=== PATIENT | female | born 1975 | race Caucasian/White ===

== ENCOUNTER 2016-11-12 18:23 | Emergency (ER) | payer MEDICAID ==
[~2016-11-12] VITALS: Ht 175.3 cm; Wt 110.2 kg
[~2016-11-12 18:23] MED LIST: BUSPAR 10MG TAB10 MG PO; LISINOPRIL 10MG10 MG PO; LISINOPRIL/HCTZ1 TA3 PO; LORTAB 5/3251 TAB PO; MELOXICAM15 MG PO; PAXIL40 M1 PO; TRAZODONE 50MG50 MG PO; WELLBUTRIN 150150 MG PO; ZANAFLEX4 MG NG
[2016-11-12] MEDS ORDERED: ZUBSOLV1 TA1 SL (18:39)
[2016-11-12 19:39] LABS: HEMOGLOBIN 14.2 g/dL (12.2-16.2); LYMPH # 2.3 K/mm3 (0.7-4.5); LYMPH % 23.2 % (10-50.0)
[2016-11-12 19:39] LABS: URINE BILIRUBIN - DIPSTICK NEGATIVE (NEG); URINE BLOOD NEGATIVE (NEG)
[2016-11-12 19:47] LABS: URINE SQUAMOUS CELLS OCC #/hpf (0-5)
--- NOTE | 2016-11-12 19:58 | Emergency Room Report ---
History of Present Illness Time Seen by 183 Presenting Problem in Triage Pt arrived:Wheelchair Presenting Problem:PT STATES SHE HAS FALLEN TWICE TODAY, STATES THE SECOND FALL SHE HIT THE BACK OF HER HEAD ON THE COFFEE TABLE. PT STATES PT LEGS HAS BEEN "JERKING" SINCE THIS MORNING. PT STATES SHE THINKS SHE HAD A SEIZURE. 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 N Clinical Suspician of Infection? N Mental Status: 1 - Regular (Normal Baseline) Sepsis Risk:Possible Sepsis Risk Have you (or family members/close friends) recently traveled outside the [place]? N If Yes, where/when: Have you had exposure to infectious disease within the past month? N TB? Other? Specify: Source patient, RN notes reviewed, family, RN/MD Exam Limitations no limitations Comment This is a 41-year-old female patient brought in to the emergency room by her by POPaulette after sustaining 2 falls, at home, earlier today. Patient advised that she has been having "jerking movements" since earlier today, which believes that could be seizures. She has had similar episodes (of "jerking") for the past 3 years (off and on), however she has never sought medical treatment for such complaints, as describes her (the patient) as "stubborn". During one of the falls, the patient hit the back of her head, but denies any loss of consciousness. The patient moved from [place] to [place] just recently and started going to Dr. Murray's office. ALLERGIES Coded Allergies: Penicillins (Intermediate, 10/06/16) codeine (Intermediate, 10/06/16) Home Medications Reported Medications Bupropion Hcl Sr (Wellbutrin SR 150MG) 150 MG PO BID Lisinopril & Hctz (Lisinopril-Hctz 10-12.5 MG Tab) 1 TAB PO DAILY #30 Paroxetine HCl (Paxil) 40 MG PO DAILY Buspirone Hcl (Buspar 10MG) 10 MG PO BID Meloxicam (Meloxicam 15MG) 15 MG PO DAILY TRAZODONE HCL (Trazodone HCl) 100 MG PO QHS TIZANIDINE HCL (Zanaflex) 4 MG NG Q8 BUPRENORPHINE HCL/NALOXONE HCL (Zubsolv 5.7-1.4 MG Tablet Sl) 1 TAB SL BID #14 History Medical History General CAD? No Angina: No [place]: No Hypertension? Yes Hyperlipidemia? No CHF? No DVT? No PE? No COPD? No Asthma? No Anemia? No GERD? No Gastric ulcers? No GI Bleed? No Hernia? No Thyroid Problems? No Hypothyroidism? No CVA? No Seizures? No Diabetes? No End Stage Renal Disease? No UTI? Yes Stones? No GB Disease: Yes Nephritic Syndrome? No Asplenia? No Hepatitis? No Sickle Cell Disease? No Arthritis? Yes Migraines? No Cataracts? No Glaucoma? No MRSA? No HIV? No TB? No Anxiety? Yes Depression? Yes Cancer? No More? 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 Social History Smoking Hx Smoker: Current Every Day Smoker Tobacco: Yes Type Cigarettes Packs/day 2 1/2 - 3 Packs Alcohol Alcohol: No Review of Systems All Other Systems Reviewed and Negative Psychiatric/Neurological headache, seizure Physical Exam Vital Signs Vital Signs Date Time Temp Pulse Resp B/P Pulse O2 O2 Flow FiO2 Ox Delivery Rate 11/13 2039 99.2 88 14 161/100 92 11/12 1946 88 14 161/100 92 11/12 1828 99.2 95 20 131/84 91 General Appearance normal appearance, WD/WN, mild distress Eye Exam - bilateral eye normal exam, bilateral eye PERRL, bilateral eye EOMI Neck normal inspection, non-tender, supple, full range of motion Respiratory Status Yes: trachea midline, chest symmetrical, non tender chest. No: respiratory distress. Lung Sounds bilateral: normal breath sounds, lungs clear. 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 Mental status normal mood/affect Skin intact, normal color, warm/dry Medical Decision Making LABS/Meds/Orders Pt receiving controlled substance in ED? No Comment Upon reevaluation patient appears medically stable, in minimal distress, clinically improving. Advised patient of results obtained, need to return to Dr. Murray's office and have additional outpatient follow-up (MRI brain with iv contrast). No antiepileptic treatment will need to be initiated at this time. Patient advised to avoid heights and operating machinery until seen and cleared by a neurologist. It turned out that Flaco Dunlap has already referred her to a neurologist, at . Results/Orders Laboratory Tests 11/12/161929: Urine Color YELLOW, Urine Appearance CLEAR, Urine pH 7.5, Ur Specific [place] <= 1.005, Urine Protein NEGATIVE, Urine Ketones NEGATIVE, Urine Blood NEGATIVE, Urine Nitrate NEGATIVE, Urine Bilirubin NEGATIVE, Urine Urobilinogen 0.2, Ur Leukocyte Esterase NEGATIVE, Ur Squamous Epith Cells OCC, Urine Glucose NEGATIVE 11/12/161909: Sodium 138, Potassium 3.9, Chloride 101, Carbon Dioxide 34 H, BUN 5 L, Creatinine 0.8, Estimated Creat Clear 163, Estimated GFR (MDRD) 79, Glucose 112 H, Calcium 8.6, Total Bilirubin 0.5, AST 19, ALT 77, Alkaline Phosphatase 86, Total Protein 7.1, Albumin 3.6, Globulin 3.5 H, Albumin/Globulin Ratio 1.0 L, WBC 9.8, RBC 4.32, Hgb 14.2, Hct 42.7, MCV 98.9 H, RDW 13.5, Plt Count 183, MPV 7.2 L, Gran % 72.6, Gran # 7.1, Lymphocytes % 23.2, Monocytes % 3.0, Eosinophils % 0.6, Basophils % 0.6, Lymphocytes # 2.3, Monocytes # 0.3, Eosinophils # 0.1, Basophils # 0.1, PUBS MCHC 33.3, MCH 32.9 H Current Medication Orders Sig/Michael Start time Last Medication Dose Route Stop Time Status Admin Lorazepam 1 MG ONCE ONE 11/12 2014 CAN IV 11/13 2015 Sodium Chloride 10 ML PRN PRN 11/12 184 DCD IV 11/13 1839 Orders Procedure Date/time Status DIET-NOTHING BY MOUTH 11/[address] HEAD W/O CONTRAST 11/[address] HEAD REQ 11/13 1839 Complete IV SALINE LOCK 11/13 1839 Active URINALYSIS/COMPLETE 11/13 1839 Complete CBC WITH AUTO DIFF 11/13 1839 Complete CHEM 12 PROFILE 11/13 1839 Complete XRAY/CT/US XRAY/CT/US CT head CT interpretation by discussed w/radiologist CT Results RIGHT parietal mass, with focal calcifications - per radiologist report. Departure Departure Time of Disposition 2017 Disposition DC Home or Self Care(routine) Clinical Impression Primary Impression: Brain mass Secondary Impressions: Seizures Condition STABLE Referrals Flaco Dunlap next wednesday Patient Instructions DI for Brain Tumor and Brain Cancer, Seizure Disorder -- Adult Additional Instructions The noncontrast CT scan of your brain that showed small mass in the medial RIGHT parietal lobe. He is to follow-up with Annie Dunlap in order to obtain a contrast MRI pf your brain, also follow-up with your neurologist, to whom you were already referred. Please do not operate machinery, do not climb on heights, do not drive to scene and cleared by the neurologist. No seizure medications are medically necessary at this time. A copy of your CT scan is attached. Discharge Counseling Counseled pt/family regarding diagnosis, test results, medications/RX, home care, follow up needs Comment The noncontrast CT scan of your brain that showed small mass in the medial RIGHT parietal lobe. He is to follow-up with Annie Dunlap in order to obtain a contrast MRI pf your brain, also follow-up with your neurologist, to whom you were already referred. Please do not operate machinery, do not climb on heights, do not drive to scene and cleared by the neurologist. No seizure medications are medically necessary at this time. A copy of your CT scan is attached. ED Critical Care Critical Care No at 0122
[2016-11-12 20:40] VITALS: BP 161/100
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
== END 2016-11-12 20:43 | disposition home or self-care (01) ==
LOC: ER 18:23
PROVIDERS: Emergency Medicine
DX: R22.0 Localized swelling, mass and lump, head (principal); I10 Essential (primary) hypertension; Z72.0 Tobacco use

== ENCOUNTER 2017-02-23 16:23 | Emergency (ER) | payer MEDICAID ==
[~2017-02-23] VITALS: Ht 175.3 cm; Wt 90.7 kg
[~2017-02-23 16:23] MED LIST changes: +GABAPENTIN800 MG PO; +KEPPRA500 MG PO; +NICOTINE PATCH;21 MG TD; +ZUBSOLV1 TA1 SL
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
--- OUTSIDE RECORDS SUMMARY | 2017-02-23 17:27 | External Medical Summary Rpt ---
Author Author , LORNA ROTHMAN Address Unknown Phone [email or web address] Care Team Providers Care Family And Consumer Education Teacher Name Role Phone SHEELA RAZ, AHMED RAZ Unavailable Unavailable WEN FREDA, WEN FREDA Unavailable Unavailable BEINEKE, BEINEKE Unavailable Unavailable DAMICO, DAMICO Unavailable Unavailable MARIE CAM, Unavailable Unavailable MARIE CAM CHIPPS JABIER & Unavailable Unavailable DUBILIER, CHIPPS JABIER & DUBILIER JUAN C, Unavailable Unavailable SILVIANO, JUAN C, SILVIANO [facility] Unavailable Unavailable [facility] CRIS, CRIS Unavailable Unavailable [facility] Unavailable Unavailable PHYSICAL THERA, [facility] ZACKARY RUIZ, Unavailable Unavailable ZACKARY RUIZ FOGG Unavailable Unavailable SNEHA HOOVER Unavailable Unavailable Pedrito MCPHERSON, VIDA, Unavailable Unavailable K KENTRELL BAILEY Unavailable Unavailable HARPEL, HARPEL Unavailable Unavailable [facility] Un[facility] Un[facility], [facility] Unavailable Unavailable HOSPITAL P, [facility] ANDREZ STROUD, MAGUIRE Unavailable Unavailable TIF PRO, PRO Unavailable Unavailable PRO, PRO Unavailable Unavailable [facility], Unavailable Unavailable [facility] MORALES LESIA, MORALES LESIA Unavailable Unavailable CASTRO, CASTRO Unavailable Unavailable ZACARIAS PRITCHARD ZACARIAS Unavailable Unavailable ADDY CAICEDO, Unavailable Unavailable ADDY [facility] Unavailable Unavailable IMAGING ASS, [facility] ESTELLE CADENA, ESTELLE CADENA Unavailable Unavailable VIJAYA LILLY JR JR Unavailable Unavailable ABHI DE LEON, Unavailable Unavailable ABHI DE LEON MULLINS Unavailable Unavailable JIN PORTILLO, PORTILLO Unavailable Unavailable PORTILLO JAM, PORTILLO Unavailable Unavailable JAM PAVEZ, PAVEZ Unavailable Unavailable ALEX BENTON, Unavailable Unavailable ALEX BENTON [facility] Unavailable Unavailable [facility], [facility] Unavailable Unavailable [facility], [facility] Un[facility] Un[facility], [facility] Unavailable Unavailable PLL[facility], [facility] Nilson MÁRQUEZ, Unavailable Unavailable Nilson MÁRQUEZ [facility], Unavailable Unavailable [facility], Unavailable Unavailable [facility] Unavailable Unavailable [facility], [facility] AMILCAR JAM, AMILCAR Unavailable Unavailable LILY [facility], Unavailable Unavailable [facility] TATIANNA FIERRO, TATIANNA LAR Unavailable Unavailable Purpose Continuity of Care Document - 11-10-2007 through 2016 Problems Code Diagnosis DOS Provider Status [id number] MYOPIA 01-26-2017 PRO BILATERAL N6012 DIFFUSE 12-28-2016 [facility] MASTOPATHY INC OF LEFT BREAST N951 MENOPAUSAL 12-28-2016 [facility] STATES R6882 DECREASED 12-28-2016 [facility] LIBIDO [facility] R928 OTH ABNORM 12-28-2016 [place] [facility] INCONCLUSIV IMAGING ASS E FIND ON DX IMAG BREAST N3644 MUSCULAR 12-25-2016 [facility] DISORDERS PHYSICIANS OF URETHRA GROUP I70176 ENCOUNTER 12-04-2016 [facility] EXAM [facility] GENERAL RTN INC W/O ABNORMAL FIND Z1231 ENCOUNTER 12-04-2016 [facility] MEDICAL MAMMO MALIG IMAGING ASS NEOPLASM BREAST I10 ESSENTIAL 11-30-2016 [facility] PRIMARY [facility] HYPERTENSIO GROUP N N393 STRESS 11-30-2016 [facility] INCONTINENC PHYSICIANS E FEMALE GROUP MALE N819 FEMALE 11-30-2016 [facility] GENITAL [facility]YS[facility] PROLAPSE GROUP UNSPECIFIED N9412 DEEP 11-30-2016 [facility] DYSPAREUNIA [facility] GROUP N952 POSTMENOPAU 11-30-2016 [facility] ATROPHIC GROUP VAGINITIS R4189 OTH SX & 11-30-2016 [facility] SIGNS INVLV PHYSICIANS COGNITIVE GROUP FUNC & AWARENESS R569 UNSPECIFIED 11-30-2016 [facility] CONVULSIONS GROUP R9089 OTH 11-30-2016 [facility] ABNORMAL PHYSICIANS FIND ON DX GROUP IMAGING CNTRL NERV SYS [id number] ENCOUNTER 11-30-2016 [facility] RN URGENT CARE EXAM PHYSICIANS GENERAL RTN GROUP W/ABNORMAL FIND Z1212 ENCOUNTER 11-30-2016 [facility] SCREENING PHYSICIANS MALIGNANT GROUP NEOPLASM RECTUM R220 LOCALIZED 11-12-2016 [facility] MASS AND INC LUMP HEAD R51 HEADACHE 11-12-2016 [facility] [id number] UNSPECIFIED 11-12-2016 [place] INJURY OF MEDICAL HEAD IMAGING ASS INITIAL ENCOUNTER Z720 TOBACCO USE 11-12-2016 [facility] I159 SECONDARY 11-09-2016 [facility] HYPERTENSIO [facility]YSICIANS N GROUP UNSPECIFIED R232 FLUSHING 11-09-2016 [facility] R531 WEAKNESS 11-09-2016 [facility] [id number] SLEEP 11-09-2016 [facility] DEPRIVATION [facility] GROUP K8010 CALCULUS GB 10-06-2016 [facility] W/CHRONIC JABIER & CHOLECYST DUBILIER W/O OBSTRUCTION K8020 CALCULUS GB 10-06-2016 [place] W/O MEDICAL CHOLECYSTIT IMAGING ASS IS W/O OBSTRUCTION K810 ACUTE 10-06-2016 COMM[facility]ITY CHOLECYSTIT ANESTH OF IS THE BLUE K828 OTHER 10-06-2016 [place] SPECIFIED MEDICAL DISEASES OF IMAGING ASS GALLBLADDER R1011 RIGHT UPPER 10-06-2016 [place] QUADRANT MEDICAL PAIN IMAGING ASS K8000 CALCULUS GB 10-05-2016 [facility] W/ACUTE [facility] P W/O OBSTRUCTION X36821 ENCOUNTER 10-05-2016 [place] FOR OTHER MEDICAL PREPROCEDUR IMAGING ASS AL EXAMINATION M899 DISORDER OF 08-05-2016 [facility] UNSPEC[facility] R109 UNSPECIFIED 07-23-2016 [facility] G8921 CHRONIC 07-22-2016 [facility] PAIN DUE TO [facility]MA [facility] [id number] PAIN IN 07-22-2016 [facility] LEFT HIP [facility] M5136 OTH 07-22-2016 [facility] INTERVERTEB [facility] RAL DISC HOSP DEGEN LUMBAR REGION V36440 PAIN IN 07-22-2016 [facility] LEFT LEG [facility] G629 POLYNEUROPA 06-22-2016 [facility] THY [facility] UNSPECIFIED H[facility]P M2140 FLAT FOOT 05-20-[address] [facility] UNSPECIFIED FOOT [id number] POSTERIOR 05-20-2016 [facility]IAL [facility] TENDINITIS [facility] UNSPECIFIED LEG R197 DIARRHEA 05-20-2016 [facility] G5600 CARPAL 04-17-2016 [facility] SYNDROME UNSPECIFIED UPPER LIMB G5603 CARPAL 04-16-[address] [facility] TUNNEL [facility] SYNDROME HOSP BILATERAL UPPER LIMBS M461 SACROILIITI 04-16-2016 [facility] S NOT [facility] ELSEWHERE HOSP CLASSIFIED M1612 UNILATERAL 04-15-[address] [facility] OSTEOARTHRI CENTER TIS LEFT HIP M1712 UNILATERAL 04-15-2016 [facility] PRIMARY RADIOLOG[facility] OSTEOARTHRI PLLC TIS LEFT KNEE N05170 PAIN IN 04-15-2016 [facility] UNSPECIFIED RADIOLOGY ANKLE PLLC M8580 OTH SPEC 04-15-2016 [facility] STRUCTURE UNS SITE M542 CERVICALGIA 02-12-2016 [facility] M5416 RADICULOPAT 02-10-2016 [facility] EDDY LUMBAR [facility] M545 LOW BACK 01-08-2016 [facility] PAIN [facility] G8929 OTHER 11-13-2015 [facility] U68499 PAIN IN 11-13-2015 [facility] M97969 PAIN IN 11-13-2015 [facility] THIGH MEDICAL CENTER Z5181 ENCOUNTER 11-13-2015 [facility] CENTER DRUG LEVEL MONITORING Z58995 FPC 11-13-2015 [facility] CURRENT USE MEDICAL OF OPIATE CENTER ANALGESIC T1490 INJURY 06-14-2015 [place] UNSPECIFIED MEDICAL [place] K80209 OTHER LONG 06-14-2015 [facility] MEDICAL CURRENT CENTER DRUG THERAPY M5417 RADICULOPAT 05-21-2015 [facility] EDDY [facility] LUMBOSACRAL HOSP REGION M532X8 SPINAL 05-09-2015 [facility] INSTABILITI [facility] ES SAC HOSP SACROCOCCYG EAL REGION Z9889 OTHER 04-17-2015 [facility] SPECIFIED [facility] POSTPROCEDU HOSP RAL STATES N800 ENDOMETRIOS 04-16-2015 [facility] IS OF [facility] UTERUS HOSP N812 INCOMPLETE 04-16-2015 [facility] UTEROVAGINA [facility] L PROLAPSE HOSP N814 UTEROVAGINA 04-16-2015 [facility] L PROLAPSE MEDICAL UNSPECIFIED CENTER N938 OTHER SPEC 04-16-2015 [facility] ABNORMAL [facility] UTERINE & HOSP VAGINAL BLEEDING 70162 DEGEN 04-10-2015 [facility] LUMBAR/LUMB [facility] OSACRAL HOSP INTERVERTEB RAL DISC 7242 LUMBAGO 04-10-2015 [facility] 7244 THORACIC/MANDI 04-10-2015 [facility] MBOSACRAL [facility] NEURITIS/RA HOSP DICULITIS UNSPEC 7246 DISORDERS 04-10-2015 [facility] OF SACRUM [facility] 7202 SACROILIITI 04-04-2015 [facility] S NOT [facility] ELSEWHERE HOSP CLASSIFIED 6264 IRREGULAR 03-28-2015 [facility] MENSTRUAL [facility] CYCLE HOSP 6268 OTH D/O 03-28-2015 [facility] MENSTRUATIO [facility] N&OTH ABN HOSP BLEED FE GNT TRACT 08502 DISORDER OF 02-18-2015 [facility] UNSPECIFIED 47540 HYPERTENSIO 02-18-2015 [facility] Salazar [facility] V5869 LONG-TERM 02-18-2015 [facility] (CURRENT) MEDICAL USE OF [place] OTHER MEDICATIONS V5883 ENCOUNTER 02-18-2015 [facility] THERAPEUTIC [place] DRUG MONITORING V700 ROUTINE 02-18-2015 [facility] EXAM@HEALTH CARE FACL 24968 PAIN IN 02-11-2015 [facility] JOINT [facility] PELVIC HOS[facility] REGION AND THIGH 7197 DIFFICULTY 02-11-2015 [facility] IN WALKING [place] PHYSICAL THERA 7243 SCIATICA 02-11-2015 [facility] PHYSICAL THERA 4019 UNSPECIFIED 01-14-2015 [facility] INC N 7213 LUMBOSACRAL 01-14-2015 [facility] SPONDYLOSIS [place] WITHOUT MYELOPATHY V725 RADIOLOGICA 01-14-2015 [facility] Ontiveros RADIOLOGY EXAMINATION [facility] NEC 7245 UNSPECIFIED 12-27-2014 [facility] BACKACHE RADIOLOGY PLL 6110 INFLAMMATOR 05-30-2014 [facility] Y DISEASE [facility] [place] 58648 UNSPECIFIED 10-17-2009 [facility] V720 EXAMINATION 10-10-2009 [facility], OF EYES ABHI G AND VISION 9594 INJURY 02-05-2009 [facility] OTHER AND RADIOLOGY UNSPECIFIED PLL HAND EXCEPT FINGER 6202 OTHER AND 01-10-2008 [facility] 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 [facility] 6262 EXCESSIVE 01-10-2008 [facility] OR 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 [facility]ENSTRUATIO [facility] 35576 ABDOMINAL 01-08-2008 DIAGNOSTIC PAIN RIGHT [facility] QUADRANT 3671 MYOPIA 11-10-2007 COUCH-COM PTON, SILVIANO 96503 UNSPECIFIED 11-10-2007 COUCH-COM PTON, ASTIGMATISM SILVIANO Medications Na ND Rx Da Fi Fi Am Da Di Ph RX Ph St me C No te ll ll ou ys ag ar # ys at rm s nt no ma ic us Or Da si cy ia de te s n re d NI 00 07 08 28 28 00 HO Ac CO 53 -1 -1 .0 00 ME ti TI 65 8- 1- 00 06 TO ve NE 89 20 20 09 WN 68 17 17 08 21 8 81 PH AR MG MA /2 CY 4H R OF PA TC CY H NT HI AN A BU 68 07 08 30 30 00 HO Ac NJ 00 -1 -0 .0 00 ME ti OP 10 2- 4- 00 06 TO ve IO 28 20 20 08 WN N 70 17 17 61 HC 3 17 PH L AR XL MA CY 15 0 OF MG CY TA NT BL HI ET AN A OX 62 07 08 30 30 00 HO Ac YB 17 -1 -0 .0 00 ME ti UT 50 2- 4- 00 06 TO ve YN 27 20 20 08 WN IN 13 17 17 90 7 89 PH CL AR MA ER CY 10 OF MG CY NT TA HI BL AN ET A PA 68 07 08 30 30 00 HO Ac RO 38 -1 -0 .0 00 ME ti XE 20 2- 4- 00 06 TO ve TI 00 20 20 08 WN NE 10 17 17 92 6 54 PH HC AR L MA 40 CY MG OF TA CY BL NT ET HI AN A BU 00 07 08 60 30 00 HO Ac SP 11 -1 -0 .0 00 ME ti IR 51 2- 4- 00 06 TO ve ON 69 20 20 09 WN E 10 17 17 05 HC 2 93 PH L AR 10 MA CY MG OF TA BL CY ET NT HI AN A ME 68 06 07 30 30 00 HO Ac LO 38 -2 -2 .0 00 ME ti XI 20 9- 8- 00 06 TO ve CA 05 20 20 08 WN M 00 17 17 98 7. 5 94 PH 5 AR MG MA CY TA BL OF ET CY NT HI AN A GA 68 06 07 90 30 00 HO Ac BA 00 -2 -2 .0 00 ME ti PE 10 9- 8- 00 06 TO ve NT 00 20 20 08 WN IN 70 17 17 98 3 93 PH 80 AR 0 MA MG CY TA OF BL ET CY NT HI AN A TR 50 06 07 30 30 00 HO Ac AZ 11 -2 -2 .0 00 ME ti OD 10 9- 8- 00 06 TO ve ON 43 20 20 08 WN E 40 17 17 98 10 2 92 PH 0 AR MG MA CY TA BL OF ET CY NT HI AN A TI 29 06 07 90 30 00 HO Ac ZA 30 -2 -2 .0 00 ME ti NI 00 9- 8- 00 06 TO ve DI 16 20 20 08 WN NE 91 17 17 98 0 91 PH HC AR L MA 4 CY MG OF TA BL CY ET NT HI AN A LI 68 06 07 30 30 00 HO Ac SI 18 -2 -2 .0 00 ME ti NO 00 9- 8- 00 06 TO ve NJ 51 20 20 08 WN IL 90 17 17 98 -H [address] AR Z MA 20 CY -1 2. OF 5 MG CY NT TA HI B AN A NI 00 06 07 28 28 00 HO Ac CO 53 -1 -1 .0 00 ME ti TI 65 9- 4- 00 06 TO ve NE 89 20 20 08 WN 68 17 17 93 21 8 05 PH AR MG MA /2 CY 4H R OF PA TC CY H NT HI AN A PA 68 06 07 30 30 00 HO Ac RO 38 -1 -1 .0 00 ME ti XE 20 9- 4- 00 06 TO ve TI 00 20 20 08 WN NE 10 17 17 92 6 54 PH HC AR L MA 40 CY MG OF TA CY BL NT ET HI AN A BU 68 06 07 30 30 00 HO Ac NJ 00 -1 -1 .0 00 ME ti OP 10 6- 4- 00 06 TO ve IO 28 20 20 08 WN N 70 17 17 61 HC 3 17 PH L AR XL MA CY 15 0 OF MG CY TA NT BL HI ET AN A OX 62 06 07 30 30 00 HO Ac YB 17 -1 -1 .0 00 ME ti UT 50 6- 4- 00 06 TO ve YN 27 20 20 08 WN IN 13 17 17 90 7 89 PH CL AR MA ER CY 10 OF MG CY NT TA HI BL AN ET A ME 68 05 06 30 30 00 HO Ac LO 38 -3 -2 .0 00 ME ti XI 20 1- 3- 00 06 TO ve CA 05 20 20 08 WN M 00 17 17 79 7. 5 90 PH 5 AR MG MA CY TA BL OF ET CY NT HI AN A TI 29 05 06 90 30 00 HO Ac ZA 30 -3 -2 .0 00 ME ti NI 00 1- 3- 00 06 TO ve DI 16 20 20 08 WN NE 91 17 17 79 0 89 PH HC AR L MA 4 CY MG OF TA BL CY ET NT HI AN A LI 68 05 06 30 30 00 HO Ac SI 18 -3 -2 .0 00 ME ti NO 00 1- 3- 00 06 TO ve NJ 51 20 20 08 WN [place] 90 17 17 79 -H [address] AR Z MA 20 CY -1 2. OF 5 MG CY NT TA HI B AN A TR 50 05 06 30 30 00 HO Ac AZ 11 -3 -2 .0 00 ME ti OD 10 1- 3- 00 06 TO ve ON 43 20 20 08 WN E 40 17 17 79 10 2 87 PH 0 AR MG MA CY TA BL OF ET CY NT HI AN A GA 68 05 06 90 30 00 HO Ac BA 00 -3 -2 .0 00 ME ti PE 10 0- 3- 00 06 TO ve NT 00 20 20 08 WN IN 70 17 17 79 3 07 PH 80 AR 0 MA MG CY TA OF BL ET CY NT HI AN A OX 62 05 06 14 14 00 HO Ac YB 17 -2 -1 .0 00 ME ti UT 50 2- 6- 00 06 TO ve YN 27 20 20 08 WN IN 13 17 17 75 7 01 PH CL AR MA ER CY 10 OF MG CY NT TA HI BL AN ET A BU 00 05 06 60 30 00 HO Ac SP 11 -1 -0 .0 00 ME ti IR 51 5- 9- 00 06 TO ve ON 69 20 20 08 WN E 10 17 17 61 HC 2 16 PH L AR 10 MA CY MG OF TA BL CY ET NT HI AN A PA 68 05 06 30 30 00 HO Ac RO 38 -1 -0 .0 00 ME ti XE 20 5- 9- 00 06 TO ve TI 00 20 20 08 WN NE 10 17 17 61 6 15 PH HC AR L MA 40 CY MG OF TA CY BL NT ET HI AN A LI 68 05 05 30 30 00 HO Ac SI 18 -0 -2 .0 00 ME ti NO 00 1- 6- 00 06 TO ve NJ 51 20 20 08 WN [place] 90 17 17 61 -H [address] AR Z MA 20 CY -1 2. OF 5 MG CY NT TA HI B AN A TR 50 05 05 30 30 00 HO Ac AZ 11 -0 -2 .0 00 ME ti OD 10 1- 6- 00 06 TO ve ON 43 20 20 08 WN E 40 17 17 61 10 2 18 PH 0 AR MG MA CY TA BL OF ET CY NT HI AN A BU 68 05 05 30 30 00 HO Ac NJ 00 -0 -2 .0 00 ME ti OP 10 1- 6- 00 06 TO ve IO 28 20 20 08 WN N 70 17 17 61 HC 3 17 PH L AR XL MA CY 15 0 OF MG CY TA NT BL HI ET AN A TI 29 05 05 90 30 00 HO Ac ZA 30 -0 -2 .0 00 ME ti NI 00 1- 6- 00 06 TO ve DI 16 20 20 08 WN NE 91 17 17 61 0 14 PH HC AR L MA 4 CY MG OF TA BL CY ET NT HI AN A ME 68 05 05 30 30 00 HO Ac LO 38 -0 -2 .0 00 ME ti XI 20 1- 6- 00 06 TO ve CA 05 20 20 08 WN M 00 17 17 61 7. 5 13 PH 5 AR MG MA CY TA BL OF ET CY NT HI AN A GA 68 05 05 90 30 00 HO Ac BA 00 -0 -2 .0 00 ME ti PE 10 1- 6- 00 06 TO ve NT 00 20 20 08 WN IN 70 17 17 61 3 12 PH 80 AR 0 MA MG CY TA OF BL ET CY NT HI AN A LI 68 04 05 30 30 00 RI Ac SI 18 -2 -1 .0 00 TE ti NO 00 4- 9- 00 01 ve NJ 51 20 20 17 AI IL 80 17 17 54 D -H [address] AR Z MA 10 CY -1 2. #3 5 93 MG 8 TA B TI 55 04 05 60 30 00 RI Ac ZA 11 -1 -0 .0 00 TE ti NI 10 2- 5- 00 01 ve DI 18 20 20 17 AI NE 01 17 17 54 D 5 35 PH HC AR L MA 4 CY MG #3 TA 93 BL 8 ET BU 00 04 05 60 30 00 RI Ac NJ 18 -1 -0 .0 00 TE ti OP 50 2- 5- 00 01 ve IO 41 20 20 17 AI N 56 17 17 54 D HC 0 44 PH L AR SR MA CY 15 0 #3 MG 93 8 TA BL ET TR 50 04 05 60 30 00 RI Ac AZ 11 -1 -0 .0 00 TE ti OD 10 2- 5- 00 01 ve ON 43 20 20 17 AI E 30 17 17 54 D 50 1 40 PH AR MG MA CY TA BL #3 ET 93 8 PA 43 04 05 30 30 00 RI Ac RO 54 -1 -0 .0 00 TE ti XE 70 2- 5- 00 01 ve TI 35 20 20 17 AI NE 00 17 17 54 D 3 41 PH HC AR L MA 40 CY MG #3 93 TA 8 BL ET BU 68 04 05 60 30 00 RI Ac SP 38 -1 -0 .0 00 TE ti IR 20 2- 5- 00 01 ve ON 18 20 20 17 AI E 10 17 17 54 D HC 1 37 PH L AR 10 MA CY MG #3 TA 93 BL 8 ET ME 68 04 05 30 30 00 RI Ac LO 38 -1 -0 .0 00 TE ti XI 20 2- 5- 00 01 ve CA 05 20 20 17 AI M 10 17 17 54 D 15 1 29 PH AR MG MA CY TA BL #3 ET 93 8 HY 00 03 04 [address] 40 -2 -2 .0 00 TE ti OC 60 9- 1- 00 01 ve OD 12 20 20 17 AI ON 30 17 17 75 D -A 1 90 PH CE AR TA MA WI CY NO PH #3 EN 93 8 5- 32 5 LI 68 03 04 30 30 00 RI Ac SI 18 -1 -1 .0 00 TE ti NO 00 9- 4- 00 01 ve NJ 51 20 20 17 AI IL 80 17 17 54 D -H [address] AR Z MA 10 CY -1 2. #3 5 93 MG 8 TA B BU 00 03 04 60 30 00 RI Ac NJ 18 -1 -0 .0 00 TE ti OP 50 5- 7- 00 01 ve IO 41 20 20 17 AI N 56 17 17 54 D HC 0 44 PH L AR SR MA CY 15 0 #3 MG 93 8 TA BL ET PA 43 03 04 30 30 00 RI Ac RO 54 -1 -0 .0 00 TE ti XE 70 5- 7- 00 01 ve TI 35 20 20 17 AI NE 00 17 17 54 D 3 41 PH HC AR L MA 40 CY MG #3 93 TA 8 BL ET TR 50 03 04 60 30 00 RI Ac AZ 11 -1 -0 .0 00 TE ti OD 10 5- 7- 00 01 ve ON 43 20 20 17 AI E 30 17 17 54 D 50 1 40 PH AR MG MA CY TA BL #3 ET 93 8 BU 68 03 04 60 30 00 RI Ac SP 38 -1 -0 .0 00 TE ti IR 20 5- 7- 00 01 ve ON 18 20 20 17 AI E 10 17 17 54 D HC 1 37 PH L AR 10 MA CY MG #3 TA 93 BL 8 ET TI 55 03 04 60 30 00 RI Ac ZA 11 -1 -0 .0 00 TE ti NI 10 5- 7- 00 01 ve DI 18 20 20 17 AI NE 01 17 17 54 D 5 35 PH HC AR L MA 4 CY MG #3 TA 93 BL 8 ET ME 68 03 04 30 30 00 RI Ac LO 38 -1 -0 .0 00 TE ti XI 20 5- 7- 00 01 ve CA 05 20 20 17 AI M 10 17 17 54 D 15 1 29 PH AR MG MA CY TA BL #3 ET 93 8 LI 68 02 03 30 30 00 VA Ac SI 18 -2 -2 .0 00 LL ti NO 00 4- 4- 00 00 EY ve NJ 51 20 20 84 IL 80 17 17 90 DI -H [address] OU Z NT 10 -1 PH 2. AR 5 MA MG CY TA B TR 50 02 03 60 31 00 VA Ac AZ 11 -1 -1 .0 00 LL ti OD 10 4- 0- 00 00 EY ve ON 43 20 20 84 E 30 17 17 90 DI 50 3 47 SC OU MG NT TA PH BL AR ET MA CY PA 68 02 03 30 30 00 VA Ac RO 38 -1 -1 .0 00 LL ti XE 20 4- 0- 00 00 EY ve TI 00 20 20 84 NE 10 17 17 90 DI 6 46 SC HC OU L NT 40 PH MG AR MA TA CY BL ET BU 69 02 03 60 30 00 VA Ac NJ 09 -1 -1 .0 00 LL ti OP 70 4- 0- 00 00 EY ve IO 87 20 20 84 N 81 17 17 90 DI HC 2 45 SC L OU SR NT 15 PH 0 AR MG MA CY TA BL ET TI 29 02 03 60 30 00 VA Ac ZA 30 -1 -1 .0 00 LL ti NI 00 4- 0- 00 00 EY ve DI 16 20 20 84 NE 91 17 17 90 DI 0 44 SC HC OU L NT 4 MG PH AR TA MA BL CY ET ME 68 02 03 30 30 00 VA Ac LO 38 -1 -1 .0 00 LL ti XI 20 4- 0- 00 00 EY ve CA 05 20 20 84 M 10 17 17 90 DI 15 5 43 SC OU MG NT TA PH BL AR ET MA CY BU 00 02 03 60 30 00 VA Ac SP 59 -1 -1 .0 00 LL ti IR 10 4- 0- 00 00 EY ve ON 65 20 20 84 E 80 17 17 90 DI HC 5 42 SC L OU 10 NT MG PH AR TA MA BL CY ET LI 68 01 02 30 30 00 VA Ac SI 18 -2 -1 .0 00 LL ti NO 00 3- 7- 00 00 EY ve NJ 51 20 20 84 IL 80 17 17 03 DI -H [address] OU Z NT 10 -1 PH 2. AR 5 MA MG CY TA B GA 68 01 02 90 30 00 VA Ac BA 00 -2 -1 .0 00 LL ti PE 10 3- 7- 00 00 EY ve NT 00 20 20 84 IN 70 17 17 57 DI 3 76 SC 80 OU 0 NT MG PH TA AR BL MA ET CY BU 00 01 02 60 30 00 VA Ac SP 59 -1 -0 .0 00 LL ti IR 10 0- 3- 00 00 EY ve ON 65 20 20 84 E 80 17 17 03 DI HC 5 33 SC L OU 10 NT MG PH AR TA MA BL CY ET BU 69 01 02 60 30 00 VA Ac NJ 09 -1 -0 .0 00 LL ti OP 70 0- 3- 00 00 EY ve IO 87 20 20 84 N 81 17 17 03 DI HC 2 35 SC L OU SR NT 15 PH 0 AR MG MA CY TA BL ET ME 68 01 02 30 30 00 VA Ac LO 38 -1 -0 .0 00 LL ti XI 20 0- 3- 00 00 EY ve CA 05 20 20 84 M 10 17 17 03 DI 15 5 36 SC OU MG NT TA PH BL AR ET MA CY PA 68 01 02 30 30 00 VA Ac RO 38 -1 -0 .0 00 LL ti XE 20 0- 3- 00 00 EY ve TI 00 20 20 84 NE 10 17 17 03 DI 5 37 SC HC OU L NT 40 PH MG AR MA TA CY BL ET TR 50 01 02 60 30 00 VA Ac AZ 11 -1 -0 .0 00 LL ti OD 10 0- 3- 00 00 EY ve ON 43 20 20 84 E 30 17 17 03 DI 50 3 38 SC OU MG NT TA PH BL AR ET MA CY TI 29 01 02 60 30 00 VA Ac ZA 30 -1 -0 .0 00 LL ti NI 00 0- 3- 00 00 EY ve DI 16 20 20 84 NE 91 17 17 03 DI 0 40 SC HC OU L NT 4 MG PH AR TA MA BL CY ET HY 00 01 02 [address] 60 -1 -0 0. 00 LL ti OC 33 1- 3- 00 00 EY ve OD 89 20 20 0 84 ON 12 17 17 57 DI -A 1 77 SC CE OU TA NT WI NO PH PH AR MA 7. CY 5- 32 5 GA 68 12 01 90 30 00 VA Ac BA 00 -2 -2 .0 00 LL ti PE 10 3- 0- 00 00 EY ve NT 00 20 20 84 IN 70 16 17 30 DI 3 99 SC 80 OU 0 NT MG PH TA AR BL MA ET CY LI 68 12 01 30 30 00 VA Ac SI 18 -2 -2 .0 00 LL ti NO 00 3- 0- 00 00 EY ve NJ 51 20 20 84 [place] 80 16 17 03 DI -H [address] OU Z NT 10 -1 PH 2. AR 5 MA MG CY TA B ME 51 12 01 0. 30 00 RX Ac LO 55 -2 -2 24 00 ti XI 21 2- 0- 0 00 DI ve CA 37 20 20 90 SC M 70 16 17 29 OU PO 8 64 NT WD ER PH AR MA CY TI 29 12 01 60 30 00 VA Ac ZA 30 -0 -0 .0 00 LL ti NI 00 9- 9- 00 00 EY ve DI 16 20 20 84 NE 91 16 17 03 DI 0 40 SC HC OU L NT 4 MG PH AR TA MA BL CY ET TR 50 12 01 60 30 00 VA Ac AZ 11 -0 -0 .0 00 LL ti OD 10 9- 9- 00 00 EY ve ON 43 20 20 84 E 30 16 17 03 DI 50 3 38 SC OU MG NT TA PH BL AR ET MA CY PA 68 12 01 30 30 00 VA Ac RO 38 -0 -0 .0 00 LL ti XE 20 9- - 00 EY ve TI 00 20 20 84 NE 10 16 17 03 DI 5 37 SC HC OU L NT 40 PH MG AR MA TA CY BL ET ME 68 12 01 30 30 00 VA Ac LO 38 -0 -0 .0 00 LL ti XI 20 9- - 00 EY ve CA 05 20 20 84 M 10 16 17 03 DI 15 5 36 SC OU MG NT TA PH BL AR ET MA CY BU 69 12 01 60 30 00 VA Ac NJ 09 -0 -0 .0 00 LL ti OP 70 9 9- 00 00 EY ve IO 87 20 20 84 N 81 16 17 03 DI HC 2 35 SC L OU SR NT 15 PH 0 AR MG MA CY TA BL ET BU 00 12 01 60 30 00 VA Ac SP 59 -0 -0 .0 00 LL ti IR 10 9- 9- 00 00 EY ve ON 65 20 20 84 E 80 16 17 03 DI HC 5 33 SC L OU 10 NT MG PH AR TA MA BL CY ET HY 00 12 01 [address] 60 -1 -0 0. 00 LL ti OC 33 2- 9- 00 00 EY ve OD 89 20 20 0 84 ON 12 16 17 30 DI -A 1 98 SC CE OU TA NT WI NO PH PH AR MA 7. CY 5- 32 5 00 04 04 0 20 3 VA 63 WH Ac 59 -1 -1 .0 LL 25 IT ti 10 2- 2- 00 EY 32 T ve 34 20 20 SP 90 10 10 DI RA 5 SO DL UN IN T PH HE AR AT MA HE CY R P 00 04 04 0 28 7 VA 63 CO Ac 78 -0 -0 .0 LL 24 LL ti 12 8- 9- 00 EY 70 IN ve 11 20 20 S 20 10 10 DI JE 1 SO NN UN IF T ER PH AR MA CY 53 04 04 0 24 8 VA 63 CO Ac 74 -0 -0 .0 LL 24 LL ti 60 8- 9- 00 EY 71 IN ve 13 20 20 S 70 10 10 DI JE 5 SO NN UN IF T ER PH AR MA CY 00 07 07 01 30 7 58 No Ac 59 -0 -1 .0 RG 57 t ti 10 2- 7- 00 IE 31 Av ve 54 20 20 ai 00 08 08 CL la 5 IN bl IC e PH AR M 00 07 07 00 30 7 58 No Ac 59 -0 -1 .0 RG 57 t ti 10 2 7- 00 IE 31 Av ve 54 20 20 ai 00 08 08 CL la 5 IN bl IC e PH AR M Procedures Procedure DOS Code Location Performer Comment FITTING 47578 [facility] SPECTACLE 7 S XCPT APHAKIA MONOFOCAL OPHTH 65009 [facility] 7 XM&EVAL COMPRE NEW PT 1/> VST THERAPEUT 39368 [facility] 7 PHYSICIAN PROPHYLAC S GROUP TIC/DX INJECTION SUBQ/IM DIAGNOSTI G0206 [facility] 7 MEDICAL MAMMOGRAP IMAGING HY INCL ASS CAD WHEN PERF; UNI DIAGNOSTI 96031 INGR[facility] QUINTERO C 7 [facility] MAMMOGRAP INC INC HY COMPUTER- AIDED DETCJ UNI INFO 7025F [facility] 7 MEDICAL ANALYSIS IMAGING ABNORMAL ASS INTERPRAT E SCREENING G0202 [place] [address] MEDICAL MAMMOGRAP IMAGING HY DAYANARA ASS INCL CAD WHEN PERFORMD SCREENING 18994 INGRID QUINTERO 7 [facility] MAMMOGRAP INC INC HY BI 2-VIEW BREAST INC CAD MAMMO 3340F [facility] ASSESSMEN 7 MEDICAL T CAT IMAGING INCOMP ASS ADDTNL IMAGE DOCD CULTURE 11434 [facility] CHLAMYDIA 7 PHYSICIAN ANY S GROUP SOURCE IADNA 80649 [facility] NEISSERIA 7 PHYSICIAN S GROUP GONORRHOE AE DIRECT PROBE TQ BLOOD 50122 [facility] OCCULT 7 PHYSICIAN PHYSICIAN PEROXIDAS S GROUP S GROUP E ACTV QUAL FECES 1-3 SPEC URNLS DIP 75498 [facility] QU[facility]O 7 [facility] STICK/TAB INC INC LET REAGENT AUTO MICROSCOP Y COMPREHEN 54586 [facility] QUINTERO SIVE 7 [facility] METABOLIC INC INC PANEL FINAL G9638 [place] [facility] RE[facility] 7 MEDICAL W/O DOC IMAGING 1/MORE ASS DOSE REDUCTION TECH COLLECTIO 79691 INGRID QUINTERO N VENOUS 7 [facility] BLOOD INC INC VENIPUNCT URE BLOOD 67663 INGRID QUINTERO COUNT 7 [facility] COMPLETE INC INC AUTO&[place] [address] [place] HEAD/BRAI 7 MEDICAL N W/O IMAGING CONTRAST ASS [facility] G0378 INGRID QUINTERO OBSERVATI 7 [facility] ON INC INC SERVICE PER HOUR ANES 90254 [facility] INTRAPERI 7 ANESTH TONEAL OF THE UPPER BLUE ABDOMEN W/LAPS NOS BLOOD 12659 INGRID QUINTERO COUNT 7 [facility] COMPLETE INC INC AUTO&AUTO DIFRNTL WBC LEVEL III 12578 CHIPPS PICKLESIM SURG 7 JABIER & ER JR PATHOLOGY DUBILIER GROSS&JACE ROSCOPIC EXAM COLLECTIO 76121 INGRID QUINTERO N VENOUS 7 [facility] BLOOD INC INC VENIPUNCT URE LAPAROSCO 15980 INGRID QUINTERO PY SURG 7 [facility] [address] [place] [place] ABDOMINAL 7 MEDICAL REAL IMAGING TIME ASS W/IMAGE LIMITED FINAL [id number] [facility] [place] REPR ABD 7 MEDICAL IMAG STS IMAGING W/O ASS INCIDNT FND LES NTD: ECG 77329 INGRID LILLY JR ROUTINE 7 [facility] W/LEAST P 12 LDS I&R ONLY URNLS DIP 89480 INGRID QUINTERO 7 [facility] STICK/TAB INC INC LET REAGENT AUTO MICROSCOP Y COMPREHEN 13185 INGRID QUINTERO SIVE 7 [facility] [place] [address] INGRID QUINTERO AMYLASE 7 [facility] INC INC BLOOD 74160 INGRID QUINTERO COUNT 7 [facility] COMPLETE INC INC AUTO&AUTO DIFRNTL WBC RADIOLOGI 88234 [facility] C EXAM 7 MEDICAL CHEST 2 IMAGING VIEWS ASS FRONTAL&L ATERAL THERAPEUT 86220 INGRID QUINTERO IC 7 [facility]OSP INJECTION INC INC IV PUSH EACH [facility] G0378 INGRID QUINTERO OBSERVATI 7 [facility] HOSP ON INC INC SERVICE PER HOUR THER 67067 INGRID QUINTERO PROPH/DX 7 [facility] NJX EA INC INC SEQL IV PUSH SBST/[place] [address] INGRID QUINTERO ABDOMEN & 7 [facility] PELVIS INC INC W/O CONTRAST MATERIAL THER 99455 INGRID QUINTERO PROPH/DX 7 [facility] NJX IV INC INC PUSH SINGLE/1S T SBST/DRUG ECG 99161 INGRID QUINTERO ROUTINE 7 [facility] ECG INC INC W/LEAST 12 LDS TRCG ONLY W/O I&[place] [address] INGRID QUINTERO LIPASE 7 [facility] INC INC DXA BONE 96986 YAZMIN PFEIFFER DENSITY 7 STUDY 1/> RADIOLOGY SITES [facility] [place] [address] YAZMIN ARCE AMYLASE 7 [facility] COMPREHEN 11884 YAZMIN ARCE SIVE 7 [facility] METABOLIC [facility] PANEL COLLECTIO 36501 YAZMIN ARCE N VENOUS 7 [facility] BLOOD [facility] VENIPUNCT URE URNLS DIP 60652 YAZMIN ARCE 7 [facility] STICK/TAB CENTER CENTER LET REAGENT AUTO MICROSCOP Y LIPID 98728 YAZMIN ARCE PANEL 7 [facility] BLOOD 39635 YAZMIN ARCE COUNT 7 [facility] COMPLETE [facility] AUTO&[place] [address] YAZMIN ARCE LIPASE [address] [place] [address] [place] [address] YAZMIN ARCE ABDOMINAL 6 [facility] REAL [facility] TIME W/IMAGE DOCUMENTA TION OVA&MABEL 58024 YAZMIN ARCE ITES 6 [facility] DIRECT [facility] SMEARS CONCENTRA TION & ID IAADIADOO 13285 YAZMIN ARCE NOT 6 [facility] OTHERWISE [facility] SPECIFIED INF AGENT 83355 YAZMIN ARCE DET 6 [facility] NUCLEIC [facility] ACID CLOSTRIDI UM AMP PROBE SMR PRIM 84762 YAZMIN ARCE SRC CPLX 6 [facility] SPEC [facility] STAIN OVA&MABEL ITS DRUG TST G0477 YAZMIN ARCE PRESUMP;C 6 [facility] PBL BEING CENTER CENTER READ DC OPT OBV ONLY CUL BACT 56685 YAZMIN ARCE STOOL 6 [facility] AEROBIC CENTER CENTER ISOL SALMONELL A&SHIGELL WRIST L3908 RX RX HAND 6 [facility] EXT CONTROL COCK-UP PREFAB RADIOLOGI 21425 YAZMIN Mann 6 MEDICAL MEDICAL EXAMINATI CENTER CENTER ON KNEE 3 VIEWS RADEX HIP 47327 YAZMIN ARCE 6 [facility] UNILATERA [facility] L WITH PELVIS 2-3 VIEWS RADIOLOGI 12706 [place] C 6 MEDICAL MEDICAL EXAMINATI [facility] ON FEMUR MINIMUM 2 VIEWS RADEX 01867 YAZMIN ARCE ANKLE 6 [facility] COMPLETE CENTER CENTER MINIMUM 3 VIEWS DRUG TST G0477 YAZMIN ARCE PRESUMP;C 6 [facility] MEDICAL PBL BEING CENTER CENTER READ DC OPT OBV ONLY NERVE 50782 YAZMIN COKER RAZ CONDUCTIO 6 N STUDIES CONGREGATIONAL 5-6 HOSP STUDIES RADIOLOGI 24960 YAZMIN ARCE C 5 [facility] EXAMINATI [facility] ON FEMUR 2 VIEWS DRUG SCR G0434 YAZMIN ARCE NOT 5 [facility] CHROMATOG CENTER CENTER RAPHIC; ANY NUMBER PT ENC THER 15951 YAZMIN ARCE PROPH/DX 5 [facility] NJX EA [facility] SEQL IV PUSH SBST/DRUG FAC POSTOP 27163 YAZMIN SHAH FOLLOW UP 5 JIN VISIT [facility] TO ORIGINAL PX INFLUENZA Q2038 YAZMIN ARCE VACC 5 [facility] SPLIT [facility] VIRUS 3 YRS & > IM FLUZONE INJECTION J2270 YAZMIN ARCE MORPHINE [address] [place] [address] MEDICAL SULFATE [facility] UP TO 10 MG IM ADM 23585 YAZMIN ARCE PRQ ID 5 [facility] SUBQ/IM CENTER CENTER NJXS 1 VACCINE INJECTION J2405 YAZMIN ARCE [address] [place] [address] ONDANSETR [facility] ON HCL PER 1 MG COLLECTIO 88922 YAZMIN ARCE N VENOUS [address] [place] [address] BLOOD [facility] VENIPUNCT URE INJECTION J2270 YAZMIN ARCE MORPHINE [address] [place] [address] MEDICAL SULFATE [facility] UP TO 10 MG INJECTION J0690 YAZMIN ARCE [address] [place] [address] CEFAZOLIN CENTER [facility] SODIUM 500 MG INJECTION J2250 YAZMIN ARCE [address] [place] [address] MIDAZOLAM [facility] HCL PER 1 MG URINE 83506 YAZMIN ARCE [address] [place] [address] MEDICAL TEST CENTER CENTER VISUAL COLOR CMPRSN METHS ANTIBODY 02006 YAZMIN ARCE SCREEN [address] [place] [address] RBC EACH [facility] SERUM TECHNIQUE BLOOD 46801 YAZMIN ARCE TYPING [address] [place] [address] SEROLOGIC CENTER CENTER ABO ANESTHESI 89110 YAZMIN Nino [address] [place] [address] TIF INTRAPERI CENTER TONEAL INC LOWER ABD W/LAPS NOS VAGINAL 82132 YAZMIN MORALES LESIA HYSTERECT 5 ANNA [facility] W/TOT/PRT HOSP L VAGINECTO MY BLOOD 38967 YAZMIN ARCE TYPING [address] [place] [address] SEROLOGIC [facility] RH (D) THER 62443 YAZMIN ARCE PROPH/DX [address] [place] [address] NJX EA CENTER [facility] SEQL IV PUSH SBST/DRUG FAC INJECTION J2710 YAZMIN ARCE [address] [place] [address] NEOSTIGMI [facility] NE METHYLSUL FATE UP TO 0.5 MG INJECTION J3010 YAZMIN ARCE FENTANYL [address] [place] [address] CITRATE [facility] 0.1 MG INJECTION J1100 YAZMIN ARCE [address] [place] [address] DEXAMETHO [facility] SONE SODIUM PHOSPHATE 1 MG INJECTION J1170 YAZMIN ARCE [address] [place] [address] HYDROMORP [facility] JAJA UP TO 4 MG RINGERS J7120 YAZMIN ARCE LACTATE [address] [place] [address] INFUSION [facility] UP TO 1000 CC THER 71721 YAZMIN ARCE PROPH/DX [address] [place] [address] NJX IV CENTER CENTER PUSH SINGLE/1S T SBST/DRUG VAGINAL 51401 YAZMIN ARCE HYSTERECT [address] [place] [address] ANNA [facility] UTERUS 250 GM/< HOSPITAL G0378 YAZMIN ARCE OBSERVATI [address] [place] [address] ON [facility] [place] H[place] [address] YAZMIN CAMPUZANO LAR SURG 5 PATHOLOGY [facility] GROSS&[place] IN[place] [address] YAZMIN MCCABE CADENA JOINT 5 ARTHRGRPH [facility] Y&/ANES/S [place]P TEROID W/[place] [address] YAZMIN ARCE TRANSVAGI [address] [place] [address] [place] [address] YAZMIN ARCE THYROID [address] [place] [address] STIMULATI [facility] NG HORMONE TSH COLLECTIO 79124 YAZMIN Salazar VENOUS 5 [facility] BLOOD CENTER CENTER VENIPUNCT URE COLLECTIO 58976 YAZMIN ARCE N VENOUS 5 [facility] BLOOD CENTER CENTER VENIPUNCT URE LIPID 37977 YAZMIN ARCE PANEL 5 [facility] CENTER COMPREHEN 36111 YAZMIN ARCE SIVE 5 [facility] METABOLIC CENTER CENTER PANEL URNLS DIP 13444 YAZMIN ARCE 5 MEDICAL MEDICAL STICK/TAB CENTER CENTER LET [place] [address] YAZMIN ARCE THYROID 5 [facility] MEDICAL STIMULATI CENTER CENTER NG HORMONE TSH BLOOD 02024 YAZMIN ARCE COUNT 5 [facility] COMPLETE CENTER CENTER AUTO&AUTO DIFRNTL WBC 25 37942 YAZMIN ARCE HYDROXY 5 [facility] MEDICAL INCLUDES CENTER CENTER FRACTIONS IF PERFORMED THERAPEUT 99030 [place] MARIE IC PX 1/> 5 [place] [facility] PHYSICAL EACH 15 THERA MIN EXERCISES APPL 59634 [facility] MODALITY 5 [place] CAM 1/> AREAS PHYSICAL ELEC THERA STIMJ UNATTENDE D APPL 33480 [facility] MODALITY 5 [place] CAM 1/> AREAS PHYSICAL ELEC THERA STIMJ UNATTENDE D THERAPEUT 63399 [facility] IC PX 1/> 5 [place] [facility] PHYSICAL EACH 15 THERA MIN EXERCISES THERAPEUT 22158 [place] MARIE IC PX 1/> 5 [place] [facility] PHYSICAL EACH 15 THERA MIN EXERCISES E-STIM G0283 [facility]IE 1/> AREAS 5 [place] [facility] THAN PHYSICAL WND CARE THERA PART TX PLAN E-STIM G0283 [facility]IE 1/> AREAS 5 [place] [facility] THAN PHYSICAL WND CARE THERA PART TX PLAN MANUAL 54822 ER[place] MARIE THERAPY 5 [place] [facility] TQS 1/> PHYSICAL REGIONS THERA EACH 15 MINUTES THERAPEUT 49808 [facility] IC PX 1/> 5 [place] [facility] PHYSICAL EACH 15 THERA MIN EXERCISES THERAPEUT 75345 [facility] IC PX 1/> 5 [place] [facility] PHYSICAL EACH 15 THERA MIN EXERCISES PHYSICAL 73216 [place] MARIE THERAPY 5 [place] CAM EVALUATIO PHYSICAL N THERA MANUAL 69973 ER[place] MARIE THERAPY 5 [place] CAM TQS 1/> PHYSICAL REGIONS THERA EACH 15 MINUTES E-STIM G0283 ERICK[place] MARIE 1/> AREAS 5 [place] CAM OTH THAN PHYSICAL WND CARE THERA PART TX PLAN MRI 90276 YAZMIN ARCE SPINAL 5 [facility] MEDICAL CANAL CENTER CENTER LUMBAR W/O CONTRAST MATERIAL INJECTION J1885 YAZMIN PORTILLO 5 [facility] KETOROLAC CENTER INC TROMETHAM INE PER 15 MG RADEX HIP 20620 YAZMIN ADAMES 5 [facility] UNILATERA RADIOLOGY L PLLC COMPLETE MINIMUM 2 VIEWS RADEX 49020 YAZMIN ARCE SPINE 5 [facility] LUMBSCRL [facility] COMPL W/BENDING VIEWS MIN 6 RADEX 06764 YAZMIN ADAMES SPINE 5 [facility] LUMBOSACR RADIOLOGY AL PLLC MINIMUM 4 VIEWS CUL BACT 81078 YAZMIN ARCE XCPT 4 [facility] URINE CENTER CENTER BLOOD/STO OL AEROBIC ISOL OPHTH 27502 HALEY DE LEON, MEDICAL 0 ABHI Blair XM&EVAL COMPRHNSV ESTAB PT 1/> DETERMINA 19719 HALEY DE LEON, TION 0 ABHI Blair REFRACTIV E STATE RADEX 96837 YAZMIN ADAMES, HAND 9 ADDY A MINIMUM 3 RADIOLOGY VIEWS [facility] 25896 Pedrito GARCIA DISCHARGE 8 PHYS [facility]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 [place] T 30 [place] MIN/< CLINIC SBSQ 93664 Pedrito GARCIA [facility] 8 PHYS [facility] D CARE/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 [address] [place] [address] DIAGNOSTI RAMAKRISH ABDOMEN 8 C IMAGING Nilson CANTRELL W/CONTRAS T ASSOCIATE MATERIAL S CT PELVIS 31988 DIAGNOSTI RAMAKRISH 8 C IMAGING Nilson CANTRELL W/CONTRAS T ASSOCIATE MATERIAL S Encounters Encounter Start End Date Code Location Performer Type Date OFFICE 57283 [facility] OUTPATIEN 7 7 PHYSICIAN T VISIT S GROUP 25 MINUTES [facility]ID - 7 7 [facility] INC T OFFICE 44744 [facility] OUT[facility] 7 7 PHYSICIAN T VISIT S GROUP 15 MINUTES HOSPITAL INGRID - 7 7 [facility] OUTPATIEN INC T OFFICE 00934 [facility] OUT[facility] 7 7 PHYSICIAN T NEW 45 S GROUP MINUTES INITIAL 95878 [facility] PREVENTIV 7 7 PHYSICIAN E S GROUP MEDICINE NEW PATIENT 40-64YRS EMERGENCY 76666 INGRID 7 7 [facility] DEPARTMEN INC T VISIT MODERATE SEVERITY HOSPITAL INGRID - 7 7 [facility]PATIEN [facility] T OFFICE 03884 [facility] OUTPATIEN 7 7 PHYSICIAN T NEW 10 S GROUP MINUTES EMERGENCY 99863 TAISHA CASTRO DEPT 7 7 PHYSICIAN VISIT S, PLLC HIGH SEVERITY& THREAT [facility] INGRID - 7 7 [facility] OUTPATIEN [facility] YAZMIN - ALEKSANDRA 7 7 MEDICAL CENTER OFFICE 26285 YAZMIN BOLDEN OUTPATIEN 7 7 T VISIT CONGREGATIONAL 10 [facility] YAZMIN - 7 7 MEDICAL OUTPATIEN CENTER T OFFICE 44190 YAZMIN NATH OUTPATIEN 7 7 MEDICAL T VISIT CENTER 15 INC MINUTES OFFICE 04049 YAZMIN CADENA OUTPATIEN 6 6 T VISIT CONGREGATIONAL 10 [facility] YAZMIN - 6 6 MEDICAL OUTPATIEN CENTER [facility] YAZMIN - OTHER 6 6 MEDICAL CENTER OFFICE 69091 [place] CADENA OUTPATIEN 6 6 T VISIT CONGREGATIONAL 10 HOSP MINUTES [facility] [place] - 6 6 MEDICAL OUTPATIEN CENTER T OFFICE 03849 [place] OUTPATIEN 6 6 MEDICAL T VISIT CENTER 10 MINUTES OFFICE 64848 YAZMIN ESTELLE CADENA OUTPATIEN 6 6 T VISIT CONGREGATIONAL 25 HOSP MINUTES [facility] [place] - 6 6 MEDICAL OUTPATIEN CENTER T OFFICE 89125 [place] OUT[facility] 6 6 MEDICAL T VISIT CENTER 10 MINUTES [facility] [place] - 6 6 MEDICAL OUTPATIEN CENTER T OFFICE 54306 YAZMIN ESTELLE CADENA OUTPATIEN 6 6 T VISIT CONGREGATIONAL 15 HOSP MINUTES OFFICE 58067 YAZMIN OUTPATIEN 6 6 MEDICAL T VISIT CENTER 10 MINUTES [facility] [place] - 6 6 MED[facility] OUTPATIEN CENTER T OFFICE 67688 YAZMIN MCCABE CADENA OUTPATIEN 6 6 T VISIT CONGREGATIONAL 15 HOSP MINUTES OFFICE 68938 YAZMIN ROBERTSOME OUTPATIEN 6 6 JAM T VISIT CONGREGATIONAL 25 HOSP MINUTES OFFICE 51268 YAZMIN MCCABE CADENA OUTPATIEN 6 6 T VISIT CONGREGATIONAL 15 HOSP MINUTES OFFICE 04173 YAZMIN OUTPATIEN 6 6 MEDICAL T VISIT CENTER 10 MINUTES [facility] [place] - 6 6 MEDICAL OUTPATIEN CENTER T OFFICE 91634 [facility]EN[facility] OUTPATIEN 6 6 MEDICAL T VISIT CENTER 10 MINUTES OFFICE 28785 YAZMIN MCCABE CADENA OUTPATIEN 6 6 T VISIT CONGREGATIONAL 15 HOSP MINUTES [facility] [place] [facility] 6 [facility] OUTPATIEN CENTER T OFFICE 96413 YAZMIN MCCABE CADENA OUTPATIEN 6 6 T VISIT CONGREGATIONAL 15 HOSP MINUTES [facility] [place] - 6 6 MEDICAL OUTPATIEN CENTER T OFFICE 57647 [place] OUTPATIEN 6 6 MEDICAL T VISIT CENTER 10 MINUTES OFFICE 57567 YAZMIN ESTELLE CADENA OUTPATIEN 6 6 T VISIT CONGREGATIONAL 15 HOSP MINUTES OFFICE 42439 [place] [facility] 6 6 MEDICAL T VISIT CENTER 10 MINUTES OFFICE 36363 YAZMIN ESTELLE CADENA OUTPATIEN 6 6 T VISIT CONGREGATIONAL 25 HOSP MINUTES [facility] [place] - 6 6 MED[facility] OUTPATIEN CENTER T OFFICE 71009 [place] [facility] 6 6 MEDICAL T VISIT CENTER 10 MINUTES OFFICE 74225 BETTYE FREDA EWN FREDA OUTPATIEN 6 6 T VISIT 15 MINUTES [facility] [place] - 6 6 MEDICAL OUTPATIEN CENTER T OFFICE 79829 YAZMIN ESTELLE CADENA OUTPATIEN 5 5 T VISIT CONGREGATIONAL 25 HOSP MINUTES [facility] [place] - 5 5 MEDICAL OUTPATIEN CENTER T OFFICE 20674 [place] OUTPATIEN 5 5 MEDICAL T VISIT CENTER 10 MINUTES [facility] [place] - 5 5 MEDICAL OUTPATIEN CENTER T OFFICE 83839 [place] PORTILLO OUTPATIEN 5 5 MEDICAL JAM T VISIT CENTER 25 INC MINUTES OFFICE 50496 [place] OUTPATIEN 5 5 MEDICAL T VISIT CENTER 10 MINUTES [facility] [place] - 5 5 MED[facility] OUTPATIEN CENTER [facility] [place] - [facility] 5 [facility] OUTPATIEN CENTER T OFFICE 74147 [place] OUTPATIEN 5 5 MEDICAL T VISIT CENTER 10 MINUTES OFFICE 93663 [place] OUTPATIEN 5 5 MEDICAL JAM T VISIT CENTER 15 INC MINUTES OFFICE 67329 [place] SHEELA RAZ OUTPATIEN 5 5 T NEW 45 CONGREGATIONAL MINUTES HOSP [facility] [place] - 5 5 MEDICAL OUTPATIEN CENTER T OFFICE 63884 FÉLIXGABY MCCABE CADENA OUTPATIEN 5 5 T VISIT CONGREGATIONAL 25 HOSP MINUTES OFFICE 54995 [place] OUTPATIEN 5 5 MEDICAL T VISIT CENTER 10 MINUTES [facility] [place] - 5 5 MEDICAL OUTPATIEN CENTER T OFFICE 42466 [place] OUTPATIEN 5 5 MEDICAL T VISIT CENTER 10 MINUTES OFFICE 61812 YAZMIN MCCABE CAD[place] OUTPATIEN 5 5 T VISIT CONGREGATIONAL 25 HOSP MINUTES [facility] [place] - 5 5 MEDICAL OUTPATIEN CENTER T OFFICE 58743 FÉLIXGABY RAZABS [place]ES[place] OUTPATIEN 5 5 T VISIT CONGREGATIONAL 25 HOSP MINUTES [facility] [place] - 5 5 MEDICAL OUTPATIEN CENTER T OFFICE 97306 [place] [facility] 5 5 MEDICAL T VISIT CENTER 10 MINUTES [facility] [place] - 5 5 MEDICAL OUTPATIEN CENTER T OFFICE 49816 [place] [facility]PATIEN 5 5 MEDICAL T VISIT CENTER 10 MINUTES [facility] [place] - OTHER 5 5 MEDICAL CENTER OFFICE 77091 YAZMIN MORALES [place] OUTPATIEN 5 5 T NEW 20 CONGREGATIONAL MINUTES HOSP [facility] [place] - OTHER 5 5 MEDICAL CENTER OFFICE 35403 FÉLIXGABY PORTILLO OUTPATIEN 5 5 MEDICAL JAM T VISIT CENTER 15 INC MINUTES OFFICE 29556 FÉLIXGABY MCCABE CADENA OUTPATIEN 5 5 T NEW 45 CONGREGATIONAL MINUTES HOSP OFFICE 13738 YAZMIN NATH OUTPATIEN 5 5 MEDICAL JAM T VISIT CENTER 15 INC MINUTES OFFICE 59840 YAZMIN FITZGERALD OUTPATIEN 5 5 JAM T VISIT CONGREGATIONAL 15 HOSP [facility] YAZMIN - 5 5 MEDICAL OUTPATIEN CENTER T OFFICE 67523 YAZMIN FITZGERALD OUTPATIEN 5 5 JAM T NEW 30 CONGREGATIONAL MINUTES [facility] YAZMIN - 5 5 MEDICAL OUTPATIEN CENTER [facility] [place] - OTHER 4 4 [facility] CENTER EMERGENCY 34970 CAITIE RUIZ, 0 0 EMERGENCY [facility] T VISIT HIGH/URGE ASSOCIATE NT S SEVERITY OFFICE 62673 WILIAN CEDENO OUTPATIEN 8 8 CHANDRA ARTIS, T VISIT SILVIANO SILVIANO 25 MINUTES
--- OUTSIDE RECORDS SUMMARY | 2017-02-23 17:27 | External Medical Summary Rpt ---
Author Author , LORNA ROTHMAN Address Unknown Phone [email or web address] Care Team Providers Care Precision Honer Name Role Phone SHEELA RAZ, AHMED RAZ Unavailable Unavailable WEN FREDA, WEN FREDA Unavailable Unavailable BEINEKE, BEINEKE Unavailable Unavailable DAMICO, DAMICO Unavailable Unavailable MARIE CAM, Unavailable Unavailable MARIE CAM CHIPPS JABIER & Unavailable Unavailable DUBILIER, CHIPPS JABIER & DUBILIER JUAN C, Unavailable Unavailable SILVIANO, JUAN C, SILVIANO [facility] Unavailable Unavailable [facility] CRIS, CRIS Unavailable Unavailable [facility] Unavailable Unavailable PHYSICAL THERA, [facility]ERA ZACKARY RUIZ, Unavailable Unavailable ZACKARY RUIZ FOGG Unavailable Unavailable SNEHA HOOVER Unavailable Unavailable Pedrito MCPHERSON, VIDA, Unavailable Unavailable K KENTRELL BAILEY Unavailable Unavailable HARPEL, HARPEL Unavailable Unavailable [facility] Un[facility] Un[facility], [facility] Unavailable [facility]available HOSPITAL P, [facility] ANDREZ STROUD, MAGUIRE Unavailable Unavailable TIF PRO, PRO Unavailable Unavailable PRO, PRO Unavailable Unavailable [facility], Unavailable Unavailable [facility] MORALES LESIA, MORALES LESIA Unavailable Unavailable CASTRO, CASTRO Unavailable Unavailable ZACARIAS PRITCHARD ZACARIAS Unavailable Unavailable ADDY CAICEDO, Unavailable Unavailable ADDY ADAMES [facility] Unavailable Unavailable [facility], [facility] ESTELLE CADENA, ESTELLE CADENA Unavailable Unavailable VIJAYA LILLY JR JR Unavailable Unavailable ABHI DE LEON, Unavailable Unavailable ABHI DE LEON MULLINS Unavailable Unavailable JIN PORTILLO, PORTILLO Unavailable Unavailable PORTILLO JAM, PORTILLO Unavailable Unavailable JAM PAVEZ, PAVEZ Unavailable Unavailable ALEX BENTON, Unavailable Unavailable ALEX BENTON [facility] Unavailable Unavailable [place], [facility] Un[facility] Un[facility] Un[facility], [facility] Un[facility], [facility] Nilson MÁRQUEZ, Unavailable Unavailable Nilson MÁRQUEZ [facility], Unavailable Unavailable [facility], Unavailable Unavailable [facility] Unavailable Unavailable [facility], [facility] AMILCAR JAM, AMILCAR Unavailable Unavailable LILY [facility], Unavailable Unavailable [facility] TATIANNA FIERRO, TATIANNA LAR Unavailable Unavailable Purpose Continuity of Care Document - 11-10-2007 through 2016 Problems Code Diagnosis DOS Provider Status [id number] MYOPIA 01-26-2017 PRO BILATERAL N6012 DIFFUSE 12-28-2016 [facility] CYSTIC [facility] MASTOPATHY INC OF LEFT BREAST N951 MENOPAUSAL 12-28-2016 [facility] CLIMACTERIC GROUP STATES R6882 DECREASED 12-28-2016 [facility] LIBIDO PHYSICIANS GROUP R928 OTH ABNORM 12-28-2016 [place] [facility] INCONCLUSIV IMAGING ASS E FIND ON DX IMAG BREAST N3644 MUSCULAR 12-25-2016 [facility] DISORDERS PHYSICIANS OF URETHRA GROUP G62785 ENCOUNTER 12-04-2016 [facility] J2EE SOFTWARE ENGINEER EXAM [facility] GENERAL RTN INC W/O ABNORMAL FIND Z1231 ENCOUNTER 12-04-2016 [facility] MEDICAL MAMMO MALIG IMAGING ASS NEOPLASM BREAST I10 ESSENTIAL 11-30-2016 [facility] PRIMARY PHYSICIANS HYPERTENSIO GROUP N N393 STRESS 11-30-2016 [facility] INCONTINENC PHYSICIANS E FEMALE GROUP MALE N819 FEMALE 11-30-2016 [facility] GENITAL PHYSICIANS PROLAPSE GROUP UNSPECIFIED N9412 DEEP 11-30-2016 [facility] DYSPAREUNIA PHYSICIANS GROUP N952 POSTMENOPAU 11-30-2016 [facility] NICHOLAS PHYSICIANS ATROPHIC GROUP VAGINITIS R4189 OTH SX & 11-30-2016 [facility] SIGNS INVLV PHYSICIANS COGNITIVE GROUP FUNC & AWARENESS R569 UNSPECIFIED 11-30-2016 [facility] PHYSICIANS CONVULSIONS GROUP R9089 OTH 11-30-2016 [facility] ABNORMAL PHYSICIANS FIND ON DX GROUP IMAGING CNTRL NERV SYS G56750 ENCOUNTER 11-30-2016 [facility] J2EE SOFTWARE ENGINEER EXAM PHYSICIANS GENERAL RTN GROUP W/ABNORMAL FIND Z1212 ENCOUNTER 11-30-2016 [facility] SCREENING PHYSICIANS MALIGNANT GROUP NEOPLASM RECTUM R220 LOCALIZED 11-12-2016 [facility] MASS AND INC LUMP HEAD R51 HEADACHE 11-12-2016 [facility] A1700ZN UNSPECIFIED 11-12-2016 [place] INJURY OF MEDICAL HEAD IMAGING ASS INITIAL ENCOUNTER Z720 TOBACCO USE 11-12-2016 [facility] I159 SECONDARY 11-09-2016 [facility] HYPERTENSIO PHYSICIANS N GROUP UNSPECIFIED R232 FLUSHING 11-09-2016 [facility] R531 WEAKNESS 11-09-2016 [facility] P09399 SLEEP 11-09-2016 [facility] DEPRIVATION PHYSICIANS GROUP K8010 CALCULUS GB 10-06-2016 [...] ASS K8000 CALCULUS GB 10-05-2016 [facility] W/ACUTE [facility] P W/O OBSTRUCTION D57602 ENCOUNTER 10-05-2016 [place] FOR OTHER MEDICAL PREPROCEDUR IMAGING ASS AL EXAMINATION M899 DISORDER OF 08-05-2016 [facility] UNSPECIFIED PLLC R109 UNSPECIFIED 07-23-2016 [facility] G8921 CHRONIC 07-22-2016 [facility] PAIN DUE TO [facility]MA [facility] T85876 PAIN IN 07-22-2016 [facility] LEFT HIP [facility] M5136 OTH 07-22-2016 [facility] INTERVERTEB [facility] RAL DISC HOSP DEGEN LUMBAR REGION B97664 PAIN IN 07-22-2016 [facility] LEFT LEG [facility] G629 POLYNEUROPA 06-22-2016 [facility] THY [facility] UNSPECIFIED HOSP M2140 FLAT FOOT 05-20-2016 [facility] UNSPECIFIED FOOT H41855 POSTERIOR 05-20-2016 [facility] TIBIAL MEDICAL TENDINITIS CENTER UNSPECIFIED LEG R197 DIARRHEA 05-20-2016 [facility] G5600 CARPAL 04-17-2016 [facility] SYNDROME UNSPECIFIED UPPER LIMB G5603 CARPAL 04-16-2016 [facility] T[facility] SYNDROME HOSP BILATERAL UPPER LIMBS M461 SACROILIITI 04-16-2016 [facility] S NOT [facility] ELSEWHERE HOSP CLASSIFIED M1612 UNILATERAL 04-15-2016 [facility] PRIMARY [facility]ICAL OSTEOARTHRI CENTER TIS LEFT HIP M1712 UNILATERAL 04-15-2016 [facility] OSTEOARTHRI PLLC TIS LEFT KNEE C03008 PAIN IN 04-15-2016 [facility] UNSPECIFIED RADIOLOGY ANKLE PLLC M8580 OTH SPEC 04-15-2016 [facility] STRUCTURE UNS SITE M542 CERVICALGIA 02-12-2016 [facility] M5416 RADICULOPAT 02-10-2016 Y[facility] EDDY LUMBAR [facility] M545 LOW BACK 01-08-2016 [facility] PAIN [facility] G8929 OTHER 11-13-2015 [facility] B23509 PAIN IN 11-13-2015 [facility] X48571 PAIN IN 11-13-2015 [facility]IGH [facility] Z5181 ENCOUNTER 11-13-2015 [facility] THERAPEUTIC CENTER DRUG LEVEL MONITORING T03975 GROUP HOME 11-13-2015 Y[facility]MIN CURRENT USE MEDICAL OF OPIATE CENTER ANALGESIC T1490 INJURY 06-14-2015 [facility] UNSPECIFIED MEDICAL [place] E27564 OTHER LONG 06-14-2015 YAZMIN [facility] MEDICAL CURRENT CENTER DRUG THERAPY M5417 RADICULOPAT 05-21-2015 [facility]MIN EDDY [facility] LUMBOSACRAL HOSP REGION M532X8 SPINAL 05-09-2015 [facility] INSTABILITI [facility] ES SAC HOSP SACROCOCCYG EAL REGION Z9889 OTHER 04-17-2015 [facility] SPECIFIED [facility] POSTPROCEDU HOSP RAL STATES N800 ENDOMETRIOS 04-16-2015 [facility] IS OF [facility] UTERUS HOSP N812 INCOMPLETE 04-16-2015 Y[facility]MIN UTEROVAGINA [facility] L PROLAPSE HOSP N814 UTEROVAGINA 04-16-2015 YAZMIN L PROLAPSE MEDICAL UNSPECIFIED CENTER N938 OTHER SPEC 04-16-2015 [facility] ABNORMAL [facility] UTERINE & HOSP VAGINAL BLEEDING 78455 DEGEN 04-10-2015 Y[facility] LUMBAR/LUMB [facility] OSACRAL HOSP INTERVERTEB RAL DISC 7242 LUMBAGO 04-10-2015 [facility] 7244 THORACIC/MANDI 04-10-2015 [facility] MBOSACRAL [facility] NEURITIS/RA HOSP DICULITIS UNSPEC 7246 DISORDERS 04-10-2015 [facility] OF SACRUM [facility] 7202 SACROILIITI 04-04-2015 Y[facility] S NOT [facility] ELSEWHERE HOSP CLASSIFIED 6264 IRREGULAR 03-28-2015 [facility] MENSTRUAL [facility] CYCLE [facility]OSP 6268 OTH D/O 03-28-2015 [facility] MENSTRUATIO [facility] N&OTH ABN HOSP BLEED FE GNT TRACT 71248 DISORDER OF 02-18-2015 [facility] UNSPECIFIED 40997 HYPERTENSIO 02-18-2015 YAZMIN Salazar [facility] V5869 LONG-TERM 02-18-2015 Y[facility] (CURRENT) MEDICAL USE OF [place] OTHER MEDICATIONS V5883 ENCOUNTER 02-18-2015 [facility] THERAPEUTIC [place] DRUG MONITORING V700 ROUTINE 02-18-2015 [facility] EXAM@HEALTH CARE FACL 14669 PAIN IN 02-11-2015 [facility] JOINT [facility] PELVIC HOSP REGION AND THIGH 7197 DIFFICULTY 02-11-2015 [facility] IN WALKING [place] PHYSICAL THERA 7243 SCIATICA 02-11-2015 [facility] PHYSICAL THERA 4019 UNSPECIFIED 01-14-2015 [facility] HYPERTENSIO CENTER INC N 7213 LUMBOSACRAL 01-14-2015 [facility] SPONDYLOSIS [place] WITHOUT MYELOPATHY V725 RADIOLOGICA 01-14-2015 Y[facility]MIN Ontiveros RADIOLOGY EXAM[facility] NEC 7245 UNSPECIFIED 12-27-2014 Y[facility] BACKACHE RADIOLOGY PLL 6110 INFLAMMATOR 05-30-2014 YAZMIN Y DISEASE [facility] [place] 18314 UNSPECIFIED 10-17-2009 [facility] V720 EXAMINATION 10-10-2009 [facility], OF EYES ABHI G AND VISION 9594 INJURY 02-05-2009 Y[facility] OTHER AND RADIOLOGY UNSPECIFIED PLL HAND EXCEPT FINGER 6202 OTHER AND 01-10-2008 [facility] UNSPECIFIED PHYS [facility] 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 [facility] 6262 EXCESSIVE 01-10-2008 [facility] OR FREQUENT PHYS [facility]CS MECHANICAL MAINTENANCE FOREMAN [facility] 32904 ABDOMINAL 01-08-2008 DIAGNOSTIC PAIN RIGHT [facility] QUADRANT 3671 MYOPIA 11-10-2007 COUCH-COM PTON, SILVIANO 23510 UNSPECIFIED 11-10-2007 COUCH-COM PTON, ASTIGMATISM SILVIANO Medications [...] 07 08 30 30 00 HO Ac DC 00 -1 -0 .0 00 ME ti [...] 00 9- 8- 00 06 TO ve DC 51 20 20 08 WN IL 90 [...] 06 07 30 30 00 HO Ac DC 00 -1 -1 .0 00 ME ti [...] 00 1- 3- 00 06 TO ve DC 51 20 20 08 WN IL 90 [...] 00 1- 6- 00 06 TO ve DC 51 20 20 08 WN IL 90 [...] 05 05 30 30 00 HO Ac DC 00 -0 -2 .0 00 ME ti [...] NO 00 4- 9- 00 01 ve DC 51 20 20 17 AI IL 80 [...] 04 05 60 30 00 RI Ac DC 18 -1 -0 .0 00 TE ti [...] 1 90 PH CE AR TA MA ND CY NO PH #3 EN 93 8 5- 32 5 LI 68 03 04 30 30 00 RI Ac SI 18 -1 -1 .0 00 TE ti NO 00 9- 4- 00 01 ve DC 51 20 20 17 AI IL 80 17 17 54 D -H [address] AR Z MA 10 CY -1 2. #3 5 93 MG 8 TA B BU 00 03 04 60 30 00 RI Ac DC 18 -1 -0 .0 00 TE ti [...] 00 4- 4- 00 00 EY ve DC 51 20 20 84 IL 80 17 [...] 02 03 60 30 00 VA Ac DC 09 -1 -1 .0 00 LL ti [...] 00 3- 7- 00 00 EY ve DC 51 20 20 84 IL 80 17 [...] 01 02 60 30 00 VA Ac DC 09 -1 -0 .0 00 LL ti [...] 1 77 SC CE OU TA NT ND NO PH PH AR MA 7. CY [...] 00 3- 0- 00 00 EY ve DC 51 20 20 84 [place] 80 16 [...] 12 01 60 30 00 VA Ac DC 09 -0 -0 .0 00 LL ti [...] 1 98 SC CE OU TA NT ND NO PH PH AR MA 7. CY [...] Procedure DOS Code Location Performer Comment FITTING 80571 [facility] SPECTACLE 7 S XCPT APHAKIA MONOFOCAL OPHTH 10605 [facility] 7 XM&EVAL COMPRE NEW PT 1/> VST THERAPEUT 20146 [facility] HAR[facility] IC 7 PHYSICIAN PROPHYLAC S GROUP TIC/DX INJECTION SUBQ/IM DIAGNOSTI G0206 [facility] 7 MEDICAL MAMMOGRAP IMAGING HY INCL ASS CAD WHEN PERF; UNI DIAGNOSTI 87948 [facility] C 7 [facility] MAMMOGRAP INC INC HY COMPUTER- AIDED DETCJ UNI INFO 7025F [facility] 7 MEDICAL ANALYSIS IMAGING ABNORMAL ASS INTERPRAT E SCREENING G0202 [place] [address] MEDICAL MAMMOGRAP IMAGING HY DAYNAARA ASS INCL CAD WHEN PERFORMD SCREENING 14359 [facility] QU[facility]O 7 MEM H[facility] MAMMOGRAP INC INC HY BI 2-VIEW BREAST INC CAD MAMMO 3340F [facility] ASSESSMEN 7 MEDICAL T CAT IMAGING INCOMP ASS ADDTNL IMAGE DOCD CULTURE 03427 [facility] HARPEL CHLAMYDIA 7 PHYSICIAN ANY S GROUP SOURCE IADNA 24232 [facility] NEISSERIA 7 PHYSICIAN S GROUP GONORRHOE AE DIRECT PROBE TQ BLOOD 46805 [facility] OCCULT 7 PHYSICIAN PHYSICIAN PEROXIDAS S GROUP S GROUP E ACTV QUAL FECES 1-3 SPEC URNLS DIP 82219 [facility] 7 [facility] STICK/TAB INC INC LET REAGENT AUTO MICROSCOP Y COMPREHEN 22411 [facility] SIVE 7 [facility] METABOLIC INC INC PANEL FINAL G9638 [place] [facility] REPOR[facility] 7 MEDICAL W/O DOC IMAGING 1/MORE ASS DOSE REDUCTION TECH COLLECTIO 74592 [facility] N VENOUS 7 [facility] H[facility] BLOOD INC INC VENIPUNCT URE BLOOD 73201 [facility] COUNT 7 MEM H[facility] MEM HOSP COMPLETE INC INC AUTO&[place] [address] [place] [facility] HEAD/BRAI 7 MEDICAL N W/O IMAGING CONTRAST ASS [facility] G0378 [facility] OBSERVATI 7 MEM HOS[facility]OS[facility] ON INC INC SERVICE PER HOUR ANES 08869 [facility] INTRAPERI 7 ANESTH TONEAL OF THE UPPER BLUE ABDOMEN W/LAPS NOS BLOOD 60347 [facility] COUNT 7 MEM H[facility] MEM HOS[facility] COMPLETE INC INC AUTO&AUTO DIFRNTL WBC LEVEL III 67777 CHIPPS PICKLESIM SURG 7 JABIER & ER JR PATHOLOGY DUBILIER GROSS&JACE ROSCOPIC EXAM COLLECTIO 50422 [facility] N VENOUS 7 MEM HOSP [facility] BLOOD INC INC VENIPUNCT URE LAPAROSCO 29884 [facility] PY SURG 7 [facility] [place] [address] [facility] ABDOMINAL 7 MEDICAL REAL IMAGING TIME ASS W/IMAGE LIMITED FINAL G9551 [facility] REPR ABD 7 MEDICAL IMAG STS IMAGING W/O ASS INCIDNT FND LES NTD: ECG 81130 [facility] LILLY JR ROUTINE 7 [facility] W/LEAST P 12 LDS I&R ONLY URNLS DIP 14474 [facility] QUINTERO 7 [facility] STICK/TAB INC INC LET REAGENT AUTO MICROSCOP Y COMPREHEN 20503 [facility] SIVE 7 [facility] [place] [address] [facility] AMYLASE 7 [facility] INC INC BLOOD 34717 [facility] COUNT 7 MEM HOSP [facility] COMPLETE INC INC AUTO&AUTO DIFRNTL WBC RADIOLOGI 30454 [facility] EXAM 7 MEDICAL CHEST 2 IMAGING VIEWS ASS FRONTAL&L ATERAL THERAPEUT 01746 [facility] IC 7 [facility] INJECTION INC INC IV PUSH EACH [facility] G0378 [facility] OBSERVATI 7 [facility] ON INC INC SERVICE PER HOUR THER 13876 [facility] PROPH/DX 7 MEM H[facility] NJX EA INC INC SEQL IV PUSH SBST/[place] [address] [facility] ABDOMEN & 7 [facility] PELVIS INC INC W/O CONTRAST MATERIAL THER 11580 [facility] PROPH/DX 7 [facility] H[facility] NJX IV INC INC PUSH SINGLE/1S T SBST/DRUG ECG 23145 [facility] ROUTINE 7 [facility] ECG INC INC W/LEAST 12 LDS TRCG ONLY W/O I&[place] [address] [facility] QU[facility] LIPASE 7 MEM HOSP [facility] INC INC DXA BONE 15196 YAZMIN PFEIFFER DENSITY 7 STUDY 1/> RADIOLOGY [facility] [place] [address] YAZMIN ARCE AMYLASE 7 [facility] COMPREHEN 92948 YAZMIN ARCE SIVE 7 [facility] METABOLIC [place] [facility] PANEL COLLECTIO 26120 YAZMIN ARCE N VENOUS 7 [facility] BLOOD [facility] VENIPUNCT URE URNLS DIP 97903 YAZMIN ARCE 7 [facility] STICK/TAB CENTER CENTER LET REAGENT AUTO MICROSCOP Y LIPID 84961 YAZMIN ARCE PANEL 7 [facility] BLOOD 60869 YAZMIN ARCE COUNT 7 [facility] COMPLETE [facility] AUTO&[place] [address] YAZMIN ARCE LIPASE [address] [place] [address] [place] [address] YAZMIN ARCE ABDOMINAL 6 [facility] REAL [facility] TIME W/IMAGE DOCUMENTA TION OVA&MABEL 24852 YAZMIN ARCE ITES 6 [facility] DIRECT [facility] SMEARS CONCENTRA TION & ID IAADIADOO 99395 YAZMIN ARCE NOT 6 [facility] OTHERWISE [facility] SPECIFIED INF AGENT 61132 YAZMIN ARCE DET 6 [facility] NUCLEIC [facility] ACID CLOSTRIDI UM AMP PROBE SMR PRIM 74007 YAZMIN ARCE SRC CPLX 6 [facility] SPEC [place] [facility] STAIN OVA&MABEL ITS DRUG TST G0477 YAZMIN ARCE PRESUMP;C 6 [facility] PBL BEING CENTER CENTER READ DC OPT OBV ONLY CUL BACT 40510 YAZMIN ARCE STOOL 6 [facility] AEROBIC CENTER CENTER ISOL SALMONELL A&SHIGELL WRIST L3908 RX RX HAND 6 [facility]COUNT [facility] PHARMACY EXT CONTROL COCK-UP PREFAB RADIOLOGI 55470 YAZMIN Mann 6 MEDICAL MEDICAL EXAMINATI CENTER CENTER ON KNEE 3 VIEWS RADEX HIP 02582 YAZMIN ARCE 6 [facility] UNILATERA [place] [facility] L WITH PELVIS 2-3 VIEWS RADIOLOGI 72361 [place] C 6 MEDICAL MEDICAL EXAMINATI [place] CENTER ON FEMUR MINIMUM 2 VIEWS RADEX 79455 YAZMIN ARCE ANKLE 6 [facility] COMPLETE CENTER CENTER MINIMUM 3 VIEWS DRUG TST G0477 YAZMIN ARCE PRESUMP;C 6 [facility] PBL BEING CENTER CENTER READ DC OPT OBV ONLY NERVE 82846 YAZMIN COKER RAZ CONDUCTIO 6 N STUDIES [facility] 5-6 HOSP STUDIES RADIOLOGI 70374 YAZMIN ARCE C 5 [facility] EXAMINATI [place] CENTER ON FEMUR 2 VIEWS DRUG SCR G0434 YAZMIN ARCE NOT 5 [facility] CHROMATOG CENTER CENTER RAPHIC; ANY NUMBER PT ENC THER 26449 YAZMIN ARCE PROPH/DX 5 [facility] NJX EA [facility] SEQL IV PUSH SBST/DRUG FAC POSTOP 94119 YAZMIN SHAH FOLLOW UP 5 JIN VISIT [facility] RELATED HOSP TO ORIGINAL PX INFLUENZA Q2038 YAZMIN ARCE VACC 5 [facility] SPLIT [facility] VIRUS 3 YRS & > IM FLUZONE INJECTION J2270 YAZMIN ARCE MORPHINE [address] [place] [address] MEDICAL SULFATE [facility] UP TO 10 MG IM ADM 14735 YAZMIN ARCE PRQ ID 5 [facility] SUBQ/IM CENTER CENTER NJXS 1 VACCINE INJECTION J2405 YAZMIN ARCE [address] [place] [address] ONDANSETR [place] CENTER ON HCL PER 1 MG COLLECTIO 29325 YAZMIN ARCE N VENOUS [address] [place] [address] BLOOD [facility] VENIPUNCT URE INJECTION J2270 YAZMIN ARCE MORPHINE [address] [place] [address] MEDICAL SULFATE [facility] UP TO 10 MG INJECTION J0690 YAZMIN ARCE [address] [place] [address] CEFAZOLIN CENTER [place] SODIUM 500 MG INJECTION J2250 YAZMIN ARCE [address] [place] [address] MIDAZOLAM [facility] HCL PER 1 MG URINE 97470 YAZMIN ARCE [address] [place] [address] MEDICAL TEST CENTER CENTER VISUAL COLOR CMPRSN METHS ANTIBODY 34275 YAZMIN ARCE SCREEN [address] [place] [address] RBC EACH [place] CENTER SERUM TECHNIQUE BLOOD 39453 YAZMIN ARCE TYPING [address] [place] [address] SEROLOGIC CENTER CENTER ABO ANESTHESI 28017 YAZMIN Nino [address] [place] [address] TIF INTRAPERI CENTER TONEAL INC LOWER ABD W/LAPS NOS VAGINAL 86944 YAZMIN MORALES LESIA HYSTERECT 5 ANNA [facility] W/TOT/PRT HOSP L VAGINECTO MY BLOOD 62740 Y[facility] ARCE TYPING [address] [place] [address] SEROLOGIC [place] C[facility] RH (D) THER 70147 YAZMIN ARCE PROPH/DX [address] [place] [address] NJX EA CENTER [place] SEQL IV PUSH SBST/DRUG FAC INJECTION J2710 YAZMIN ARCE [address] [place] [address] NEOSTIGMI [facility] NE METHYLSUL FATE UP TO 0.5 MG INJECTION J3010 YAZMIN ARCE FENTANYL [address] [place] [address] CITRATE [facility] 0.1 MG INJECTION J1100 YAZMIN ARCE [address] [place] [address] DEXAMETHO [facility] SONE SODIUM PHOSPHATE 1 MG INJECTION J1170 YAZMIN ARCE [address] [place] [address] HYDROMORP [facility] JAJA UP TO 4 MG RINGERS J7120 YAZMIN ARCE LACTATE [address] [place] [address] INFUSION [facility] UP TO 1000 CC THER 54914 YAZMIN ARCE PROPH/DX [address] [place] [address] NJX IV CENTER CENTER PUSH SINGLE/1S T SBST/DRUG VAGINAL 46563 YAZMIN ARCE HYSTERECT [address] [place] [address] [facility] UTERUS 250 GM/< HOSPITAL [id number] YAZMIN ARCE OBSERVATI [address] [place] [address] ON [facility] [place] [address] YAZMIN CAMPUZANO LAR SURG 5 PATHOLOGY [facility] GROSS&[place] IN[place] [address] YAZMIN MCCABE CADENA JOINT 5 ARTHRGRPH [facility] Y&/ANES/S [place]OSP TEROID W/[place] [address] YAZMIN ARCE TRANSVAGI [address] [place] [address] [place] [address] YAZMIN ARCE THYROID [address] [place] [address] STIMULATI [facility] NG HORMONE TSH COLLECTIO 41656 YAZMIN Salazar VENOUS 5 [facility] CENTER VENIPUNCT URE COLLECTIO 85515 YAZMIN ARCE N VENOUS 5 [facility] CENTER VENIPUNCT URE LIPID 07223 YAZMIN ARCE PANEL [facility] COMPREHEN 48877 YAZMIN ARCE SIVE 5 [facility] METABOL[facility] CENTER PANEL URNLS DIP 75232 YAZMIN ARCE 5 [facility] STICK/TAB CENTER CENTER [place] [address] YAZMIN ARCE THYROID 5 [facility] STIMULATI [facility] CENTER NG HORMONE TSH BLOOD 56641 YAZMIN ARCE COUNT 5 [facility] COMPLETE [facility] CENTER AUTO&AUTO DIFRNTL WBC 25 [id number] YAZMIN ARCE HYDROXY 5 [facility] MED[facility] INCLUDES [facility]ENTER CENTER FRACTIONS IF PERFORMED THERAPEUT 07371 ERICK[place] MARIE IC PX 1/> 5 [place] [facility] PHYSICAL EACH 15 THERA MIN EXERCISES APPL 33632 [facility] MODALITY 5 [place] [facility] 1/> AREAS PHYSICAL ELEC THERA STIMJ UNATTENDE D APPL 86416 [facility] MODALITY 5 [place] [facility] 1/> AREAS PHYSICAL ELEC THERA STIMJ UNATTENDE D THERAPEUT 61727 [facility] IC PX 1/> 5 [place] [facility] PHYSICAL EACH 15 THERA MIN EXERCISES THERAPEUT 66173 ER[facility] MARIE IC PX 1/> 5 [place] [facility] PHYSICAL EACH 15 THERA MIN EXERCISES E-STIM G0283 [facility] 1/> AREAS 5 [place] [facility] THAN PHYSICAL WND CARE THERA PART TX PLAN E-STIM G0283 [facility] 1/> AREAS 5 [place] [facility] TH[facility] PHYSICAL WND CARE THERA PART TX PLAN MANUAL 06716 [facility] MARIE THERAPY 5 [place] [facility] TQS 1/> PHYSICAL REGIONS THERA EACH 15 MINUTES THERAPEUT 47883 [facility] PX 1/> 5 [place] [facility] PHYSICAL EACH 15 THERA MIN EXERCISES THERAPEUT 40486 [facility] PX 1/> 5 [place] [facility] PHYSICAL EACH 15 THERA MIN EXERCISES PHYSICAL 97143 [place] MARIE THERAPY 5 [place] [facility] EVALUATIO PHYSICAL N THERA MANUAL 66610 [place] MARIE THERAPY 5 [place] [facility] TQS 1/> PHYSICAL REGIONS THERA EACH 15 MINUTES E-STIM G0283 [facility] MARIE 1/> AREAS 5 [place] [facility] THAN PHYSICAL WND CARE THERA PART TX PLAN MRI 59697 YAZMIN ARCE SPINAL 5 [facility] CENTER LUMBAR W/O CONTRAST MATERIAL INJECTION [id number] YAZMIN PORTILLO 5 [facility] [place] INE PER 15 MG RADEX HIP 56225 YAZMIN ADAMES 5 [facility] [facility] COMPLETE MINIMUM 2 VIEWS RADEX 12727 YAZMIN ARCE SPINE 5 [facility] COMPL W/BENDING VIEWS MIN 6 RADEX 81196 YAZMIN ADAMES SPINE 5 [facility] LUMBOSACR RADIOLOGY AL PLLC MINIMUM 4 VIEWS CUL BACT 68966 YAZMIN ARCE XCPT 4 [facility] URINE CENTER CENTER BLOOD/STO OL AEROBIC ISOL OPHTH 86067 HALEY DE LEON, MEDICAL 0 ABHI Blair XM&EVAL COMPRHNSV ESTAB PT 1/> DETERMINA 26298 HALEY DE LEON, TION 0 ABHI Blair REFRACTIV E STATE RADEX 77134 YAZMIN ADAMES, HAND 9 ADDY A MINIMUM 3 RADIOLOGY VIEWS [facility] 69397 Pedrito GARCIA DISCHARGE 8 PHYS SVCS D DAY 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 FOREMAN MANAGEMEN [place] T 30 [place] MIN/< CLINIC SBSQ 32066 Pedrito GARCIA [facility] 8 PHYS SVCS D CARE/DAY MECHANICAL MAINTENANCE FOREMAN [address] [place] [address] DIAGNOSTI RAMAKRISH ABDOMEN 8 C IMAGING Nilson CANTRELL W/CONTRAS T ASSOCIATE MATERIAL S CT PELVIS 93175 DIAGNOSTI RAMAKRISH 8 C IMAGING Nilson CANTRELL W/CONTRAS T ASSOCIATE MATERIAL S Encounters Encounter Start End Date Code Location Performer Type Date OFFICE 82882 [facility] OUTPATIEN 7 7 PHYSICIAN T VISIT S GROUP 25 MINUTES [facility]OSP[facility] INGRID - 7 7 [facility] INC T OFFICE 03792 [facility] OUTPATIEN 7 7 PHYSICIAN T VISIT S GROUP 15 MINUTES [facility]OSPITAL INGRID - 7 7 [facility] OUTPATIEN INC T OFFICE 28426 [facility] PAVEZ OUTPATIEN 7 7 PHYSICIAN T NEW 45 S GROUP MINUTES INITIAL 23047 [facility] PREVENTIV 7 7 PHYSICIAN E S GROUP MEDICINE NEW PATIENT [id number] EMERGENCY 85796 INGRID 7 7 [facility] DEPARTMEN INC T VISIT MODERATE SEVERITY HOSPITAL INGRID - 7 7 [facility] OUTPATIEN [facility] T OFFICE 39516 [facility] FRYMAN OUTPATIEN 7 7 PHYSICIAN T NEW 10 S GROUP MINUTES EMERGENCY 04828 TAISHA CASTRO DEPT 7 7 PHYSICIAN VISIT S, PLLC HIGH SEVERITY& THREAT [facility] INGRID - 7 7 [facility] OUTPATIEN [facility] YAZMIN - ALEKSANDRA 7 7 MEDICAL CENTER OFFICE 03368 YAZMIN BOLDEN OUTPATIEN 7 7 T VISIT JAINISM 10 [facility] YAZMIN - 7 7 MEDICAL OUTPATIEN CENTER T OFFICE 20016 YAZMIN NATH OUTPATIEN 7 7 MEDICAL T VISIT CENTER 15 INC MINUTES OFFICE 91477 YAZMIN CADENA OUTPATIEN 6 6 T VISIT JAINISM 10 [facility] YAZMIN - 6 6 MEDICAL OUTPATIEN CENTER [facility] YAZMIN - OTHER 6 6 MEDICAL CENTER OFFICE 10814 [place] [facility] CADENA OUTPATI[facility] 6 6 T VISIT JAINISM 10 HOSP MINUTES [facility] [place] - 6 6 [facility] T OFFICE 20758 [place] [facility] 6 6 [facility] T V[facility] 10 MINUTES OFFICE 77123 YAZMIN ESTELLE CADENA OUTPATIEN 6 6 T VISIT JAINISM 25 HOSP MINUTES [facility] [place] - 6 6 [facility] T OFFICE 77171 [place] [facility] 6 6 [facility] 10 [facility]UTES [facility] [place] [facility] 6 [facility] T OFFICE 22393 YAZMIN ESTELLE CADENA OUTPATIEN 6 6 T VISIT JAINISM 15 HOSP MINUTES OFFICE 04009 Y[facility]MIN OUTPATIEN 6 6 [facility] T V[facility] C[facility] 10 [facility]UTES [facility] [place] [facility] T OFFICE 05852 YAZMIN MCCABE [facility] OUTPATIEN 6 6 T VISIT JAINISM 15 HOSP MINUTES OFFICE 44479 YAZMIN ROBERTSOME OUTPATIEN 6 6 JAM T VISIT JAINISM 25 HOSP MINUTES OFFICE 77584 YAZMIN MCCABE [facility] OUTPATIEN 6 6 T VISIT JAINISM 15 HOSP MINUTES OFFICE 57930 [facility] OUTPATIEN 6 6 [facility] T [facility] 10 [facility]UTES [facility] [place] [facility] T OFFICE 24453 [facility]EN[facility] OUTPATIEN 6 6 MEDICAL T VISIT CENTER 10 MINUTES OFFICE 32752 YAZMIN MCCABE CADENA OUTPATIEN 6 6 T VISIT JAINISM 15 HOSP MINUTES [facility] [place] - [facility] 6 [facility] T OFFICE 08055 YAZMIN MCCABE [facility] OUTPATIEN 6 6 T VISIT JAINISM 15 HOSP MINUTES [facility] [place] [facility] T OFFICE 66061 [place] [facility] 6 6 [facility] T [facility] 10 MINUTES OFFICE 48087 YAZMIN ESTELLE CADENA OUTPATIEN 6 6 T VISIT JAINISM 15 HOSP MINUTES OFFICE 65716 [place] [facility] 6 6 [facility] 10 MINUTES OFFICE 17974 YAZMIN ESTELLE CADENA OUTPATIEN 6 6 T VISIT JAINISM 25 HOSP MINUTES [facility] [place] [facility] T OFFICE 71119 [place] [facility] 6 6 [facility] T [facility] 10 MINUTES OFFICE 05357 BETTYE FREDA WEN FREDA OUTPATIEN 6 6 T VISIT 15 MINUTES [facility] [place] - [facility] 6 [facility] T OFFICE 28204 YAZMIN ESTELLE CADENA OUTPATIEN 5 5 T VISIT JAINISM 25 HOSP MINUTES [facility] [place] - 5 5 [facility] T OFF[facility] 18651 [place] [facility] 5 5 [facility] T [facility] 10 MINUTES [facility] [place] - 5 5 [facility] T OFFICE 56462 [place] OUTPATIEN 5 5 MEDICAL JAM T VISIT CENTER 25 INC MINUTES OFFICE 04377 [place] [facility] 5 5 [facility] T [facility] 10 [facility]UTES [facility] [place] [facility] 5 [facility] [place] [facility] T OFFICE 24986 [place] [facility] 5 5 [facility] T [facility] 10 MINUTES OFFICE 75465 [place] [facility] OUTPATIEN 5 5 [facility] 15 INC MINUTES OFFICE 79617 [place] SHEELA RAZ OUTPATIEN 5 5 T NEW 45 JAINISM MINUTES HOSP [facility] [place] [facility] 5 [facility] T OFFICE 52521 FÉLIXGABY MCCABE CADENA OUTPATIEN 5 5 T VISIT JAINISM 25 HOSP MINUTES OFFICE 94574 [place] [facility] 5 5 [facility] T [facility] 10 [facility]UTES [facility] [place] [facility] 5 [facility] T OFFICE 55509 [place] [facility] 5 5 [facility] T [facility] 10 MINUTES OFFICE 49900 YAZMIN MCCABE [facility] OUTPATIEN 5 5 T VISIT JAINISM 25 HOSP MINUTES [facility] [place] - [facility] 5 [facility] T OFFICE 47283 FÉLIXGABY RAZABS [place] OUTPATIEN 5 5 T VISIT JAINISM 25 HOSP MINUTES [facility] [place] - 5 5 [facility] T OFFICE 71624 [place] [facility] 5 5 [facility] T [facility] 10 MINUTES [facility] [place] - [facility] 5 [facility] T OFFICE 25459 [place] [facility] 5 5 [facility] T [facility] 10 [facility]UTES [facility] [place] [facility] 5 5 [facility] OFFICE 54560 YAZMIN MORALES [place] OUTPATIEN 5 5 T NEW 20 JAINISM MINUTES HOSP [facility] [place] [facility] OTHER 5 5 [facility]ENTER OFFICE 01907 FÉLIXGABY PORTILLO OUTPATIEN 5 5 [facility] 15 INC MINUTES OFFICE 19297 FÉLIXGABY MCCABE [facility] OUTPATIEN 5 5 T NEW 45 JAINISM MINUTES HOSP OFFICE 14851 YAZMIN NATH OUTPATIEN 5 5 [facility] 15 INC MINUTES OFFICE 96056 YAZMIN FITZGERALD OUTPATIEN 5 5 JAM T VISIT JAINISM 15 HOSP [facility] YAZMIN - 5 5 [facility] OUTPATIEN CENTER T OFFICE 38539 YAZMIN FITZGERALD OUTPATIEN 5 5 JAM T NEW 30 JAINISM MINUTES [facility] Y[facility] - 5 5 MEDICAL OUTPATIEN CENTER [facility] [place] - OTHER 4 4 [facility] EMERGENCY 74874 CAITIE RUIZ, 0 0 EMERGENCY [facility] T VISIT HIGH/URGE ASSOCIATE NT S SEVERITY OFFICE 19574 WILIAN CEDENO OUTPATIEN 8 8 CHANDRA ARTIS, T VISIT SILVIANO SILVIANO 25 MINUTES
--- OUTSIDE RECORDS SUMMARY | 2017-02-23 17:33 | External Medical Summary Rpt ---
Author Author , LORNA ROTHMAN Address Unknown Phone [email or web address] Care Team Providers Care Behavioral Consultant Name Role Phone AHMED RAZ, AHMED RAZ Unavailable Unavailable WEN FREDA, WEN FREDA Unavailable Unavailable BEINEKE, BEINEKE Unavailable Unavailable DAMICO, DAMICO Unavailable Unavailable MAREI CAM, Unavailable Unavailable MARIE CAM CHIPPS JABIER & Unavailable Unavailable DUBILIER, CHIPPS JABIER & DUBILIER KHOA-MIRANDA, Unavailable Unavailable SILVIANO, JUAN C, SILVIANO [facility] Unavailable Unavailable [facility] CRIS, CRIS Unavailable Unavailable [facility] Unavailable Unavailable PHYSICAL THERA, [facility]A ZACKARY RUIZ, Unavailable Unavailable ZACKARY RUIZ FRYMAN Unavailable Unavailable Pedrito MCPHERSON, VIDA, Unavailable Unavailable Pedrito Forde KENTRELL, KENTRELL Unavailable Unavailable KENTRELL DEN, KENTRELL Unavailable Unavailable DEN HARPEL, HARPEL Unavailable Unavailable [facility], [facility] Unavailable Unavailable HOSPITAL P, [facility] PRO, PRO Unavailable Unavailable PRO PRO Unavailable Unavailable [facility], Unavailable Unavailable [facility] MORALES LESIA, MORALES LESIA Unavailable Unavailable ZACARIAS MOURA Unavailable Unavailable ADDY CAICEDO, Unavailable Unavailable ADDY [facility] Unavailable Unavailable IM[facility], [facility] ESTELLE CADENA, ESTELLE CADENA Unavailable Unavailable ALESSANDRO HEWITT Unavailable Unavailable VIJAYA LOCKWOOD JR, JR Unavailable Unavailable ABHI DE LEON, Unavailable Unavailable ABHI DE LEON MULLINS Unavailable Unavailable JIN PORTILLO, PORTILLO Unavailable Unavailable PORTILLO JAM, PORTILLO Unavailable Unavailable JAM PAVEZ, PAVEZ Unavailable Unavailable [facility] Unavailable Unavailable [facility], [facility] Unavailable Unavailable [facility], [facility] Un[facility] Un[facility] Unavailable Unavailable PLL, [facility] Nilson MÁRQUEZ, Unavailable Unavailable Nilson MÁRQUEZ [facility], Unavailable Unavailable [facility], Unavailable Unavailable [facility] JC Unavailable Unavailable ANH GRIMES, ANH GRIMES Unavailable Unavailable [facility], [facility] AMILCAR BAUTISTA, AMILCAR Unavailable Unavailable [facility], Unavailable Unavailable [facility] Purpose Continuity of Care Document - 11-10-2007 through 2016 Problems Code Diagnosis DOS Provider Status [id number] MYOPIA 01-26-2017 PRO BILATERAL N6012 DIFFUSE 12-28-2016 [facility]ATH[facility] OF LEFT BREAST N951 MENOPAUSAL 12-28-2016 [facility] CLIMACTERIC GROUP STATES R6882 DECREASED 12-28-2016 [facility] LIBIDO PHYSICIANS GROUP R928 OT ABNORM 12-28-2016 [facility] MEDICAL INCONCLUSIV IMAGING ASS E FIND ON DX IMAG BREAST N3644 MUSCULAR 12-25-2016 [facility] DISORDERS PHYSICIANS OF URETHRA GROUP S92576 ENCOUNTER 12-04-2016 [facility] 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 [facility] GENERAL RTN INC W/O ABNORMAL FIND Z1231 ENCOUNTER 12-04-2016 [facility] SCREENING MEDICAL MAMMO MALIG IMAGING ASS NEOPLASM BREAST I10 ESSENTIAL 11-30-2016 [facility] PRIMARY PHYSICIANS HYPERTENSIO GROUP N N393 STRESS 11-30-2016 [facility] INCONTINENC PHYSICIANS E FEMALE GROUP MALE N819 FEMALE 11-30-2016 [facility] GENITAL PHYSICIANS PROLAPSE GROUP UNSPECIFIED N9412 DEEP 11-30-2016 [facility] DYSPAREUNIA PHYSICIANS GROUP N952 POSTMENOPAU 11-30-2016 [facility] N[place]OLAS PHYSICIANS ATROPHIC GROUP VAGINITIS R4189 OTH SX & 11-30-2016 [facility] SIGNS INVLV PHYSICIANS COGNITIVE GROUP FUNC & AWARENESS R569 UNSPECIFIED 11-30-2016 [facility] PHYSICIANS CONVULSIONS GROUP R9089 OTH 11-30-2016 [facility] ABNORMAL PHYSICIANS FIND ON DX GROUP IMAGING CNTRL NERV SYS F44059 ENCOUNTER 11-30-2016 [facility] 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 PHYSICIANS GENERAL RTN GROUP W/ABNORMAL FIND Z1212 ENCOUNTER 11-30-2016 [facility] SCREENING PHYSICIANS MALIGNANT GROUP NEOPLASM RECTUM R220 LOCALIZED 11-12-2016 [facility] MASS AND INC LUMP HEAD R51 HEADACHE 11-12-2016 [facility] R1723EU UNSPECIFIED 11-12-2016 [facility] INJURY OF MEDICAL HEAD IMAGING ASS INITIAL ENCOUNTER Z720 TOBACCO USE 11-12-2016 [facility] INC I159 SECONDARY 11-09-2016 [facility] HYPERTENSIO PHYSICIANS N GROUP UNSPECIFIED R232 FLUSHING 11-09-2016 [facility] R531 WEAKNESS 11-09-2016 [facility] Y67540 SLEEP 11-09-2016 [facility] DEPRIVATION PHYSICIANS GROUP K8010 CALCULUS GB 10-06-2016 CHIPPS W/CHRONIC JABIER & CHOLECYST DUBILIER W/O OBSTRUCTION K8020 CALCULUS GB 10-06-2016 [facility] W/O MEDICAL CHOLECYSTIT IMAGING ASS IS W/O OBSTRUCTION K810 ACUTE 10-06-2016 COMMUNITY CHOLECYSTIT ANESTH OF IS THE [facility] K828 OTHER 10-06-2016 [facility] SPECIFIED MEDICAL DISEASES OF IMAGING ASS GALLBLADDER R1011 RIGHT UPPER 10-06-2016 [facility] QUADRANT MEDICAL PAIN IMAGING ASS K8000 CALCULUS GB 10-05-2016 [facility] W/ACUTE [facility] P W/O OBSTRUCTION L71430 ENCOUNTER 10-05-2016 [facility] FOR OTHER MEDICAL PREPROCEDUR IMAGING ASS AL EXAMINATION M899 DISORDER OF 08-05-2016 [facility]ONE [facility] UNSPECIFIED PLLC R109 UNSPECIFIED 07-23-2016 [facility] G8921 CHRONIC 07-22-2016 [facility] PAIN DUE TO RELIGION TRAUMA HOSP S64508 PAIN IN 07-22-2016 [facility] LEFT HIP RELIGION HOSP M5136 OTH 07-22-2016 [facility] INTERVERTEB RELIGION RAL DISC HOSP DEGEN LUMBAR REGION T27054 PAIN IN 07-22-2016 [facility] LEFT LEG RELIGION HOSP G629 POLYNEUROPA 06-22-2016 [facility] THY RELIGION UNSPECIFIED HOSP M2140 FLAT FOOT 05-20-2016 [facility] PES [facility] UNSPECIFIED FOOT Q59197 POSTERIOR 05-20-2016 [facility] TIBIAL MEDICAL TENDINITIS CENTER UNSPECIFIED LEG R197 DIARRHEA 05-20-2016 [facility] UNSPECIFIED MEDICAL CENTER G5600 CARPAL 04-17-2016 [facility] SYNDROME UNSPECIFIED UPPER LIMB G5603 CARPAL 04-16-2016 [facility] TUNNEL RELIGION SYNDROME HOSP BILATERAL UPPER LIMBS M461 SACROILIITI 04-16-2016 [facility] S NOT RELIGION ELSEWHERE HOSP CLASSIFIED M1612 UNILATERAL 04-15-2016 [facility] PRIMARY [facility] OSTEOARTHRI CENTER TIS LEFT HIP M1712 UNILATERAL 04-15-2016 [facility] PRIMARY RADIOLOGY OSTEOARTHRI PLLC TIS LEFT KNEE V50028 PAIN IN 04-15-2016 [facility] UNSPECIFIED RADIOLOGY ANKLE PLLC M8580 OTH SPEC 04-15-2016 [facility] D/O [facility] STRUCTURE UNS SITE M542 CERVICALGIA 02-12-2016 [facility] RELIGION HOSP M5416 RADICULOPAT 02-10-2016 [facility] EDDY LUMBAR RELIGION REGION HOSP M545 LOW BACK 01-08-2016 [facility] PAIN RELIGION HOSP G8929 OTHER 11-13-2015 [facility] H36617 PAIN IN 11-13-2015 [facility] LEFT MEDICAL SHOULDER CENTER Q93592 PAIN IN 11-13-2015 [facility] LEFT THIGH [facility]ICAL CENTER Z5181 ENCOUNTER 11-13-2015 [facility] THERAPE[facility]IC C[facility] DRUG LEVEL MONITORING 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[facility] 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 MEDICAL OF OPIATE CENTER ANALGESIC T1490 INJURY 06-14-2015 [facility] UNSPECIFIED MEDICAL EXETER R38052 OTHER LONG 06-14-2015 [facility] TERM MEDICAL CURRENT CENTER DRUG THERAPY M5417 RADICULOPAT 05-21-2015 [facility] HY RELIGION LUMBOSACRAL HOSP REGION M532X8 SPINAL 05-09-2015 [facility] INSTABILITI RELIGION ES SAC HOSP SACROCOCCYG EAL REGION Z9889 OTHER 04-17-2015 [facility] SPECIFIED RELIGION POSTPROCEDU HOSP RAL STATES N800 ENDOMETRIOS 04-16-2015 [facility] IS OF RELIGION UTERUS HOSP N812 INCOMPLETE 04-16-2015 [facility] UTEROVAGINA RELIGION L PROLAPSE HOSP N814 UTEROVAGINA 04-16-2015 [facility] L PROLAPSE MEDICAL UNSPECIFIED CENTER N938 OTHER SPEC 04-16-2015 [facility] ABNORMAL RELIGION UTERINE & HOSP VAGINAL BLEEDING 28402 DEGEN 04-10-2015 [facility] LUMBAR/LUMB RELIGION OSACRAL HOSP INTERVERTEB RAL DISC 7242 LUMBAGO 04-10-2015 [facility] RELIGION HOSP 7244 THORACIC/MANDI 04-10-2015 [facility] MBOSACRAL RELIGION NEURITIS/RA HOSP DICULITIS UNSPEC 7246 DISORDERS 04-10-2015 [facility] OF SACRUM RELIGION HOSP 7202 SACROILIITI 04-04-2015 [facility] S NOT RELIGION ELSEWHERE HOSP CLASSIFIED 6264 IRREGULAR 03-28-2015 [facility] MENSTRUAL RELIGION CYCLE HOSP 6268 OTH D/O 03-28-2015 [facility] MENSTRUATIO RELIGION N&OTH ABN HOSP BLEED FE GNT TRACT 60596 DISORDER OF 02-18-2015 [facility] UNSPECIFIED 44655 HYPERTENSIO 02-18-2015 [facility] Salazar REPLACED BY [facility] V5869 LONG-TERM 02-18-2015 [facility] (CURRENT) MEDICAL USE OF CENTER OTHER MEDICATIONS V5883 ENCOUNTER 02-18-2015 [facility] DRUG MONITORING V700 ROUTINE 02-18-2015 [facility] EXAM@HEALTH CARE FACL 42297 PAIN IN 02-11-2015 [facility] JOINT RELIGION PELVIC HOSP REGION AND THIGH 7197 DIFFICULTY 02-11-2015 [facility] IN WALKING [facility] PHYSICAL THERA 7243 SCIATICA 02-11-2015 [facility] PHYSICAL THERA 4019 UNSPECIFIED 01-14-2015 [facility] ESSENTIAL MEDICAL HYPERTENSIO CENTER INC N 7213 LUMBOSACRAL 01-14-2015 [facility] SPONDYLOSIS EXETER WITHOUT MYELOPATHY V725 RADIOLOGICA 01-14-2015 [facility] Ontiveros RADIOLOGY EXAMINATION PLL NEC 7245 UNSPECIFIED 12-27-2014 [facility] BACKACHE RADIOLOGY PLL 6110 INFLAMMATOR 05-30-2014 [facility] Y DISEASE MEDICAL OF [facility] 82604 UNSPECIFIED 10-17-2009 [facility] V720 EXAMINATION 10-10-2009 [facility], OF EYES ABHI G AND VISION 9594 INJURY 02-05-2009 [facility] OTHER AND RADIOLOGY UNSPECIFIED PLLC HAND EXCEPT FINGER 6202 OTHER AND 01-10-2008 [facility] UNSPECIFIED PHYS SVCS OVARIAN CHIEF ARCHITECT [facility]ST [facility] 6262 EXCESSIVE 01-10-2008 [facility] OR FREQUENT PHYS SVCS CHIEF ARCHITECT [facility] MENSTRUATIO [facility] 50381 ABDOMINAL 01-08-2008 DIAGNOSTIC PAIN RIGHT [facility] QUADRANT 3671 MYOPIA 11-10-2007 COUCH-COM PTON, SILVIANO 28867 UNSPECIFIED 11-10-2007 COUCH-COM PTON, ASTIGMATISM SILVIANO Medications [...] 07 08 30 30 00 HO Ac WI 00 -1 -0 .0 00 ME ti [...] 00 ME ti UT 50 2- 4- 06 TO ve YN 27 20 20 08 WN IN 13 17 17 90 7 89 PH CL AR MA ER CY 10 OF MG CY NT TA HI BL AN ET A PA 68 07 08 30 30 00 HO Ac RO 38 -1 -0 .0 00 ME ti XE 20 2- 4- 06 TO ve TI 00 20 20 [...] 00 ME ti NO 00 9- 8- 06 TO ve WI 51 20 20 08 WN IL 90 17 17 98 -H [address] AR Z MA 20 CY -1 2. OF 5 MG CY NT TA HI B AN A TI 29 06 07 90 30 00 HO Ac ZA 30 -2 -2 .0 00 ME ti NI 00 9- 8- 00 06 TO ve DI 16 20 20 08 WN NE 91 17 17 98 0 91 PH HC AR L MA 4 CY MG OF TA BL CY ET NT HI AN A TR 50 06 [...] BL ET CY NT HI AN A ME 68 06 07 30 30 00 HO Ac LO 38 -2 -2 .0 00 ME ti XI 20 9- 8- 00 06 TO ve CA 05 20 20 08 WN M 00 17 17 98 7. 5 94 PH 5 AR MG MA CY TA BL OF ET CY NT HI AN A OX 62 06 07 30 30 00 HO Ac YB 17 -1 -1 .0 00 ME ti UT 50 6- 4- 00 06 TO ve YN 27 20 20 08 WN IN 13 17 17 90 7 89 PH CL AR MA ER CY 10 OF MG CY NT TA HI BL AN ET A BU 68 06 07 30 30 00 HO Ac WI 00 -1 -1 .0 00 ME ti OP 10 6- 4- 00 06 TO ve IO 28 20 20 08 WN N 70 17 17 61 HC 3 17 PH L AR XL MA CY 15 0 OF MG CY TA NT BL HI ET AN A PA 68 06 07 30 30 00 HO Ac RO 38 -1 -1 .0 00 ME ti XE 20 9- 4- 00 06 TO ve TI 00 20 20 08 WN NE 10 17 17 92 6 54 PH HC AR L MA 40 CY MG OF TA CY BL NT ET HI AN A NI 00 06 07 28 28 00 HO Ac CO 53 -1 -1 .0 00 ME ti TI 65 9- 4- 00 06 TO ve NE 89 20 20 08 WN 68 17 17 93 21 8 05 PH AR MG MA /2 CY 4H R OF PA TC CY H NT HI AN A GA 68 05 06 90 30 00 HO Ac BA 00 -3 -2 .0 00 ME ti PE 10 0- 3- 00 06 TO ve NT 00 20 20 08 WN IN 70 17 17 79 3 07 PH 80 AR 0 MA MG CY TA OF BL ET CY NT HI AN A TR 50 05 06 30 30 00 HO Ac AZ 11 -3 -2 .0 00 ME ti OD 10 1- 3- 00 06 TO ve ON 43 20 20 08 WN E 40 17 17 79 10 2 87 PH 0 AR MG MA CY TA BL OF ET CY NT HI AN A LI 68 05 06 30 30 00 HO Ac SI 18 -3 -2 .0 00 ME ti NO 00 1- 3- 00 06 TO ve WI 51 20 20 08 WN IL 90 17 17 79 -H [address] AR Z MA 20 CY -1 2. OF 5 MG CY NT TA HI B AN A TI 29 05 06 90 30 00 HO Ac ZA 30 -3 -2 .0 00 ME ti NI 00 1- 3- 00 06 TO ve DI 16 20 20 08 WN NE 91 17 17 79 0 89 PH HC AR L MA 4 CY MG OF TA BL CY ET NT HI AN A ME 68 05 06 30 30 00 HO Ac LO 38 -3 -2 .0 00 ME ti XI 20 1- 3- 00 06 TO ve CA 05 20 20 08 WN M 00 17 17 79 7. 5 90 PH 5 AR MG MA CY TA BL OF ET CY NT HI AN A OX 62 05 06 14 14 00 HO Ac YB 17 -2 -1 .0 00 ME ti UT 50 2- 6- 00 06 TO ve YN 27 20 20 08 WN IN 13 17 17 75 7 01 PH CL AR MA ER CY 10 OF MG CY NT TA HI BL AN ET A PA 68 05 06 30 30 00 HO Ac RO 38 -1 -0 .0 00 ME ti XE 20 5- 9- 00 06 TO ve TI 00 20 20 08 WN NE 10 17 17 61 6 15 PH HC AR L MA 40 CY MG OF TA CY BL NT ET HI AN A BU 00 05 06 60 30 00 HO Ac SP 11 -1 -0 .0 00 ME ti IR 51 5- 9- 00 06 TO ve ON 69 20 20 08 WN E 10 17 17 61 HC 2 16 PH L AR 10 MA CY MG OF TA BL CY ET NT HI AN A GA 68 05 05 90 30 00 HO Ac BA 00 -0 -2 .0 00 ME ti PE 10 1- 6- 00 06 TO ve NT 00 20 20 08 WN IN 70 17 17 61 3 12 PH 80 AR 0 MA MG CY TA OF BL ET CY NT HI AN A ME 68 05 05 30 30 00 HO Ac LO 38 -0 -2 .0 00 ME ti XI 20 1- 6- 00 06 TO ve CA 05 20 20 08 WN M 00 17 17 61 7. 5 13 PH 5 AR MG MA CY TA BL OF ET CY NT HI AN A TI 29 05 05 90 30 00 HO Ac ZA 30 -0 -2 .0 00 ME ti NI 00 1- 6- 06 TO ve DI 16 20 20 08 WN NE 91 17 17 61 0 14 PH HC AR L MA 4 CY MG OF TA BL CY ET NT HI AN A BU 68 05 05 30 30 00 HO Ac WI 00 -0 -2 .0 00 ME ti OP 10 1- 6- 06 TO ve IO 28 20 20 08 WN N 70 17 17 61 HC 3 17 PH L AR XL MA CY 15 0 OF MG CY TA NT BL HI ET AN A TR 50 05 05 30 30 00 HO Ac AZ 11 -0 -2 .0 00 ME ti OD 10 1- 6- 06 TO ve ON 43 20 20 08 WN E 40 17 17 61 10 2 18 PH 0 AR MG MA CY TA BL OF ET CY NT HI AN A LI 68 05 05 30 30 00 HO Ac SI 18 -0 -2 .0 00 ME ti NO 00 1- 6- 06 TO ve WI 51 20 20 08 WN IL 90 17 17 61 -H [address] AR Z MA 20 CY -1 2. OF 5 MG CY NT TA HI B AN A LI 68 04 05 30 30 00 RI Ac SI 18 -2 -1 .0 00 TE ti NO 00 4- 9- 01 ve WI 51 20 20 17 AI IL 80 17 17 54 D -H [address] AR Z MA 10 CY -1 2. #3 5 93 MG 8 TA B BU 00 04 05 60 30 00 RI Ac WI 18 -1 -0 .0 00 TE ti OP 50 2- 5- 00 01 ve IO 41 20 20 17 AI N 56 17 17 54 D HC 0 44 PH L AR SR MA CY 15 0 #3 MG 93 8 TA BL ET TI 55 04 05 60 30 00 RI Ac ZA 11 -1 -0 .0 00 TE ti NI 10 2- 5- 00 01 ve DI 18 20 20 17 AI NE 01 17 17 54 D 5 35 PH HC AR L MA 4 CY MG #3 TA 93 BL 8 ET TR 50 04 05 60 30 [...] 1 90 PH CE AR TA MA HI CY NO PH #3 EN 93 8 5- 32 5 LI 68 03 04 30 30 00 RI Ac SI 18 -1 -1 .0 00 TE ti NO 00 9- 4- 00 01 ve WI 51 20 20 17 AI IL 80 17 17 54 D -H [address] AR Z MA 10 CY -1 2. #3 5 93 MG 8 TA B ME 68 03 04 30 30 00 RI Ac LO 38 -1 -0 .0 00 TE ti XI 20 5- 7- 00 01 ve CA 05 20 20 17 AI M 10 17 17 54 D 15 1 29 PH AR MG MA CY TA BL #3 ET 93 8 TI 55 03 04 60 30 00 RI Ac ZA 11 -1 -0 .0 00 TE ti NI 10 5- 7- 00 01 ve DI 18 20 20 17 AI NE 01 17 17 54 D 5 35 PH HC AR L MA 4 CY MG #3 TA 93 BL 8 ET BU 68 03 04 60 30 00 RI Ac SP 38 -1 -0 .0 00 TE ti IR 20 5- 7- 00 01 ve ON 18 20 20 17 AI E 10 17 17 54 D HC 1 37 PH L AR 10 MA CY MG #3 TA 93 BL 8 ET TR 50 03 04 60 30 00 RI Ac AZ 11 -1 -0 .0 00 TE ti OD 10 5- 7- 00 01 ve ON 43 20 20 17 AI E 30 17 17 54 D 50 1 40 PH AR MG MA CY TA BL #3 ET 93 8 PA 43 03 04 30 30 00 RI Ac RO 54 -1 -0 .0 00 TE ti XE 70 5- 7- 00 01 ve TI 35 20 20 17 AI NE 00 17 17 54 D 3 41 PH HC AR L MA 40 CY MG #3 93 TA 8 BL ET BU 00 03 04 60 30 00 RI Ac WI 18 -1 -0 .0 00 TE ti OP 50 5- 7- 00 01 ve IO 41 20 20 17 AI N 56 17 17 54 D HC 0 44 PH L AR SR MA CY 15 0 #3 MG 93 8 TA BL ET LI 68 02 03 30 30 00 VA Ac SI 18 -2 -2 .0 00 LL ti NO 00 4- 4- 00 00 EY ve WI 51 20 20 84 IL 80 17 17 90 DI -H [address] OU Z NT 10 -1 PH 2. AR 5 MA MG CY TA B BU 00 02 03 60 30 00 [...] BL AR ET MA CY TI 29 02 03 60 30 00 VA Ac ZA 30 -1 -1 .0 00 LL ti NI 00 4- 0- 00 00 EY ve DI 16 20 20 84 NE 91 17 17 90 DI 0 44 SC HC OU L NT 4 MG PH AR TA MA BL CY ET BU 69 02 03 60 30 00 VA Ac WI 09 -1 -1 .0 00 LL ti OP 70 4- 0- 00 00 EY ve IO 87 20 20 84 N 81 17 17 90 DI HC 2 45 SC L OU SR NT 15 PH 0 AR MG MA CY TA BL ET PA 68 02 03 30 30 00 VA Ac RO 38 -1 -1 .0 00 LL ti XE 20 4- 0- 00 00 EY ve TI 00 20 20 84 NE 10 17 17 90 DI 6 46 SC HC OU L NT 40 PH MG AR MA TA CY BL ET TR 50 02 03 60 31 00 VA Ac AZ 11 -1 -1 .0 00 LL ti OD 10 4- 0- 00 00 EY ve ON 43 20 20 84 E 30 17 17 90 DI 50 3 47 SC OU MG NT TA PH BL AR ET MA CY LI 68 01 02 30 30 00 VA Ac SI 18 -2 -1 .0 00 LL ti NO 00 3- 7- 00 00 EY ve WI 51 20 20 84 IL 80 17 [...] AR BL MA ET CY BU 00 02 60 30 00 VA Ac SP 59 -1 -0 .0 00 LL ti IR 10 0- 3- 00 00 EY ve ON 65 20 20 84 E 80 17 17 03 DI HC 5 33 SC L OU 10 NT MG PH AR TA MA BL CY ET BU 69 01 02 60 30 00 VA Ac WI 09 -1 -0 .0 00 LL ti [...] AR ET MA CY PA 68 02 30 30 00 VA Ac RO [...] BL AR ET MA CY TI 29 02 60 30 00 VA Ac ZA 30 -1 -0 .0 00 LL ti NI 00 0- 3- 00 00 EY ve DI 16 20 20 84 NE 91 17 17 03 DI 0 40 SC HC OU L NT 4 MG PH AR TA MA BL CY ET HY 00 02 [address] 60 -1 -0 0. 00 LL ti OC 33 1- 3- 00 00 EY ve OD 89 20 20 0 84 ON 12 17 17 57 DI -A 1 77 SC CE OU TA NT HI NO PH PH AR MA 7. CY [...] 00 3- 0- 00 00 EY ve WI 51 20 20 84 IL 80 16 [...] .0 00 LL ti NI 00 9- 00 EY ve DI 16 20 20 84 NE 91 16 17 03 DI 0 40 SC HC OU L NT 4 MG PH AR TA MA BL CY ET TR 50 12 01 60 30 00 VA Ac AZ 11 -0 -0 .0 00 LL ti OD 10 9- 00 EY ve ON 43 20 20 84 E 30 16 17 03 DI 50 3 38 SC OU MG NT TA PH BL AR ET MA CY PA 68 12 01 30 30 00 VA Ac RO 38 -0 -0 .0 00 LL ti XE 20 9 00 EY ve TI 00 20 20 84 NE 10 16 17 03 DI 5 37 SC HC OU L NT 40 PH MG AR MA TA CY BL ET ME 68 12 01 30 30 00 VA Ac LO 38 -0 -0 .0 00 LL ti XI 20 9 9- 00 00 EY ve CA 05 20 20 84 M 10 16 17 03 DI 15 5 36 SC OU MG NT TA PH BL AR ET MA CY BU 69 12 01 60 30 00 VA Ac WI 09 -0 -0 .0 00 LL ti [...] .0 00 LL ti IR 10 9- 00 00 EY ve ON 65 [...] 1 98 SC CE OU TA NT HI NO PH PH AR MA 7. CY 5- 32 5 00 04 04 0 20 3 VA 63 WH Ac 59 -1 -1 .0 LL 25 IT ti 10 2 2 00 EY 32 T ve 34 20 20 SP 90 10 10 DI RA 5 SO DL UN IN T PH HE AR AT MA HE CY R P 00 04 04 0 28 7 VA 63 CO Ac 78 -0 -0 .0 LL 24 LL ti 12 8- 9 00 EY 70 IN ve 11 20 20 S 20 10 10 DI JE 1 SO NN UN IF T ER PH AR MA CY 53 04 04 0 24 8 VA 63 CO Ac 74 -0 -0 .0 LL 24 LL ti 60 8 9 00 EY 71 IN ve 13 20 [...] Procedure DOS Code Location Performer Comment FITTING 04533 PROCarnival SPECTACLE 7 S XCPT APHAKIA MONOFOCAL OPHTH 80105 [facility] MEDICAL 7 XM&EVAL COMPRE NEW PT 1/> VST THERAPEUT 12491 [facility] IC 7 PHYSICIAN PROPHYLAC S GROUP TIC/DX INJECTION SUBQ/IM DIAGNOSTI 27262 [facility] Mann 7 [facility] MAMMOGRAP INC INC HY COMPUTER- AIDED DETCJ UNI DIAGNOSTI G0206 [place] 7 MEDICAL MAMMOGRAP IMAGING HY INCL ASS CAD WHEN PERF; UNI MAMMO 3340F [facility] 3[facility] ASSESSMEN 7 MEDICAL T CAT IMAGING INCOMP ASS ADDTNL IMAGE DOCD SCREENING G0202 [facility] PEARL 7 MEDICAL MAMMOGRAP IMAGING HY DAYANARA ASS INCL CAD WHEN PERFORMD SCREENING 62021 [facility] QUINTERO 7 MEM HOSP [facility] HOSP MAMMOGRAP INC INC HY BI 2-VIEW BREAST INC CAD INFO 7025F [facility]NOTE 3] SYSTEM 7 MEDICAL ANALYSIS IMAGING ABNORMAL ASS INTERPRAT E BLOOD 87791 [facility] OCCULT 7 PHYSICIAN PHYSICIAN PEROXIDAS S GROUP S GROUP E ACTV QUAL FECES 1-3 SPEC IADNA 20069 [facility] HAR[facility]L NEISSERIA 7 PHYSICIAN S GROUP GONORRHOE AE DIRECT PROBE TQ CULTURE 86745 [facility] CHLAMYDIA 7 PHYSICIAN ANY S GROUP SOURCE COMPREHEN 67642 [facility] SIVE 7 [facility] HOS[facility] METABOLIC INC INC PANEL COLLECTIO 36241 [facility] VENOUS [facility] BLOOD INC INC VENIPUNCT URE FINAL G9638 [facility] REPORTS 7 MEDICAL W/O DOC IMAGING 1/MORE ASS DOSE REDUCTION TECH BLOOD 38304 [facility] COUNT 7 [facility] COMPLETE INC INC AUTO&AUTO DIFRNTL WBC URNLS DIP 09041 [facility] 7 [facility] STICK/TAB INC [place] [address] [facility] HEAD/BRAI 7 [facility] N W/O INC INC CONTRAST MATERIAL LAPAROSCO 87233 [facility] PY SURG 7 [facility] CHOLECYST INC INC ECTOMY ANES 11012 [facility] INTRAPERI 7 ANESTH TONEAL OF THE UPPER BLUE ABDOMEN W/LAPS NOS FINAL G9551 [facility] REPR ABD 7 MEDICAL IMAG STS IMAGING W/O ASS INCIDNT FND LES NTD: BLOOD 62640 [facility] COUNT 7 [facility] COMPLETE INC INC AUTO&[place] [address] [facility] ABDOMINAL 7 [facility] REAL INC INC TIME W/IMAGE LIMITED LEVEL III 69606 IN[facility]O SURG 7 [facility] PATHOLOGY INC INC GROSS&JCAE ROSCOPIC EXAM HOSP[facility] [id number] INGRID QU[facility]O OBSERVATI 7 [facility] ON INC INC SERVICE PER HOUR COLLECTIO 70216 INGRID QUINTERO N VENOUS 7 [facility] [place] [address] IN[facility] AMYLASE 7 [facility] INC INC ECG 69383 IN[facility] ROUTINE 7 [facility] ECG INC INC W/LEAST 12 LDS TRCG ONLY W/O I&[place] [address] INGR[facility] QU[facility]O LIPASE 7 [facility] INC INC COMPREHEN 41595 INGR[facility] QU[facility]O SIVE 7 [facility] [place] [address] INGRID QUINTERO ABDOMEN & 7 [facility] PELVIS INC INC W/O CONTRAST MATERIAL THER 78831 INGRID QUINTERO PROPH/DX 7 [facility] NJX IV INC INC PUSH SINGLE/1S T SBST/DRUG ECG 05747 INGRID LILLY JR ROUTINE 7 [facility] W/LEAST P 12 LDS I&R ONLY HOSPITAL [id number] INGRID QU[facility]O OBSERVATI 7 [facility] ON INC INC SERVICE PER HOUR THERAPEUT 62579 INGRID QUINTERO IC 7 [facility] INJECTION INC INC IV PUSH EACH NEW DRUG BLOOD 41168 INGRID QUINTERO COUNT 7 [facility] COMPLETE INC INC AUTO&AUTO DIFRNTL WBC RADIOLOGI 47681 INGRID QUINTERO C EXAM 7 [facility] CHEST 2 INC INC VIEWS FRONTAL&L ATERAL URNLS DIP 45738 INGRID QUINTERO 7 [facility] STICK/TAB INC INC LET REAGENT AUTO MICROSCOP Y THER 91000 INGRID QUINTERO PROPH/DX 7 [facility] NJX EA INC INC SEQL IV PUSH SBST/DRUG FAC DXA BONE 21092 YAZMIN WARE 7 STUDY 1/> RADIOLOG[facility] S[facility]ES [facility] AXIAL SKEL BLOOD 78227 YAZMIN ARCE COUNT 7 [facility] COMPLETE CENTER CENTER AUTO&AUTO DIFRNTL WBC URNLS DIP 87231 YAZMIN ARCE 7 [facility] STICK/TAB CENTER CENTER LET REAGENT AUTO MICROSCOP Y LIPID 46924 YAZMIN ARCE PANEL [address] [place] [address] COMPREHEN 91022 YAZMIN ARCE SIVE [address] [place] [address] METABOLIC [place] [address] YAZMIN ARCE LIPASE [address] [place] [address] [place] [address] YAZMIN ARCE AMYLASE [address] [place] [address] COLLECTIO 17867 YAZMIN ARCE N VENOUS [address] [place] [address] B[place] [facility] [place] [address] YAZMIN FRANCOIS ABDOMINAL 6 [facility] REAL RADIOLOGY TIME PLLC W/IMAGE DOCUMENTA TION OVA&MABEL 74280 YAZMIN ARCE ITES 6 [facility] DIRECT [facility] SMEARS CONCENTRA TION & ID [id number] YAZMIN ARCE NOT [address] [place] [address] OTHERWISE [facility] SPECIFIED INF AGENT 25378 YAZMIN ARCE DET 6 [facility] NUCLEIC STURGIS [facility] ACID CLOSTRIDI UM AMP PROBE CUL BACT 89421 YAZMIN ARCE STOOL 6 [facility] AEROBIC EXETER CENTER ISOL SALMONELL A&SHIGELL DRUG TST G0477 YAZMIN ARCE PRESUMP;C 6 [facility] PBL BEING [facility] READ DC OPT OBV ONLY SMR PRIM 31060 YAZMIN ARCE SRC CPLX 6 [facility] SPEC EXETER CENTER STAIN OVA&MABEL ITS WRIST L3908 RX RX HAND 6 DISCOUNT [facility]COUNT [facility] PH[facility] EXT CONTROL COCK-UP PREFAB RADEX HIP 96795 YAZMIN ARCE 6 [facility] UNILATERA [facility] L WITH PELVIS 2-3 VIEWS RADIOLOGI 51077 YAZMIN ARCE C [address] [place] [address] EXAMINATI EXETER CENTER ON FEMUR MINIMUM 2 VIEWS RADEX 61943 YAZMIN ARCE ANKLE 6 [facility] COMPLETE [facility] MINIMUM 3 VIEWS RADIOLOGI 24173 YAZMIN ARCE C 6 [facility]ICAL EXAMINATI CENTER CENTER ON KNEE 3 VIEWS DRUG TST G0477 YAZMIN ARCE PRESUMP;C 6 [facility] MEDICAL PBL BEING CENTER CENTER READ DC OPT OBV ONLY NERVE 08057 YAZMIN CRANDALL CONDUCTIO 6 N STUDIES RELIGION 5-6 HOSP STUDIES RADIOLOGI 00537 YAZMIN Mann 5 [facility] EXAMINATI RADIOLOGY ON FEMUR PLLC 2 VIEWS DRUG SCR G0434 YAZMIN ARCE NOT 5 [facility] CHROMATOG CENTER CENTER RAPHIC; ANY NUMBER PT ENC THER 74056 YAZMIN ARCE PROPH/DX 5 [facility] NJX EA CENTER CENTER SEQL IV PUSH SBST/DRUG FAC POSTOP 76968 YAZMIN SHAH FOLLOW UP 5 JIN VISIT RELIGION RELATED HOSP TO ORIGINAL PX INFLUENZA Q2038 YAZMIN ARCE VACC 5 [facility] SPLIT [facility] VIRUS 3 YRS & > IM FLUZONE IM ADM 36440 YAZMIN ARCE PRQ ID 5 [facility] SUBQ/IM CENTER CENTER NJXS 1 VACCINE INJECTION J2270 YAZMIN ARCE MORPHINE [address] [place] [address] SULFATE [facility] UP TO 10 MG THER 14890 YAZMIN ARCE PROPH/DX 5 [facility] NJX IV CENTER CENTER PUSH SINGLE/1S T SBST/DRUG VAGINAL 51719 YAZMIN ARCE HYSTERECT 5 [facility] ANNA EXETER CENTER UTERUS 250 GM/< INJECTION J1100 YAZMIN ARCE 5 [facility] DEXAMETHO CENTER EXETER SONE SODIUM PHOSPHATE 1 MG INJECTION J1170 YAZMIN ARCE [address] [place] [address] HYDROMORP CENTER CENTER JAJA UP TO 4 MG RINGERS J7120 YAZMIN ARCE LACTATE [address] [place] [address] INFUSION CENTER CENTER UP TO 1000 CC COLLECTIO 77843 YAZMIN ARCE N VENOUS [address] [place] [address] BLOOD [facility] VENIPUNCT URE ANESTHESI 00517 YAZMIN KAMARA CORNELIO A 5 INTRAPERI RELIGION [facility] LOWER ABD W/LAPS NOS INJECTION J2405 YAZMIN ARCE [address] [place] [address] ONDANSETR EXETER CENTER ON HCL PER 1 MG URINE 98469 YAZMIN ARCE [address] [place] [address] MEDICAL TEST CENTER CENTER VISUAL COLOR CMPRSN METHS THER 49672 YAZMIN ARCE PROPH/DX [address] [place] [address] NJX EA CENTER EXETER SEQL IV PUSH SBST/DRUG FAC INJECTION J2710 YAZMIN ARCE [address] [place] [address] NEOSTIGMI [facility] NE METHYLSUL FATE UP TO 0.5 MG INJECTION J3010 YAZMIN ARCE FENTANYL [address] [place] [address] CITRATE [facility] 0.1 MG INJECTION J0690 YAZMIN ARCE [address] [place] [address] CEFAZOLIN [facility] SODIUM 500 MG INJECTION J2250 YAZMNI ARCE [address] [place] [address] MIDAZOLAM [facility] HCL PER 1 MG INJECTION J2270 YAZMIN ARCE MORPHINE [address] [place] [address] SULFATE [facility] UP TO 10 MG BLOOD 98350 YAZMIN ARCE TYPING [address] [place] [address] SEROLOGIC CENTER EXETER RH ([place]) [place] [address] YAZMIN ARCE SURG [address] [place] [address] PATHOLOGY CENTER EXETER [facility] G0378 YAZMIN ARCE OBSERVATI [address] [place] [address] ON [facility] SERVICE PER HOUR VAGINAL 79596 YAZMIN MORALES LESIA HYSTERECT 5 ANNA RELIGION W/TOT/PRT HOSP L VAGINECTO MY ANTIBODY 72988 YAZMIN ARCE SCREEN [address] [place] [address] RBC EACH CENTER CENTER SERUM TECHNIQUE BLOOD 84990 YAZMIN ARCE TYPING [address] [place] [address] SEROLOGIC [facility] [place] [address] YAZMIN MCCABE CADENA JOINT 5 ARTHRGRPH RELIGION Y&/ANES/S HOSP TEROID W/[place] [address] YAZMIN ARCE TRANSVAGI [address] [place] [address] NAL CENTER CENTER COLLECTIO 93754 YAZMIN ARCE N VENOUS [address] [place] [address] BLOOD [place] [address] YAZMIN ARCE THYROID [address] [place] [address] STIMULATI [facility] NG HORMONE TSH COMPREHEN 33290 YAZMIN ARCE SIVE 5 [facility] METABOL[place] [address] YAZMIN ARCE THYROID 5 [facility] STIMULATI CENTER CENTER NG HORMONE TSH BLOOD 63346 YAZMIN ARCE COUNT 5 [facility] MEDICAL COMPLETE CENTER CENTER AUTO&AUTO DIFRNTL WBC LIPID 93808 YAZMIN ARCE PANEL [facility] CENTER URNLS DIP 15771 YAZMIN ARCE 5 [facility] STICK/TAB CENTER CENTER LET REAGENT AUTO MICROSCOP Y COLLECTIO 74243 YAZMIN ARCE N VENOUS [address] [place] [address] BLOOD CENTER CENTER VENIPUNCT URE 25 72085 YAZMIN ARCE HYDROXY 5 [facility] INCLUDES EXETER CENTER FRACTIONS IF PERFORMED THERAPEUT 67357 [place]/> 5 [place] [facility] PHYSICAL EACH 15 THERA MIN EXERCISES APPL 06029 [place] MARIE MODALITY 5 [place] [facility] 1/> AREAS PHYSICAL ELEC THERA STIMJ UNATTENDE D APPL 13556 [place] MARIE MODALITY 5 [place] [facility] 1/> AREAS PHYSICAL ELEC THERA STIMJ UNATTENDE D THERAPEUT 87413 [place] [facility] PX 1/> 5 [place] [facility] PHYSICAL EACH 15 THERA MIN EXERCISES THERAPEUT 39314 [place] P[place] 1/> 5 [place] [facility] PHYSICAL EACH 15 THERA MIN EXERCISES E-STIM G0283 ERICK[place] MARIE 1/> AREAS 5 [place] [facility] THAN PHYSICAL WND CARE THERA PART TX PLAN E-STIM G0283 ERICK[place] MARIE 1/> AREAS 5 [place] [facility] THAN PHYSICAL WND CARE THERA PART TX PLAN MANUAL 64963 ERICK[place] MARIE THERAPY 5 [place] [facility] TQS 1/> PHYSICAL REGIONS THERA EACH 15 MINUTES THERAPEUT 43513 [place] PX 1/> 5 [place] [facility] PHYSICAL EACH 15 THERA MIN EXERCISES PHYSICAL 40317 [place] MARIE THERAPY 5 [place] [facility] EVALUATIO PHYSICAL N THERA THERAPEUT 79828 [facility] P[place] 1/> 5 [place] [facility] PHYSICAL EACH 15 THERA MIN EXERCISES MANUAL 46729 ER[place] MARIE THERAPY 5 [place] CAM TQS 1/> PHYSICAL REGIONS THERA EACH 15 MINUTES E-STIM G0283 ERICKA MARIE 1/> AREAS 5 [place] CAM OTH THAN PHYSICAL WND CARE THERA PART TX PLAN MRI 42070 YAZMIN PFEIFFER SPINAL 5 DEN CANAL RADIOLOGY LUMBAR PLLC W/O CONTRAST MATERIAL INJECTION J1885 YAZMIN ROBERTSOME 5 [facility] KETOROLAC [facility] INE PER 15 MG RADEX 57140 YAZMIN ARCE SPINE 5 [facility] LUMBSCRL [facility] COMPL W/BENDING VIEWS MIN 6 RADEX HIP 19102 YAZMIN ADAMES 5 [facility] [place] RADIOLOGY L PLLC COMPLETE MINIMUM 2 VIEWS RADEX 59614 YAZMIN ADAMES SPINE 5 [facility]ACHO LUMBOSACR RADIOLOGY AL PLLC MINIMUM 4 VIEWS CUL BACT 03326 YAZMIN ARCE XCPT 4 [facility] URINE [facility] BLOOD/STO OL AEROBIC ISOL OPHTH 14853 HALEY DE LEON, MEDICAL 0 ABHI Blair XM&EVAL COMPRHNSV ESTAB PT 1/> DETERMINA 32600 HALEY DE LEON TION 0 ABHI Blair REFRACTIV E STATE RADEX 83666 YAZMIN ADAMES HAND 9 ADDY A MINIMUM 3 RADIOLOGY VIEWS [facility] 00740 Pedrito GARCIA DISCHARGE 8 PHYS [facility] D DAY CHIEF ARCHITECT MANAGEMEN [place] T 30 [place] MIN/< CLINIC SBSQ 71509 [facility] 8 PHYS [facility] D CARE/DAY CHIEF ARCHITECT [address] [place] [address] DIAGNOSTI RAMAKRISH ABDOMEN 8 C IMAGING Nilson CANTRELL W/CONTRAS T ASSOCIATE MATERIAL S CT PELVIS 98882 DIAGNOSTI RAMAKRISH 8 C IMAGING Nilson CANTRELL W/CONTRAS T ASSOCIATE MATERIAL S Encounters Encounter Start End Date Code Location Performer Type Date [facility]OSPITAL INGR[facility] - [facility] 7 [facility] T OFF[facility] 96001 [facility] OUTPATIEN 7 7 PHYSICIAN T VISIT S GROUP 25 MINUTES OFFICE 55814 [facility] OUTPATIEN 7 7 PHYSICIAN T VISIT S GROUP 15 MINUTES [facility]OSP[facility] - 7 7 [facility] OUTPATIEN INC T OFFICE 67464 [facility] OUTPATIEN 7 7 PHYSICIAN T NEW 45 S GROUP MINUTES INITIAL 22758 [facility] PREVENTIV 7 7 PHYSICIAN E S GROUP MEDICINE NEW PATIENT 40-64YRS EMERGENCY 47300 INGR[facility] 7 7 [facility] DEPARTMEN INC T VISIT MODERATE SEVERITY [facility] - 7 7 [facility] OUTPATIEN INC T OFFICE 30877 [facility] OUTPATIEN 7 7 PHYSICIAN T NEW 10 S GROUP MINUTES HOSPITAL IN[facility] - 7 7 [facility] OUTPATIEN INC T EMERGENCY 78625 [facility] DEPT 7 7 [facility] VISIT INC HIGH SEVERITY& [facility] 7 7 MEDICAL CENTER OFFICE 89457 YAZMIN ROBERTSOME OUTPATIEN 7 7 MEDICAL T VISIT CENTER 15 [facility] YAZMIN - 7 7 MEDICAL OUTPATIEN CENTER T OFFICE 20498 [place] [facility] 7 7 MED[facility] 14963 YAZMIN MCCABE [facility] OUTPATIEN 6 6 T VISIT RELIGION 10 [facility] [place] - 6 6 MEDICAL OUTPATIEN CENTER T OFFICE 91512 YAZMIN OUTPATIEN 6 6 MEDICAL T VISIT C[facility] [place] - OTHER 6 6 [facility] [place] - 6 6 MEDICAL OUTPATIEN CENTER T OFFICE 62235 [place] [facility]IEN 6 6 MEDICAL T VISIT CENTER 10 MINUTES OFFICE 12958 YAZMIN MCCABE [place] OUTPATIEN 6 6 T VISIT RELIGION 25 HOSP MINUTES [facility] [place] - 6 6 MEDICAL OUTPATIEN CENTER T [facility] [place] - 6 6 [facility] OUTPATIEN CENTER T OFFICE 19466 YAZMIN MCCABE [place] OUTPATIEN 6 6 T VISIT RELIGION 15 HOSP MINUTES OFFICE 44955 [place] [facility] 6 6 MEDICAL T VISIT CENTER 10 MINUTES [facility] [place] - 6 6 MEDICAL OUTPATIEN CENTER T OFFICE 92096 [place] MCCABE [facility] OUTPATIEN 6 6 T VISIT RELIGION 15 HOSP MINUTES OFFICE 63527 [place] [facility]EN 6 6 MEDICAL T VISIT CENTER 10 MINUTES OFFICE 15700 YAZMIN NATH OUTPATIEN 6 6 JAM T VISIT RELIGION 25 HOSP MINUTES OFFICE 43807 YAZMIN OUTPATIEN 6 6 MEDICAL T VISIT CENTER 10 MINUTES [facility] [place] - 6 6 MED[facility] OUTPATIEN CENTER T OFFICE 44697 FÉLIXGABY MCCABE CADENA OUTPATIEN 6 6 T VISIT RELIGION 15 HOSP MINUTES [facility] [place] - 6 6 MED[facility] OUTPATIEN CENTER T OFFICE 81683 [place] MCCABE [facility] OUTPATIEN 6 6 T VISIT RELIGION 15 HOSP MINUTES OFFICE 15952 YAZMIN OUTPATIEN 6 6 MEDICAL T VISIT CENTER 10 MINUTES OFFICE 47187 [place] [facility] 6 6 MEDICAL T VISIT CENTER 10 MINUTES OFFICE 03672 YAZMIN ESTELLE CADENA OUTPATIEN 6 6 T VISIT RELIGION 15 HOSP MINUTES [facility] [place] - 6 6 [facility] OUTPATIEN CENTER T OFFICE 02860 YAZMIN MCCABE CADENA OUTPATIEN 6 6 T VISIT RELIGION 15 HOSP MINUTES [facility] [place] - 6 6 MED[facility] OUTPATIEN CENTER T OFFICE 28567 YAZMIN MCCABE [place] OUTPATIEN 6 6 T VISIT RELIGION 25 HOSP MINUTES OFFICE 88504 [place] [facility] 6 6 MEDICAL T VISIT CENTER 10 MINUTES OFFICE 81389 [facility] FREDA OUTPATIEN 6 6 T VISIT 15 MINUTES OFFICE 88067 [place] [facility] 6 6 MEDICAL T VISIT CENTER 10 MINUTES [facility] [place] - 6 6 MED[facility] OUTPATIEN CENTER T OFFICE 40207 YAZMIN MCCABE [place] OUTPATIEN 5 5 T VISIT RELIGION 25 HOSP MINUTES OFFICE 46663 [place] [facility] 5 5 MEDICAL T VISIT CENTER 10 [facility]UTES [facility] [place] - 5 5 [facility] OUTPAT[facility]EN [facility] [place] - [facility] 5 [facility] OUTPAT[facility] CENTER T OFFICE 01574 [place] [facility] OUTPATIEN 5 5 MEDICAL JAM T VISIT CENTER 25 INC MINUTES [facility] [place] - 5 5 [facility] OUTPATIEN CENTER T OFFICE 39304 [place] [facility] 5 5 MEDICAL T VISIT CENTER 10 MINUTES OFFICE 15878 [place] [facility] OUTPATIEN 5 5 MEDICAL JAM T VISIT CENTER 15 INC MINUTES OFFICE 03180 [place] [facility]EN 5 5 MEDICAL T VISIT CENTER 10 MINUTES [facility] [place] - 5 5 MED[facility] OUTPATIEN CENTER T OFFICE 76045 FÉLIXGABY SHEELA RAZ OUTPATIEN 5 5 T NEW 45 RELIGION MINUTES HOSP OFFICE 45091 Y[facility] OUTPATIEN 5 5 MEDICAL T VISIT CENTER 10 MINUTES OFFICE 26184 YAZMIN CADENA OUTPATIEN 5 5 T VISIT RELIGION 25 HOSP MINUTES [facility] [place] [facility] 5 [facility] [place] [facility] 5 [facility] OUT[facility] C[facility] T OFFICE 29077 YAZMIN MCCABE CADENA OUTPATIEN 5 5 T VISIT RELIGION 25 HOSP MINUTES [facility] [place] [facility] 5 [facility] OUTPAT[facility]EN C[facility] T OFFICE 29441 [facility]ÉL[facility]QUEEN[place] OUTPATIEN 5 5 MEDICAL T VISIT CENTER 10 MINUTES OFFICE 77287 FÉLIXGABY OUTPATIEN 5 5 MEDICAL T VISIT CENTER 10 MINUTES OFFICE 15857 YAZMIN MORALES [place] OUTPATIEN 5 5 T VISIT RELIGION 25 HOSP MINUTES [facility] [place] [facility] 5 [facility] [place] - [facility] 5 [facility] OUTPAT[facility]EN CENTER T OFFICE 53404 F[facility] OUTPATIEN 5 5 MEDICAL T VISIT CENTER 10 MINUTES OFFICE 46057 YAZMIN MORALES [place] OUTPATIEN 5 5 T NEW 20 RELIGION MINUTES [facility] [place] [facility] OTHER 5 5 MEDICAL CENTER OFFICE 93969 YAZMIN PORTILLO OUTPATIEN 5 5 MEDICAL JAM T VISIT CENTER 15 INC MINUTES [facility]OSPITAL Y[facility] - OTHER 5 5 MEDICAL CENTER OFFICE 87416 YAZMIN MCCABE CADENA OUTPATIEN 5 5 T NEW 45 RELIGION MINUTES HOSP OFFICE 08547 YAZMIN PORTILLO OUTPATIEN 5 5 MEDICAL JAM T VISIT CENTER 15 INC MINUTES OFFICE 27886 YAZMIN ROBERTSOME OUTPATIEN 5 5 MEDICAL JAM T VISIT CENTER 15 INC MINUTES [facility] [place] [facility] 5 [facility] OUTPAT[facility]EN CENTER [facility] - 5 5 MEDICAL OUTPATIEN CENTER T OFFICE 61432 YAZMIN PADGETTNEY OUTPATIEN 5 5 [facility] T NEW 30 RELIGION MINUTES [facility] YAZMIN - OTHER 4 4 MEDICAL CENTER EMERGENCY 20868 CAITIE RUIZ, 0 0 EMERGENCY ZACKARY Devine [facility] SERVICES T VISIT HIGH/URGE ASSOCIATE NT S SEVERITY OFFICE 99038 WILIAN FIELD 8 8 CHANDRA ARTIS T VISIT SILVIANO SHORE 25 MINUTES
--- OUTSIDE RECORDS SUMMARY | 2017-02-23 17:33 | External Medical Summary Rpt ---
Author Author , LORNA ROTHMAN Address Unknown Phone [email or web address] ([email or web address]).[email or web address] Care Team Providers Care Cyber Engineer Name Role Phone AHMED RAZ, AHMED RAZ Unavailable Unavailable WEN FREDA, WEN FREDA Unavailable Unavailable BEINEKE, BEINEKE Unavailable Unavailable DAMICO, DAMICO Unavailable Unavailable MARIE CAM, Unavailable Unavailable MARIE CAM CHIPPS JABIER & Unavailable Unavailable DUBILIER, CHIPPS JABIER & DUBILIER KHOA-MIRANDA, Unavailable Unavailable SILVIANO, JUAN C, [facility] Unavailable Unavailable [facility] CRIS, CRIS Unavailable Unavailable [facility] Unavailable Unavailable PHYSICAL THERA, [facility] ZACKARY RUIZ, Unavailable Unavailable ZACKARY RUIZ FRYMAN Unavailable Unavailable Pedrito MCPHERSON, VIDA, Unavailable Unavailable Pedrito Forde KENTRELL, KENTRELL Unavailable Unavailable KENTRELL DEN, KENTRELL Unavailable Unavailable DEN HARPEL, HARPEL Unavailable Unavailable [facility] Un[facility] Un[facility], [facility] Unavailable Unavailable HOSPITAL P, [facility] PRO, PRO Unavailable Unavailable PRO PRO Unavailable Unavailable [facility], Unavailable Unavailable [facility] MORALES LESIA, MORALES LESIA Unavailable Unavailable ZACARIAS MOURA Unavailable Unavailable ADDY CAICEDO, Unavailable Unavailable [facility] Unavailable Unavailable [facility], [facility] ESTELLE CADENA, ESTELLE CADENA Unavailable Unavailable ALESSANDRO HEWITT Unavailable Unavailable VIJAYA LOCKWOOD JR, JR Unavailable Unavailable ABHI DE LEON, Unavailable Unavailable ABHI DE LEON MULLINS Unavailable Unavailable JIN PORTILLO, PORTILLO Unavailable Unavailable PORTILLO JAM, PORTILLO Unavailable Unavailable JAM PAVEZ, PAVEZ Unavailable Unavailable [facility] Un[facility] Unavailable [facility] Un[facility] Unavailable Unavailable [facility], [facility] Unavailable Unavailable PLL, [facility] Nilson MÁRQUEZ, Unavailable Unavailable Nilson MÁRQUEZ [facility], Unavailable Unavailable [facility], Unavailable Unavailable [facility] JC Unavailable Unavailable ANH GRIMES, ANH GRIMES Unavailable Unavailable [facility], [facility] AMILCAR BAUTISTA, AMILCAR Unavailable Unavailable [facility], Unavailable Unavailable [facility] Purpose Continuity of Care Document - 11-10-2007 through 2016 Problems Code Diagnosis DOS Provider Status [id number] MYOPIA 01-26-2017 PRO BILATERAL N6012 DIFFUSE 12-28-2016 [facility] CYSTIC [facility] MASTOPATHY INC OF LEFT BREAST N951 MENOPAUSAL 12-28-2016 [facility] CLIMACTERIC GROUP STATES R6882 DECREASED 12-28-2016 [facility] LIBIDO PHYSICIANS GROUP R928 OT ABNORM 12-28-2016 [place] [facility] INCONCLUSIV IMAGING ASS E FIND ON DX IMAG BREAST N3644 MUSCULAR 12-25-2016 [facility] DISORDERS PHYSICIANS OF URETHRA GROUP O40601 ENCOUNTER 12-04-2016 [facility] FILTER PRESS TENDER HEAD EXAM MEM HOSP GENERAL RTN INC W/O ABNORMAL FIND Z1231 ENCOUNTER 12-04-2016 [place] SCREENING MEDICAL MAMMO MALIG IMAGING ASS NEOPLASM BREAST I10 ESSENTIAL 11-30-2016 [facility] PRIMARY PHYSICIANS HYPERTENSIO GROUP N N393 STRESS 11-30-2016 [facility] INCONTINENC PHYSICIANS E FEMALE GROUP MALE N819 FEMALE 11-30-2016 [facility] GENITAL PHYSICIANS PROLAPSE GROUP UNSPECIFIED N9412 DEEP 11-30-2016 [facility] DYSPAREUNIA PHYSICIANS GROUP N952 POSTMENOPAU 11-30-2016 [facility] NICHOLAS PHYSICIANS ATROPHIC GROUP VAGINITIS R4189 OTH SX & 11-30-2016 [facility] SIGNS INVLV PHYSICIANS COGNITIVE GROUP FUNC & AWARENESS R569 UNSPECIFIED 11-30-2016 [facility] PHYSICIANS CONVULSIONS GROUP R9089 OTH 11-30-2016 [facility] ABNORMAL PHYSICIANS FIND ON DX GROUP IMAGING CNTRL NERV SYS G58261 ENCOUNTER 11-30-2016 [facility] FILTER PRESS TENDER HEAD EXAM PHYSICIANS GENERAL RTN GROUP W/ABNORMAL FIND Z1212 ENCOUNTER 11-30-2016 [facility] SCREENING PHYSICIANS MALIGNANT GROUP NEOPLASM RECTUM R220 LOCALIZED 11-12-2016 [facility] SWELLING [facility] MASS AND INC LUMP HEAD R51 HEADACHE 11-12-2016 [facility] [id number] UNSPECIFIED 11-12-2016 [place] INJURY OF MEDICAL HEAD IMAGING ASS INITIAL ENCOUNTER Z720 TOBACCO USE 11-12-2016 [facility] INC I159 SECONDARY 11-09-2016 [facility] HYPERTENSIO PHYSICIANS N GROUP UNSPECIFIED R232 FLUSHING 11-09-2016 [facility]ANS GROUP R531 WEAKNESS 11-09-2016 [facility] K45170 SLEEP 11-09-2016 [facility] DEPRIVATION PHYSICIANS GROUP K8010 CALCULUS GB 10-06-2016 [facility] W/CHRONIC JABIER & CHOLECYST DUBILIER W/O OBSTRUCTION K8020 CALCULUS GB 10-06-2016 [place] W/O MEDICAL CHOLECYSTIT IMAGING ASS IS W/O OBSTRUCTION K810 ACUTE 10-06-2016 [facility] CHOLECYSTIT ANESTH OF IS THE BLUE K828 OTHER 10-06-2016 [place] SPECIFIED MEDICAL DISEASES OF IMAGING ASS GALLBLADDER R1011 RIGHT UPPER 10-06-2016 [place] QUADRANT MEDICAL PAIN IMAGING ASS K8000 CALCULUS GB 10-05-2016 [facility] W/ACUTE [facility] P W/O OBSTRUCTION I85035 ENCOUNTER 10-05-2016 [place] FOR OTHER MEDICAL PREPROCEDUR IMAGING ASS AL EXAMINATION M899 DISORDER OF 08-05-2016 [facility]ONE [facility] UNSPECIFIED PLLC R109 UNSPECIFIED 07-23-2016 [facility] ABD[facility] PAIN CENTER G8921 CHRONIC 07-22-2016 [facility] PAIN DUE TO [facility] TRAUMA HOS[facility] T50394 PAIN IN 07-22-2016 [facility] LEFT HIP [facility] M5136 OTH 07-22-2016 [facility] INTERVERTEB [facility] RAL DISC HOSP DEGEN LUMBAR REGION I09793 PAIN IN 07-22-2016 [facility] LEFT LEG [facility] G629 POLYNEUROPA 06-22-2016 [facility] THY [facility] UNSPECIFIED HOSP M2140 FLAT FOOT 05-20-2016 [facility] PES [facility] UNSPECIFIED FOOT X43343 POSTERIOR 05-20-2016 [facility] TIBIAL MEDICAL TENDINITIS CENTER UNSPECIFIED LEG R197 DIARRHEA 05-20-2016 [facility] UNSPECIFIED MEDICAL CENTER G5600 CARPAL 04-17-2016 [facility] SYNDROME UNSPECIFIED UPPER LIMB G5603 CARPAL 04-16-2016 [facility] TUNNEL [facility] SYNDROME HOSP BILATERAL UPPER LIMBS M461 SACROILIITI 04-16-2016 [facility] S NOT [facility] ELSEWHERE HOSP CLASSIFIED M1612 UNILATERAL 04-15-2016 [facility] OSTEOARTHRI CENTER TIS LEFT HIP M1712 UNILATERAL 04-15-2016 [facility] PRIMARY RADIOLOGY OSTEOARTHRI PLLC TIS LEFT KNEE M61218 PAIN IN 04-15-2016 [facility] UNSPECIFIED RADIOLOGY ANKLE PLLC M8580 OTH SPEC 04-15-2016 [facility] D/O [facility] STRUCTURE UNS SITE M542 CERVICALGIA 02-12-2016 [facility] H[facility]P M5416 RADICULOPAT 02-10-2016 [facility] EDDY LUMBAR [facility]OS[facility] M545 LOW BACK 01-08-2016 [facility] PAIN [facility] G8929 OTHER 11-13-2015 [facility] I66147 PAIN IN 11-13-2015 [facility] SHOULDER [facility] D13539 PAIN IN 11-13-2015 [facility] Z5181 ENCOUNTER 11-13-2015 [facility] THERAPEUTIC CENTER DRUG LEVEL MONITORING 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 [facility] 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 USE MEDICAL OF OPIATE CENTER ANALGESIC T1490 INJURY 06-14-2015 [facility] UNSPECIFIED MEDICAL [facility] F92229 OTHER LONG 06-14-2015 [facility] TERM MEDICAL CURRENT CENTER DRUG THERAPY M5417 RADICULOPAT 05-21-2015 [facility] HY [facility] LUMBOSACRAL HOSP REGION M532X8 SPINAL 05-09-2015 [facility] INSTABILITI [facility] ES SAC HOSP SACROCOCCYG EAL REGION Z9889 OTHER 04-17-2015 [facility] SPECIFIED [facility] POSTPROCEDU HOSP RAL STATES N800 ENDOMETRIOS 04-16-2015 [facility] IS OF [facility] UTERUS HOSP N812 INCOMPLETE 04-16-2015 [facility] UTEROVAGINA [facility] L PROLAPSE HOSP N814 UTEROVAGINA 04-16-2015 [facility] L PROLAPSE MEDICAL UNSPECIFIED CENTER N938 OTHER SPEC 04-16-2015 [facility] ABNORMAL [facility] UTERINE & HOSP VAGINAL BLEEDING 83199 DEGEN 04-10-2015 [facility] LUMBAR/LUMB [facility] OSACRAL HOSP INTERVERTEB RAL DISC 7242 LUMBAGO 04-10-2015 [facility]P 7244 THORACIC/MANDI 04-10-2015 [facility] MBOSACRAL [facility] NEURITIS/RA HOSP DICULITIS UNSPEC 7246 DISORDERS 04-10-2015 [facility] OF SACRUM [facility] 7202 SACROILIITI 04-04-2015 [facility] S NOT [facility] ELSEWHERE HOSP CLASSIFIED 6264 IRREGULAR 03-28-2015 [facility] MENSTRUAL [facility] CYCLE HOSP 6268 OTH D/O 03-28-2015 [facility] MENSTRUATIO [facility] N&OTH ABN HOSP BLEED FE GNT TRACT 09651 DISORDER OF 02-18-2015 [facility] UNSPECIFIED 69554 HYPERTENSIO 02-18-2015 [facility] Salazar [facility] V5869 LONG-TERM 02-18-2015 [facility] (CURRENT) MEDICAL USE OF CENTER OTHER MEDICATIONS V5883 ENCOUNTER 02-18-2015 [facility] DRUG MONITORING V700 ROUTINE 02-18-2015 [facility] EXAM@HEALTH CARE FACL 45728 PAIN IN 02-11-2015 [facility] JOINT [facility] PELVIC HOSP REGION AND THIGH 7197 DIFFICULTY 02-11-2015 [facility] [place] PHYSICAL THERA 7243 SCIATICA 02-11-2015 [facility] PHYSICAL THERA 4019 UNSPECIFIED 01-14-2015 [facility] ESSENTIAL [facility] HYPERTENSIO CENTER INC N 7213 LUMBOSACRAL 01-14-2015 [facility] SPONDYLOSIS [facility] WITHOUT MYELOPATHY V725 RADIOLOGICA 01-14-2015 [facility] Ontiveros RADIOLOGY EXAMINATION PLL NEC 7245 UNSPECIFIED 12-27-2014 [facility] BACKACHE RADIOLOGY PLL 6110 INFLAMMATOR 05-30-2014 [facility] Y DISEASE MEDICAL OF [facility] 65989 UNSPECIFIED 10-17-2009 [facility] V720 EXAMINATION 10-10-2009 [facility], OF EYES ABHI G AND VISION 9594 INJURY 02-05-2009 [facility] OTHER AND RADIOLOGY UNSPECIFIED PLLC HAND EXCEPT FINGER 6202 OTHER AND 01-10-2008 [facility] UNSPECIFIED PHYS [facility] OVARIAN CHILD SUPPORT AGENT [place] CYST [facility] 6262 EXCESSIVE 01-10-2008 [facility] OR FREQUENT PHYS SVCS CHILD SUPPORT AGENT [place] MENSTRUATIO [facility] 34362 ABDOMINAL 01-08-2008 DIAGNOSTIC PAIN RIGHT [facility] QUADRANT 3671 MYOPIA 11-10-2007 COUCH-COM PTON, SILVIANO 94247 UNSPECIFIED 11-10-2007 COUCH-COM PTON, ASTIGMATISM SILVIANO Medications [...] 07 08 30 30 00 HO Ac AK 00 -1 -0 .0 00 ME ti [...] NO 00 9- 8- 06 TO ve AK 51 20 20 08 WN IL 90 [...] 06 07 30 30 00 HO Ac AK 00 -1 -1 .0 00 ME ti [...] 00 1- 3- 00 06 TO ve AK 51 20 20 08 WN IL 90 [...] 05 05 30 30 00 HO Ac AK 00 -0 -2 .0 00 ME ti [...] NO 00 1- 6- 06 TO ve AK 51 20 20 08 WN IL 90 17 17 61 -H [address] AR Z MA 20 CY -1 2. OF 5 MG CY NT TA HI B AN A LI 68 04 05 30 30 00 RI Ac SI 18 -2 -1 .0 00 TE ti NO 00 4- 9- 01 ve AK 51 20 20 17 AI IL 80 17 17 54 D -H [address] AR Z MA 10 CY -1 2. #3 5 93 MG 8 TA B BU 00 04 05 60 30 00 RI Ac AK 18 -1 -0 .0 00 TE ti [...] 1 90 PH CE AR TA MA OH CY NO PH #3 EN 93 8 5- 32 5 LI 68 03 04 30 30 00 RI Ac SI 18 -1 -1 .0 00 TE ti NO 00 9- 4- 00 01 ve AK 51 20 20 17 AI IL 80 [...] 03 04 60 30 00 RI Ac AK 18 -1 -0 .0 00 TE ti [...] 00 4- 4- 00 00 EY ve AK 51 20 20 84 IL 80 17 [...] 02 03 60 30 00 VA Ac AK 09 -1 -1 .0 00 LL ti [...] 00 3- 7- 00 00 EY ve AK 51 20 20 84 IL 80 17 [...] 01 02 60 30 00 VA Ac AK 09 -1 -0 .0 00 LL ti [...] 1 77 SC CE OU TA NT OH NO PH PH AR MA 7. CY [...] 00 3- 0- 00 00 EY ve AK 51 20 20 84 IL 80 16 [...] 12 01 60 30 00 VA Ac AK 09 -0 -0 .0 00 LL ti [...] 1 98 SC CE OU TA NT OH NO PH PH AR MA 7. CY [...] Procedure DOS Code Location Performer Comment FITTING 40075 [employer] SPECTACLE 7 S XCPT APHAKIA MONOFOCAL OPHTH 97623 [facility] MEDICAL 7 XM&EVAL COMPRE NEW PT 1/> VST THERAPEUT 49903 [facility] HARPEL IC 7 PHYSICIAN PROPHYLAC S GROUP TIC/DX INJECTION SUBQ/IM DIAGNOSTI 81280 [facility] Mann 7 MEM HOSP MEM HOS[facility] MAMMOGRAP INC INC HY COMPUTER- AIDED DETCJ UNI DIAGNOSTI G0206 [place] 7 MEDICAL MAMMOGRAP IMAGING HY INCL ASS CAD WHEN PERF; UNI MAMMO 3340F [place] [facility] 7 MEDICAL T CAT IMAGING INCOMP ASS ADDTNL IMAGE DOCD SCREENING G0202 [place] PEARL 7 MEDICAL MAMMOGRAP IMAGING HY DAYANARA ASS INCL CAD WHEN PERFORMD SCREENING 10502 [facility] QUINTERO 7 MEM HOSP MEM HOSP MAMMOGRAP INC INC HY BI 2-VIEW BREAST INC CAD INFO 7025F [place] [facility] SYSTEM 7 MEDICAL ANALYSIS IMAGING ABNORMAL ASS INTERPRAT E BLOOD 43213 [facility] OCCULT 7 PHYSICIAN PHYSICIAN PEROXIDAS S GROUP S GROUP E ACTV QUAL FECES 1-3 SPEC IADNA 52670 [facility] HARPEL NEISSERIA 7 PHYSICIAN S GROUP GONORRHOE AE DIRECT PROBE TQ CULTURE 87305 [facility] CHLAMYDIA 7 PHYSICIAN ANY S GROUP SOURCE COMPREHEN 08342 [facility] SIVE 7 MEM HOSP MEM HOSP METABOLIC INC INC PANEL COLLECTIO 81691 [facility] Salazar VENOUS 7 [facility] H[facility] BLOOD INC INC VENIPUNCT URE FINAL G9638 [place] DAMICO REPORTS 7 MEDICAL W/O DOC IMAGING 1/MORE ASS DOSE REDUCTION TECH BLOOD 93531 [facility] COUNT 7 [facility]OS[facility] COMPLETE INC INC AUTO&AUTO DIFRNTL WBC URNLS DIP 28793 [facility] QUINTERO 7 MEM [facility]OS[facility] STICK/TAB INC [place] [address] [facility] HEAD/BRAI 7 MEM HOS[facility] N W/O INC INC CONTRAST MATERIAL LAPAROSCO 82528 [facility] PY SURG 7 [facility] CHOLECYST INC INC ECTOMY ANES 72245 [facility] INTRAPERI 7 ANESTH TONEAL OF THE UPPER BLUE ABDOMEN W/LAPS NOS FINAL G9551 [facility] REPR ABD 7 MEDICAL IMAG STS IMAGING W/O ASS INCIDNT FND LES NTD: BLOOD 93915 [facility] COUNT 7 [facility] COMPLETE INC INC AUTO&[place] [address] [facility] ABDOMINAL 7 [facility] REAL INC INC TIME W/IMAGE LIMITED LEVEL III 56801 [facility] SURG 7 [facility]OS[facility] PATHOLOGY INC INC GROSS&JACE ROSCOPIC EXAM HOSPITAL G0378 [facility] OBSERVATI 7 [facility] ON INC INC SERVICE PER HOUR COLLECTIO 99478 [facility] N VENOUS 7 [facility] [place] [address] [facility] AMYLASE 7 [facility] INC INC ECG 04391 [facility] ROUTINE 7 [facility] ECG INC INC W/LEAST 12 LDS TRCG ONLY W/O I&[place] [address] [facility] LIPASE 7 [facility] INC INC COMPREHEN 64352 [facility] SIVE 7 [facility] [place] [address] [facility] ABDOMEN & 7 [facility] PELVIS INC INC W/O CONTRAST MATERIAL THER 65179 [facility] PROPH/DX 7 [facility] NJX IV INC INC PUSH SINGLE/1S T SBST/DRUG ECG 29364 [facility] LILLY JR ROUTINE 7 [facility] W/LEAST P 12 LDS I&R ONLY HOSPITAL G0378 [facility] OBSERVATI 7 [facility] ON INC INC SERVICE PER HOUR THERAPEUT 00775 [facility] IC 7 [facility] INJECTION INC INC IV PUSH EACH NEW DRUG BLOOD 84534 [facility] COUNT 7 [facility] COMPLETE INC INC AUTO&AUTO DIFRNTL WBC RADIOLOGI 77760 [facility] C EXAM 7 [facility] CHEST 2 INC INC VIEWS FRONTAL&L ATERAL URNLS DIP 80544 [facility] QUINTERO 7 [facility] STICK/TAB INC INC LET REAGENT AUTO MICROSCOP Y THER 68104 [facility] PROPH/DX 7 [facility] NJX EA INC INC SEQL IV PUSH SBST/DRUG FAC DXA BONE 38141 [facility] WARE 7 STUDY 1/> RADIOLOGY SITES PLLC AXIAL SKEL BLOOD 23477 [facility] ARCE COUNT [address] [facility] COMPLETE CENTER CENTER AUTO&AUTO DIFRNTL WBC URNLS DIP 58088 [facility] ARCE [address] [facility] STICK/TAB CENTER CENTER LET REAGENT AUTO MICROSCOP Y LIPID 38158 [facility] ARCE PANEL [address] [place] [address] COMPREHEN 04408 [facility] ARCE SIVE [address] [place] [address] METABOLIC [place] [address] Y[facility] ARCE LIPASE [address] [place] [address] [place] [address] Y[facility] ARCE AMYLASE [address] [place] [address] COLLECTIO 43888 [facility] ARCE N VENOUS [address] [place] [address] BLOOD [facility] [place] [address] Y[facility] FRANCOIS ABDOMINAL 6 MAGDALENE REAL RADIOLOGY TIME PLLC W/IMAGE DOCUMENTA TION OVA&MABEL 76541 [facility] ARCE ITES [address] [facility] DIRECT [facility] SMEARS CONCENTRA TION & ID [id number] Y[facility] ARCE NOT [address] [place] [address] OTHERWISE [facility] SPECIFIED INF AGENT 07656 Y[facility] ARCE DET [address] [facility] NUCLEIC [facility] ACID CLOSTRIDI UM AMP PROBE CUL BACT 68786 Y[facility] ARCE STOOL [address] [facility] AEROBIC [facility] ISOL SALMONELL A&SHIGELL DRUG TST G0477 Y[facility] ARCE PRESUMP;C [address] [facility] PBL BEING [facility] READ DC OPT OBV ONLY SMR PRIM 39017 [facility] ARCE SRC CPLX [address] [facility] SPEC [facility] STAIN OVA&MABEL ITS WRIST L3908 RX RX HAND 6 DISCOUNT DISCOUNT ORTHOSIS PHARMACY PHARMACY EXT CONTROL COCK-UP PREFAB RADEX HIP 94341 Y[facility] ARCE [address] [facility] UNILATERA [facility] L WITH PELVIS 2-3 VIEWS RADIOLOGI 05863 YAZMIN ARCE C [address] [place] [address] EXAMINATI [facility] ON FEMUR MINIMUM 2 VIEWS RADEX 95529 Y[facility] ARCE ANKLE [address] [facility] COMPLETE [facility] MINIMUM 3 VIEWS RADIOLOGI 37154 YAZMIN ARCE C 6 MEDICAL MEDICAL EXAMINATI CENTER CENTER ON KNEE 3 VIEWS DRUG TST G0477 Y[facility]MIN ARCE PRESUMP;C 6 [facility] MEDICAL PBL BEING CENTER CENTER READ DC OPT OBV ONLY NERVE 31381 Y[facility] CRANDALL CONDUCTIO 6 N STUDIES [facility]ISM 5-6 HOSP STUDIES RADIOLOGI 09262 YAZMIN Mann 5 MACHO EXAMINATI RADIOLOGY ON FEMUR PLLC 2 VIEWS DRUG SCR G0434 Y[facility] ARCE NOT [address] [facility] CHROMATOG CENTER CENTER RAPHIC; ANY NUMBER PT ENC THER 38524 Y[facility] ARCE PROPH/DX [address] [facility] NJX EA CENTER CENTER SEQL IV PUSH SBST/DRUG FAC POSTOP 03922 Y[facility]MIN SHAH FOLLOW UP 5 JIN VISIT [facility] RELATED HOSP TO ORIGINAL PX INFLUENZA Q2038 Y[facility] ARCE VACC [address] [facility] SPLIT [facility] VIRUS 3 YRS & > IM FLUZONE IM ADM 38800 Y[facility] ARCE PRQ ID [address] [facility] SUBQ/IM CENTER CENTER NJXS 1 VACCINE INJECTION J2270 Y[facility] ARCE MORPHINE [address] [place] [address] SULFATE [facility] UP TO 10 MG THER 33925 Y[facility] ARCE PROPH/DX [address] [facility] NJX IV CENTER CENTER PUSH SINGLE/1S T SBST/DRUG VAGINAL 24185 Y[facility] ARCE HYSTERECT [address] [facility] ANNA [facility] UTERUS 250 GM/< INJECTION J1100 Y[facility]MIN ARCE [address] [facility] DEXAMETHO CENTER [facility] SONE SODIUM PHOSPHATE 1 MG INJECTION J1170 Y[facility] ARCE [address] [place] [address] HYDROMORP CENTER CENTER JAJA UP TO 4 MG RINGERS J7120 [facility] ARCE LACTATE [address] [place] [address] INFUSION CENTER CENTER UP TO 1000 CC COLLECTIO 33118 Y[facility] ARCE N VENOUS [address] [place] [address] BLOOD [facility] VENIPUNCT URE ANESTHESI 57564 Y[facility]MIN KAMARA CORNELIO A 5 INTRAPERI [facility] TONEAL HOSP LOWER ABD W/LAPS NOS INJECTION J2405 YAZ[facility] ARCE [address] [place] [address] ONDANSETR [facility] ON HCL PER 1 MG URINE 99319 Y[facility]MIN ARCE [address] [place] [address] MEDICAL TEST CENTER CENTER VISUAL COLOR CMPRSN METHS THER 32046 Y[facility] ARCE PROPH/DX [address] [place] [address] NJX EA CENTER [facility] SEQL IV PUSH SBST/DRUG FAC INJECTION J2710 Y[facility]MIN ARCE [address] [place] [address] NEOSTIGMI [facility] NE METHYLSUL FATE UP TO 0.5 MG INJECTION J3010 YAZMIN ARCE FENTANYL [address] [place] [address] CITRATE [facility] 0.1 MG INJECTION J0690 YAZMIN ARCE [address] [place] [address] CEFAZOLIN [facility] SODIUM 500 MG INJECTION J2250 YAZMIN ARCE [address] [place] [address] MIDAZOLAM [facility] HCL PER 1 MG INJECTION J2270 YAZMIN ARCE MORPHINE [address] [place] [address] SULFATE [facility] UP TO 10 MG BLOOD 38726 YAZMIN ARCE TYPING [address] [place] [address] SEROLOGIC CENTER [facility] RH (D) [place] [address] YAZMIN ARCE SURG [address] [place] [address] PATHOLOGY CENTER [facility] G0378 YAZMIN ARCE OBSERVATI [address] [place] [address] ON [facility] SERVICE PER HOUR VAGINAL 07164 YAZMIN MORALES LESIA HYSTERECT 5 ANNA HINDUISM W/TOT/PRT HOSP L VAGINECTO MY ANTIBODY 63160 YAZMIN ARCE SCREEN [address] [place] [address] RBC EACH CENTER CENTER SERUM TECHNIQUE BLOOD 68444 YAZMIN ARCE TYPING [address] [place] [address] SEROLOGIC [facility] [place] [place] IN[place] [address] YAZMIN MCCABE CADENA JOINT 5 ARTHRGRPH HINDUISM Y&/ANES/S HOSP TEROID W/[place] [address] YAZMIN ARCE TRANSVAGI [address] [place] [address] NAL CENTER CENTER COLLECTIO 11021 YAZMIN ARCE N VENOUS [address] [place] [address] BLOOD [place] [address] YAZMIN ARCE THYROID [address] [place] [address] STIMULATI [facility] NG HORMONE TSH COMPREHEN 69335 YAZMIN ARCE SIVE [address] [facility] METABOL[facility] [place] [address] YAZMIN ARCE THYROID [address] [facility] STIMULATI CENTER CENTER NG HORMONE TSH BLOOD 17832 YAZMIN ARCE COUNT 5 [facility] MED[facility] COMPLETE [facility] CENTER AUTO&AUTO DIFRNTL WBC LIPID 30461 YAZMIN ARCE PANEL [facility] CENTER URNLS DIP 05059 YAZMIN ARCE [address] [facility] STICK/TAB CENTER CENTER LET REAGENT AUTO MICROSCOP Y COLLECTIO 09043 YAZMIN ARCE N VENOUS [address] [place] [address] BLOOD CENTER CENTER VENIPUNCT URE 25 27744 YAZMIN ARCE HYDROXY [address] [facility] INCLUDES [facility] CENTER FRACTIONS IF PERFORMED THERAPEUT 01389 [place] PX 1/> 5 [place] [facility] PHYSICAL EACH 15 THERA MIN EXERCISES APPL 42995 [place] MAR[place] MODALITY 5 [place] [facility] 1/> AREAS PHYSICAL ELEC THERA STIMJ UNATTENDE D APPL 81164 [place] [facility] MODALITY 5 [place] [facility] 1/> AREAS PHYSICAL ELEC THERA STIMJ UNATTENDE D THERAPEUT 47165 [place] PX 1/> 5 [place] [facility] PHYSICAL EACH 15 THERA MIN EXERCISES THERAPEUT 46864 [place] PX 1/> 5 [place] [facility] PHYSICAL EACH 15 THERA MIN EXERCISES E-STIM G0283 [place] MARIE 1/> AREAS 5 [place] [facility] THAN PHYSICAL WND CARE THERA PART TX PLAN E-STIM G0283 [place] MARIE 1/> AREAS 5 [place] [facility] THAN PHYSICAL WND CARE THERA PART TX PLAN MANUAL 91670 [place] MARIE THERAPY 5 [place] [facility] TQS 1/> PHYSICAL REGIONS THERA EACH 15 MINUTES THERAPEUT 63180 [place] PX 1/> 5 [place] CAM AREAS PHYSICAL EACH 15 THERA MIN EXERCISES PHYSICAL 67636 ERICKA MARIE THERAPY 5 [place] CAM EVALUATIO PHYSICAL N THERA THERAPEUT 65623 EAST MARIE IC PX 1/> 5 [place] CAM AREAS PHYSICAL EACH 15 THERA MIN EXERCISES MANUAL 79549 ERICKA MARIE THERAPY 5 [place] CAM TQS 1/> PHYSICAL REGIONS THERA EACH 15 MINUTES E-STIM [id number] ERICKA MARIE 1/> AREAS 5 [place] CAM OTH THAN PHYSICAL WND CARE THERA PART TX PLAN MRI 66927 YAZMIN PFEIFFER SPINAL 5 DEN CANAL RADIOLOGY LUMBAR PLLC W/O CONTRAST MATERIAL INJECTION [id number] YAZMIN ROBERTSOME 5 [facility] KETOROL[facility] TROMETHAM INE PER 15 MG RADEX 46970 YAZMIN ARCE SPINE [address] [facility] LUMBSCRL [facility] COMPL W/BENDING VIEWS MIN 6 RADEX HIP 17270 YAZMIN ADAMES 5 MACHO [place] RADIOLOGY L PLLC COMPLETE MINIMUM 2 VIEWS RADEX 67791 YAZMIN ADAMES SPINE 5 MACHO LUMBOSACR RADIOLOGY AL PLLC MINIMUM 4 VIEWS CUL BACT 86316 YAZMIN ARCE XCPT [address] [facility] URINE [facility] BLOOD/STO OL AEROBIC ISOL OPHTH 12921 HALEY DE LEON, MEDICAL 0 ABHI Blair XM&EVAL COMPRHNSV ESTAB PT 1/> DETERMINA 41355 HALEY DE LEON TION 0 ABHI Blair REFRACTIV E STATE RADEX 55117 YAZMIN ADAMES HAND 9 ADDY A MINIMUM 3 RADIOLOGY VIEWS [facility] 88996 Pedrito GARCIA DISCHARGE 8 PHYS [facility] D DAY CHILD SUPPORT AGENT MANAGEMEN [place] T 30 [place] MIN/< CLINIC SBSQ 64946 Pedrito GARCIA [facility] 8 PHYS [facility] D CARE/DAY CHILD SUPPORT AGENT [address] [place] [address] DIAGNOSTI RAMAKRISH ABDOMEN 8 C IMAGING Nilson CANTRELL W/CONTRAS T ASSOCIATE MATERIAL S CT PELVIS 01813 DIAGNOSTI RAMAKRISH 8 C IMAGING Nilson CANTRELL W/CONTRAS T ASSOCIATE MATERIAL S Encounters Encounter Start End Date Code Location Performer Type Date HOSPITAL INGRID - Gera 7 [facility] T OFFICE 38325 [facility] OUTPATIEN 7 7 PHYSICIAN T VISIT S GROUP 25 MINUTES OFFICE 05990 [facility] OUTPATIEN 7 7 PHYSICIAN T VISIT S GROUP 15 MINUTES [facility]OSPITAL [facility] - 7 7 [facility] OUTPATIEN INC T OFFICE 08034 [facility] OUTPATIEN 7 7 PHYSICIAN T NEW 45 S GROUP MINUTES INITIAL 92145 [facility] PREVENTIV 7 7 PHYSICIAN E S GROUP MEDICINE NEW PATIENT [id number] EMERGENCY 03480 IN[facility] 7 7 [facility] DEPARTMEN INC T VISIT MODERATE SEVERITY [facility] - 7 7 [facility] OUTPATIEN INC T OFFICE 05333 [facility] OUTPATIEN 7 7 PHYSICIAN T NEW 10 S GROUP MINUTES HOSPITAL INGR[facility] - 7 7 [facility] OUTPATIEN INC T EMERGENCY 99937 [facility] DEPT 7 7 [facility] VISIT INC HIGH SEVERITY& THREAT [facility] YAZMIN - OTHER 7 7 MEDICAL CENTER OFFICE 49228 YAZMIN ROBERTSOME OUTPATIEN 7 7 MEDICAL T VISIT CENTER 15 [facility] YAZMIN - 7 7 MEDICAL OUTPATIEN CENTER T OFFICE 74588 [place] [facility] 7 7 [facility] T [facility] 10 [facility] OFFICE 51275 YAZMIN MCCABE [place] OUT[facility]EN 6 6 T VISIT HINDUISM 10 [facility] [place] - 6 6 [facility] OUT[facility] C[facility] T OFFICE 11699 [facility] OUTPATIEN 6 6 MEDICAL T VIS[facility] C[facility] 10 [facility] [place] - OTHER 6 6 [facility] [place] - 6 6 MED[facility] OUTPAT[facility]EN CENTER T OFFICE 35919 [place] [facility] 6 6 MEDICAL T VISIT CENTER 10 MINUTES OFFICE 54970 YAZMIN MCCABE [place] OUTPATIEN 6 6 T VISIT HINDUISM 25 HOSP MINUTES [facility] [place] - 6 6 [facility] T [facility] [place] - [facility] 6 [facility] T OFFICE 78524 YAZMIN MCCABE [place] OUTPATIEN 6 6 T VISIT HINDUISM 15 HOSP MINUTES OFFICE 38444 [place] [facility] 6 6 [facility] 10 MINUTES [facility] [place] - [facility] 6 [facility] T OFFICE 43736 [place] MCCABE [place] OUTPATIEN 6 6 T VISIT HINDUISM 15 HOSP MINUTES OFFICE 77841 [place] [facility] 6 6 [facility] T [facility] 10 MINUTES OFFICE 03638 YAZMIN NATH OUTPATIEN 6 6 JAM T VISIT HINDUISM 25 HOSP MINUTES OFFICE 04616 [facility] OUTPATIEN 6 6 [facility] T [facility] 10 MINUTES [facility] [place] [facility] T OFFICE 90728 FÉLIXGABY MCCABE [place] OUTPATIEN 6 6 T VISIT HINDUISM 15 HOSP MINUTES [facility] [place] - [facility] T OFFICE 34178 [place] MCCABE [place] OUTPATIEN 6 6 T VISIT HINDUISM 15 HOSP MINUTES OFFICE 94189 [facility] OUTPATIEN 6 6 [facility] T V[facility]ENTER 10 MINUTES OFFICE 64301 [place] [facility] 6 6 [facility] T [facility] 10 MINUTES OFFICE 29567 YAZMIN ESTELLE [place] OUTPATIEN 6 6 T VISIT HINDUISM 15 HOSP MINUTES [facility] [place] - [facility] T OFFICE 20681 YAZMIN MCCABE [place] OUTPATIEN 6 6 T VISIT HINDUISM 15 HOSP MINUTES [facility] [place] [facility] 6 [facility] T OFFICE 89280 YAZMIN MCCABE [place] OUTPATIEN 6 6 T VISIT HINDUISM 25 HOSP MINUTES OFFICE 46726 [place] [facility] 6 6 [facility] T [facility] 10 MINUTES OFFICE 09560 BETTYE HE FREDA OUTPATIEN 6 6 T VISIT 15 MINUTES OFFICE 40211 [place] [facility] 6 6 [facility] T [facility] 10 MINUTES [facility] [place] - [facility] T OFFICE 46011 YAZMIN MCCABE [place] OUTPATIEN 5 5 T VISIT HINDUISM 25 HOSP MINUTES OFFICE 03997 [place] [facility] 5 5 [facility] T [facility] 10 [facility]UTES [facility] [place] [facility] 5 [facility] [place] [facility] 5 [facility] T OFFICE 46837 [place] [facility] OUTPATIEN 5 5 [facility]ICAL J[facility] T VISIT C[facility] 25 INC MINUTES [facility] [place] - [facility] 5 [facility] T OFFICE 95227 [place] [facility] 5 5 [facility] T [facility] 10 MINUTES OFFICE 51040 [place] [facility] OUTPATIEN 5 5 [facility] T VISIT CENTER 15 INC MINUTES OFFICE 15276 [place] [facility] 5 5 [facility] 10 MINUTES [facility] [place] - [facility] 5 [facility] T OFFICE 80705 FÉLIXGABY SHEELA RAZ OUTPATIEN 5 5 T NEW 45 HINDUISM MINUTES HOSP OFFICE 59900 Y[facility] OUTPATIEN 5 5 MEDICAL T VISIT CENTER 10 MINUTES OFFICE 72779 YAZMIN [place] OUTPATIEN 5 5 T VISIT HINDUISM 25 HOSP MINUTES [facility] [place] [facility] [place] [facility] T OFFICE 49870 YAZMIN MCCABE [place] OUTPATIEN 5 5 T VISIT HINDUISM 25 HOSP MINUTES [facility] [place] [facility] T OFFICE 94309 [facility] OUTPATIEN 5 5 MEDICAL T VISIT CENTER 10 MINUTES OFFICE 76155 FÉLIXGAB[place] OUTPATIEN 5 5 MEDICAL T VISIT CENTER 10 MINUTES OFFICE 96100 YAZMIN MORALES [place] OUTPATIEN 5 5 T VISIT HINDUISM 25 HOSP MINUTES [facility] [place] [facility] [place] [facility] T OFFICE 46596 [facility] OUTPATIEN 5 5 MED[facility] T VIS[facility] CENTER 10 MINUTES OFFICE 46878 YAZMIN MORALES [place] OUTPATIEN 5 5 T NEW 20 HINDUISM MINUTES [facility] [place] [facility] OTHER 5 5 [facility] CENTER OFFICE 25336 YAZMIN PORTILLO OUTPATIEN 5 5 [facility] 15 INC MINUTES [facility] - OTHER 5 5 MEDICAL CENTER OFFICE 91093 YAZMIN MCCABE [place] OUTPATIEN 5 5 T NEW 45 HINDUISM MINUTES HOSP OFFICE 29007 YAZMIN PORTILLO OUTPATIEN 5 5 [facility] 15 INC MINUTES OFFICE 39546 YAZMIN ROBERTSOME OUTPATIEN 5 5 [facility] 15 INC MINUTES [facility] [place] [facility] [place] [facility] 5 5 [facility]ENTER T OFFICE 45941 YAZMIN PADGETTNEY OUTPATIEN 5 5 [facility] T NEW 30 HINDUISM MINUTES [facility] YAZMIN - OTHER 4 4 MEDICAL CENTER EMERGENCY 67402 CAITIE RUIZ, 0 0 EMERGENCY ZACKARY Devine [facility] T VISIT HIGH/URGE ASSOCIATE NT S SEVERITY OFFICE 88947 WILIAN FIELD 8 8 CHANDRA ARTIS T VISIT SILVIANO SHORE 25 MINUTES
--- OUTSIDE RECORDS SUMMARY | 2017-02-23 17:34 | External Medical Summary Rpt ---
Demographics Preferred Language Indonesian Marital Status Unknown Presybeterian Affiliation Unknown Race Unknown Ethnic Group Unknown Author Author LORNA Address Unknown Phone Immunization No patient found.
--- OUTSIDE RECORDS SUMMARY | 2017-02-23 17:34 | External Medical Summary Rpt ---
Demographics Preferred Language Icelandic Marital Status Unknown Mosque Affiliation Unknown Race Unknown Ethnic Group Unknown Author Author LORNA Address Unknown Phone Immunization No patient found.
--- OUTSIDE RECORDS SUMMARY | 2017-02-23 17:35 | External Medical Summary Rpt ---
Author Author [employer], [employer] Organization [employer] Address Unknown Phone Unavailable Results Comprehensive metabolic 2000 panel in Serum or Plasma Observa Value Referen Units Interpr Notes Date tion ce etation Range Albumin/G 1.1 - 1.8 No Normal No Feb 22 lobulin informati informati 2016 7:37 [Mass on in on in PM ratio] in source source Serum or data data Plasma Albumin 3.4 - 5.0 gm/dL Normal No Feb 22 [Mass/vol informati 2016 7:37 ume] in on in PM Serum or source Plasma data Alkaline 46 - 116 U/L Normal No Feb 22 phosphata informati 2016 7:37 se on in PM [Enzymati source c data activity/ volume] in Serum or Plasma Bilirubin 0.2 - 1.0 mg/dL Normal No Feb 22 .total informati 2016 7:37 [Mass/vol on in PM ume] in source Serum or data Plasma Urea 7 - 18 mg/dL Normal No Feb 22 nitrogen informati 2016 7:37 [Mass/vol on in PM ume] in source Serum or data Plasma Calcium 8.5 - mg/dL Normal No Feb 22 [Mass/vol 10.1 informati 2016 7:37 ume] in on in PM Serum or source Plasma data Chloride 98 - 107 mmoL/L Normal No Feb 22 [Moles/vo informati 2016 7:37 lume] in on in PM Serum or source Plasma data Carbon 21.0 - mmoL/L Normal No Feb 22 dioxide, 32.0 informati 2017 7:37 total on in PM [Moles/vo source lume] in data Serum or Plasma Creatinin 0.55 - mg/dL Normal No Feb 22 e 1.02 informati 2017 7:37 [Mass/vol on in PM ume] in source Serum or data Plasma Creatinin 50 - 200 ML/MIN Normal No Feb 22 e renal informati 2017 7:37 clearance on in PM source predicted data by Cockcroft -Gault formula Estimated 59- ML/MIN No REFERENCE Feb 22 informati RANGE: 2017 7:37 glomerula on in >60 PM r source ML/MIN/1. filtratio data 73 SQUARE n rate METERSIf (GF this patient is -A merican, then multiply theresult by 1.210. Globulin 1.3 - 3.2 gm/dL High No Feb 22 [Mass/vol informati 2016 7:37 ume] in on in PM Serum source data Glucose 74 - 106 mg/dL Normal No Feb 22 [Mass/vol informati 2016 7:37 ume] in on in PM Serum or source Plasma data Potassium 3.5 - 5.1 mmoL/L Low No Feb 22 informati 2016 7:37 [Moles/vo on in PM lume] in source Serum or data Plasma Sodium 136 - 145 mmoL/L Normal No Feb 22 [Moles/vo ati 2016 7:37 lume] in on in PM Serum or source Plasma data Aspartate 15 - 37 U/L Normal No Feb 22 inform2016 7:37 aminotran on in PM sferase source [Enzymati data c activity/ volume] in Serum or Plasma Alanine 12 - 78 U/L Normal Feb 22 aminotran informati 2016 7:37 sferase on in PM [Enzymati source c data activity/ volume] in Serum or Plasma Protein 6.4 - 8.2 gm/dL Normal Feb 22 [Mass/vol informati 2016 7:37 ume] in on in PM Serum or source Plasma data CBC W Auto Differential panel in Blood Observa Value Referen Units Interpr Notes Date tion ce etation Range Basophils 0 - 0.2 K/MM3 Normal No Feb 22 informati 2016 7:37 [#/volume on in PM ] in source Blood by data Automated count Basophils 0.1 - 2.0 % Normal No Feb 22 informati 2016 7:37 leukocyte on in PM s in source Blood by data Automated count Eosinophi 0.0 - 0.4 K/mm3 Normal No Feb 22 ls informati 2016 7:37 [#/volume on in PM ] in source Blood by data Automated count Eosinophi 0.1 - % Normal No Feb 22 ls/100 12.0 informati 2016 7:37 leukocyte on in PM s in source Blood by data Automated count Granulocy 1.8 - 7.8 K/mm3 Normal No Feb 22 josephine informati 2016 7:37 [#/volume on in PM ] in source Blood by data Automated count Granulocy 37.0 - % Normal No Feb 22 josephine/100 80.0 informati 2016 7:37 leukocyte on in PM s in source Blood by data Automated count Hematocri 37.0 - % High No Feb 22 t [Volume 47.0 informati 2016 7:37 on in PM Fraction] source of Blood data Hemoglobi 12.2 - g/dL No No Feb 22 n 16.2 informati informati 2016 7:37 [Mass/vol on in on in PM ume] in source source Blood data data Lymphocyt 0.7 - 4.5 K/mm3 Normal No Feb 22 es informati 2016 7:37 [#/volume on in PM ] in source Unspecifi data ed specimen by Automated count Lymphocyt 10 - 50.0 % Normal No Feb 22 es informati 2016 7:37 [#/volume on in PM ] in source Unspecifi data ed specimen by Automated count Erythrocy 27 - 31.2 pg High No Feb 22 te mean informati 2016 7:37 corpuscul on in PM ar source hemoglobi data n [Entitic mass] Erythrocy 31.8 - g/dl Normal No Feb 22 te mean 35.4 informati 2016 7:37 corpuscul on in PM ar source hemoglobi data n concentra tion [Mass/vol ume] by Automated count Erythrocy 82.2 - fl Normal No Feb 22 te mean 97.8 informati 2016 7:37 corpuscul on in PM ar volume source [Entitic data volume] by Automated count Monocytes 0.1 - 1.0 K/mm3 Normal No Feb 22 informati 2016 7:37 [#/volume on in PM ] in source Blood by data Automated count Monocytes 1.7 - 9.3 % Normal No Feb 22 / informati 2016 7:37 leukocyte on in PM s in source Blood by data Automated count Platelet 7.4 - fl Normal No Feb 22 mean 10.4 informati 2016 7:37 volume on in PM [Entitic source volume] data in Blood by Automated count Platelets 142 - 424 K/mm3 Normal No Feb 22 informati 2016 7:37 [#/volume on in PM ] in source Blood data Erythrocy 4.2 - 5.4 M/mm3 Normal No Feb 22 josephine informati 2016 7:37 [#/volume on in PM ] in source Amniotic data fluid Erythrocy 11.5 - % Normal No Feb 22 te 17.5 informati 2016 7:37 distribut on in PM ion width source [Entitic data volume] by Automated count Leukocyte 4.8 - K/MM3 Normal No Feb 22 s 10.8 ati 2016 7:37 [#/volume on in PM ] in source Blood data BD Bone Density DEXA Axial Skeleton Observa Value Referen Units Interpr Notes Date tion ce etation Range \\.br\\ No No No No Aug 05 informa informa informa a 2016 tion in tion in tion in ti in 1:24 PM BMD source source source source data data data data Z-score T-score Classif ication \\.br\\\\. br\\ (gm/cm )\\ .br\\\\.b r\\AP Spine (L1-L4) 1.074 0.5 0.2 NORMAL\\ .br\\\\.b r\\ Total 0.898 -0.2 -0.4 NORMAL\\ .br\\\\.b r\\ Neck 0.888 0.6 0.3\\.br \\\\.br\\ Troch. 0.649 -0.4 -0.5\\.b r\\\\.br\\ Change from prior scan of : L1-L4 %\\.br\\\\ .br\\ Femur %\\.br\\\\ .br\\Spi ne g/cm \\.br \\\\.br\\H ip g/cm \\.br \\\\.br\\G ENERAL INFORMA TI:\\. br\\\\.br \\ From the Nationa l Osteopo rosis Foundat ion \\.br \\\\.br\\D efining Osteopo rosis by BMD\\.br \\\\.br\\T he World [employer] Organ[employer] ation has establi shed the followi ng definit ions based on bone mass measure ment at the spine, hip, or wrist in white postmen opausal women:\\ .br\\\\.b r\\Carolee l: BMD is within 1 SD of a "young normal" adult (T-scor e at -1.0 and above)\\ .br\\\\.b r\\Low bone mass (osteop enia): BMD is between 1 and 2.5 SD below that of a "young normal" adult (T-scor e between -1 and -2.5)\\. br\\\\.br \\Osteop orosis: BMD is 2.5 SD or more below that of a "young normal" adult (T-scor e at or below -2.5). Women in this group who have already experie nced one or more fractur es are deemed to have severe or "establ ished" osteopo rosis.\\ .br\\\\.b r\\Altho ugh these definit ions are necessa ry to establi sh the prevale nce of osteopo rosis, they should not be used as the sole determi nant of treatme nt decisio ns.\\.br \\\\.br\\1 . The densito metry reports also provide "Z" scores, which represe nt the standar d deviati ons (S.D.) from age and sex-mat ched control subject s.\\.br\\ \\.br\\2. The Z score can provide useful diagnos tic informa tion because a Z score of -2 or greater below the age and sex-mat ched control may suggest a seconda ry cause of osteopo rosis.\\ .br\\\\.b r\\3. For each 10% decreas e in BMD, the fractur e risk approxi mately doubles .\\.br\\\\ .br\\ END OF REPORT* *\\.br\\\\ .br\\Den nis Richard Pfeiffer\\.b r\\\\.br\\ Dictate d: 08/06/19\\.br\\ \\.br\\Tr anscrib ed: 08/06/19 17 11:04 AM\\.br\\ \\.br\\ * Final Report \\.br \\\\.br\\D ictated : SRIKANTH PFEIFFER M.D.\\.b r\\\\.br\\ Transcr ibed by: EUSEBIO 11:05 am\\.br\\ \\.br\\Au thentic ated by: SRIKANTH PFEIFFER M.D. 11:14 am\\.br\\ \\.br\\ LDL Observa Value Referen Units Interpr Notes Date tion ce etation Range Cholest 78.0 0.0 - No No OPTIMAL Jul 23 alf in 100.0 informa informa - < 2017 LDL tion in tion in 100 12:40 [Mass/v source source MG/DLNE PM olume] data data AR in OPTIMAL Serum / or ABOVE Plasma OPTIMAL by - < calcula 130 tion MG/DLBO RDERLIN E HIGH - 130-159 MG/DLHI GH - 160-189 MG/DLVE RY HIGH - > 189 MG/DL GLOMELULAR JANES. RATE,CALC. Observa Value Referen Units Interpr Notes Date tion ce etation Range Glomeru 79.5 60.0 - ml/min No THE Jul 23 lar 200.0 informa eGFR IS 2017 filtrat tion in AN 12:40 ion source ESTIMAT PM rate/1. data ED 73 sq M GLOMELU LAR predict FILTRAT ed ION among RATEBAS non-rimma ED ON cks by AN Creatin AVERAGE ine-bas BODY ed SURFACE formula AREA (MDRD) OF 1.73M2. THIS CALCULA TION IS NOT ACCURAT E FOR PEDIATR IC PATIENT S,PATIE NTS >70 YEARS OF AGE,OR PATIENT S WITH EXTREME BODY SIZE.>6 0 ML/MIN/ 1.73M2 = NORMAL< 60 ML/MIN/ 1.73M2 = CHRONIC KIDNEY DISEASE <15 ML/MIN/ 1.73M2 = KIDNEY FAILURE AVERAGE EGFR FOLLOWS :AGE(YE ARS) AVERAGE EGFR20- 39 116 ML/MIN3 0-39 107 ML/MIN4 0-49 99 ML/MIN5 0-59 93 ML/MIN6 0-69 85 ML/MIN LIPID PROFILE Observa Value Referen Units Interpr Notes Date tion ce etation Range Triglyc 145 30 - MG/DL No NORMAL Jul 23 eride 200 informa <150 2016 [Mass/v tion in MG/DLBO 12:40 olume] source RDER PM in data HIGH Serum 150 - or 199 Plasma MG/DLHI GH >200 MG/DL Cholest 158 <200 MG/DL No No Jul 23 alf informa informa 2016 [Mass/v tion in tion in 12:40 olume] source source PM in data data Serum or Plasma Cholest 51 39 - 60 MG/DL No No Jul 23 alf in informa informa 2017 HDL tion in tion in 12:40 [Mass/v source source PM olume] data data in Serum or Plasma TOT. 3.1 No No No RISK OF Jul 23 CHOL / informa informa informa CHD 2017 HDL tion in tion in tion in 12:40 RATIO source source source PM data data data MALE FEMALE- ------- ---- ------- ------- -1/2 AVERAGE RISK 3.4 3.3AVER AGE RISK 5.0 4.42 X AVERAGE RISK 9.6 7.13 X AVERAGE RISK 23.4 11.0 AMYLASE Observa Value Referen Units Interpr Notes Date tion ce etation Range Amylase 25 25 - U/L No No Jul 23 115 informa informa 2016 [Enzyma tion in tion in 12:40 tic source source PM activit data data y/volum e] in Serum or Plasma LIPASE Observa Value Referen Units Interpr Notes Date tion ce etation Range Lipase 171 73 - U/L No No Jul 23 [Enzyma 393 informa informa 2017 tic tion in tion in 12:40 activit source source PM y/volum data data e] in Serum or Plasma COMP. METABOLIC PANEL (CHEM 12) Observa Value Referen Units Interpr Notes Date tion ce etation Range Glucose 71 70 - MG/DL No No Jul 23 110 informa informa 2016 [Mass/v tion in tion in 12:40 olume] source source PM in data data Serum or Plasma Urea 12 7 - 18 MG/DL No No Jul 23 nitroge informa informa 2016 n tion in tion in 12:40 [Mass/v source source PM olume] data data in Serum or Plasma Sodium 139 133 - mmol/L No No Jul 23 [Moles/ 144 informa informa 2017 volume] tion in tion in 12:40 in source source PM Serum data data or Plasma Potassi 3.2 3.6 - mmol/l Low No Jul 23 um 5.2 informa 2016 [Moles/ tion in 12:40 volume] source PM in data Serum or Plasma Chlorid 98 98 - mmol/l No No Jul 23 e 107 informa informa 2016 [Moles/ tion in tion in 12:40 volume] source source PM in data data Blood Carbon 35 21 - 32 mmol/L High No Jul 23 dioxide informa 2016 , total tion in 12:40 source PM [Moles/ data volume] in Serum or Plasma Creatin 0.80 0.60 - MG/DL No No Jul 23 ine 1.30 informa informa 2017 [Mass/v tion in tion in 12:40 olume] source source PM in data data Serum or Plasma Protein 7.1 6.4 - G/DL No No Jul 23 8.4 informa informa 2017 [Mass/v tion in tion in 12:40 olume] source source PM in data data Serum or Plasma Albumin 3.8 3.4 - G/DL No No Jul 23 5.0 informa informa 2016 [Mass/v tion in tion in 12:40 olume] source source PM in data data Serum or Plasma Globuli 3.3 2.4 - G/DL No No Jul 23 n 4.8 informa informa 2016 [Mass/v tion in tion in 12:40 olume] source source PM in data data Plasma Albumin 1.2 0.6 - No No No Jul 23 /Globul 1.6 informa informa informa 2017 in tion in tion in tion in 12:40 [Mass source source source PM ratio] data data data in Serum or Plasma Calcium 9.1 8.5 - MG/DL No No Jul 23 10.1 informa informa 2016 [Mass/v tion in tion in 12:40 olume] source source PM in data data Serum or Plasma Alkalin 60 45 - U/L No No Jul 23 e 117 informa informa 2017 phospha tion in tion in 12:40 tase source source PM [Enzyma data data tic activit y/volum e] in Serum or Plasma Asparta 9 15 - 37 U/L Low No Jul 23 te informa 2017 aminotr tion in 12:40 ansfera source PM se data [Enzyma tic activit y/volum e] in Serum or Plasma Alanine 23 12 - 78 U/L No No Jul 23 informa informa 2017 aminotr tion in tion in 12:40 ansfera source source PM se data data [Enzyma tic activit y/volum e] in Serum or Plasma Bilirub 0.40 0.00 - MG/DL No No Jul 23 in.tota 1.00 informa informa 2017 l tion in tion in 12:40 [Mass/v source source PM olume] data data in Serum or Plasma CBC\\T\\AUTO DIFF Observa Value Referen Units Interpr Notes Date tion ce etation Range Leukocy 11.3 3.0 - K/UL No No Jul 23 josephine 11.3 informa informa 2016 [#/volu tion in tion in 12:40 me] in source source PM Blood data data by Automat ed count Erythro 4.860 3.450 - M/ul No No Jul 23 cytes 5.400 informa informa 2016 [#/volu tion in tion in 12:40 me] in source source PM Blood data data by Automat ed count Hemoglo 15.8 10.0 - gm/dl No No Jul 23 bin 16.0 informa informa 2016 [Mass/v tion in tion in 12:40 olume] source source PM in data data Blood Hematoc 47.0 29.9 - % High No Jul 23 rit 45.5 informa 2016 [Volume tion in 12:40 source PM Fractio data n] of Blood by Automat ed count Erythro 96.7 78.2 - fl No No Jul 23 cyte 101.8 informa informa 2017 mean tion in tion in 12:40 corpusc source source PM ular data data volume [Entiti c volume] by Automat ed count Erythro 32.5 26.4 - pg No No Jul 23 cyte 33.3 informa informa 2017 mean tion in tion in 12:40 corpusc source source PM ular data data hemoglo bin [Entiti c mass] by Automat ed count Erythro 33.6 32.5 - g/dl No No Jul 23 cyte 35.3 informa informa 2017 mean tion in tion in 12:40 corpusc source source PM ular data data hemoglo bin concent ration [Mass/v olume] by Automat ed count Erythro 13.4 10.1 - % No No Jul 23 cyte 16.2 informa informa 2017 distrib tion in tion in 12:40 ution source source PM width data data [Ratio] by Automat ed count Platele 186 122 - K/UL No No Jul 23 ts 454 informa informa 2016 [#/volu tion in tion in 12:40 me] in source source PM Blood data data by Automat ed count Platele 11.6 6.4 - fl High No Jul 23 t mean 10.4 informa 2017 volume tion in 12:40 [Entiti source PM c data volume] in Blood by Automat ed count Neutrop 53.9 43.0 - % No No Jul 23 hils/ 83.0 informa informa 2017 0 tion in tion in 12:40 leukocy source source PM josephine in data data Blood by Automat ed count Lymphoc 37.9 10.0 - % No No Jul 23 ytes/10 42.0 informa informa 2017 0 tion in tion in 12:40 leukocy source source PM josephine in data data Blood by Automat ed count Monocyt 5.0 1.0 - % No No Jul 23 es/100 14.0 informa informa 2016 leukocy tion in tion in 12:40 josephine in source source PM Blood data data by Automat ed count Eosinop 2.6 0.0 - % No No Jul 23 hils/ 9.0 informa informa 2017 0 tion in tion in 12:40 leukocy source source PM josephine in data data Blood by Automat ed count Basophi 0.6 0.0 - % No No Jul 23 ls/100 2.0 informa informa 2017 leukocy tion in tion in 12:40 josephine in source source PM Blood data data by Automat ed count Neutrop 6.1 2.7 - K/ul No No Jul 23 hils 6.9 informa informa 2016 [#/volu tion in tion in 12:40 me] in source source PM Blood data data by Automat ed count Lymphoc 4.3 0.4 - K/ul High No Jul 23 ytes 3.9 informa 2016 [#/volu tion in 12:40 me] in source PM Blood data by Automat ed count Monocyt 0.6 0.2 - K/ul No No Jul 23 es 0.6 informa informa 2016 [#/volu tion in tion in 12:40 me] in source source PM Blood data data by Automat ed count Eosinop 0.3 0.0 - K/ul No No Jul 23 hils 0.9 informa informa 2017 [#/volu tion in tion in 12:40 me] in source source PM Blood data data by Automat ed count Basophi 0.1 0.0 - K/ul No No Jul 23 ls 0.2 informa informa 2017 [#/volu tion in tion in 12:40 me] in source source PM Blood data data by Automat ed count URINALYSIS COMPLETE Observa Value Referen Units Interpr Notes Date tion ce etation Range Color YELLOW No No No No Jul 23 of informa informa informa informa 2017 Urine tion in tion in tion in tion in 12:20 source source source source PM data data data data Clarity CLEAR No No No No Jul 23 of informa informa informa informa 2017 Urine tion in tion in tion in tion in 12:20 source source source source PM data data data data Glucose NEGATIV NEGATIV MG/DL No No Jul 23 E E informa informa 2016 [Presen tion in tion in 12:20 ce] in source source PM Urine data data by Automat ed test strip Bilirub NEGATIV NEGATIV No No No Jul 23 in E E informa informa informa 2016 [Presen tion in tion in tion in 12:20 ce] in source source source PM Urine data data data by Automat ed test strip Ketones NEGATIV NEGATIV MG/DL No No Jul 23 E E informa informa 2016 [Presen tion in tion in 12:20 ce] in source source PM Urine data data by Automat ed test strip Specifi 1.017 1.006 - No No No Jul 23 c 1.035 informa informa informa 2016 gravity tion in tion in tion in 12:20 of source source source PM Urine data data data by Automat ed test strip Erythro NEGATIV NEGATIV No No No Jul 23 cytes E E informa informa informa 2016 [Presen tion in tion in tion in 12:20 ce] in source source source PM Urine data data data by Automat ed pH of 5.5 5.0 - No No No Jul 23 Urine 9.0 informa informa informa 2017 by tion in tion in tion in 12:20 Automat source source source PM ed test data data data strip Protein NEGATIV NEGATIV MG/DL No No Jul 23 E E informa informa 2016 [Presen tion in tion in 12:20 ce] in source source PM Urine data data by Automat ed test strip UROBILI 1.0 0.2 - E.U./DL No No Jul 23 NOGEN 1.0 informa informa 2016 tion in tion in 12:20 source source PM data data Nitrate NEGATIV NEGATIV No No No Jul 23 E E informa informa informa 2016 [Presen tion in tion in tion in 12:20 ce] in source source source PM Urine data data data Leukocy NEGATIV NEGATIV No No No Jul 23 josephine E E informa informa informa 2016 [Presen tion in tion in tion in 12:20 ce] in source source source PM Urine data data data by Automat ed UA, MICROSCOPIC REVIEW Observa Value Referen Units Interpr Notes Date tion ce etation Range Erythro OCC 0 - 5 HPF No No Jul 23 cytes informa informa 2016 [#/area tion in tion in 12:20 ] in source source PM Urine data data sedimen t by Microsc opy high power field WBC OCC 0 - 5 HPF No No Jul 23 informa informa 2017 tion in tion in 12:20 source source PM data data Epithel RARE No HPF No No Jul 23 ial informa informa informa 2017 cells tion in tion in tion in 12:20 [Presen source source source PM ce] in data data data Urine sedimen t by Light microsc opy US Abdomen Complete Observa Value Referen Units Interpr Notes Date tion ce etation Range \\.br\\CO No No No No Jun 11 MPLETE informa informa informa informa 2016 ABDOMIN tion in tion in tion in tion in 2:31 PM AL source source source source ULTRASO data data data data UND\\.br \\\\.br\\C OMPARIS ON: None\\.b r\\\\.br\\ No focal hepatic mass lesion. No intrahe patic biliary ductal dilatat ion. Portal vein is patent with appropr iate flow directi onality .\\.br\\\\ .br\\The re are multipl e gallsto judson visuali zed within the gallbla dder. Largest measure s approxi mately 2 cm. There is no signifi cant gallbla dder wall thicken ing. No pericho lecysti c fluid. Negativ e sonogra phic Robles' s sign. The common duct is within the upper limits of normal at 7 mm.\\.br \\\\.br\\T he right kidney measure s 10.7 cm in length. The left kidney measure s 11.6 cm in length. No contour deformi ng renal mass. No hydrone phrosis .\\.br\\\\ .br\\The spleen is normal in size measuri ng 11.2 cm in length. \\.br\\\\. br\\ IMPRESS ION: Choleli thiasis with no sonogra phic evidenc e of acute cholecy stitis. \\.br\\\\. br\\ END OF REPORT* *\\.br\\\\ .br\\Maurilio shalom Brown M.D.\\.b r\\\\.br\\ Dictate d: 06/11/20 16 2:45 PM\\.br\\ \\.br\\Tr anscrib ed: 06/11/20 16 3:23 PM\\.br\\ \\.br\\ * Final Report \\.br \\\\.br\\D ictated : Shekhar Brown 2:45 pm\\.br\\ \\.br\\Tr anscrib ed by: AH 3:26 pm\\.br\\ \\.br\\Au thentic ated by: Shekhar Brown 12:49 pm\\.br\\ \\.br\\ STOOL CULTURE Observa Value Referen Units Interpr Notes Date tion ce etation Range Bacteri NO No No No No May 9 a SALMONE informa informa informa informa 2016 identif LLA, tion in tion in tion in tion in 8:30 AM ied in SHIGELL source source source source Stool A, OR data data data data by YERSINI Culture A ISOLATE D. Bacteri Unable No No No No May 9 a to informa informa informa informa 2016 identif perform tion in tion in tion in tion in 8:30 AM ied in source source source source Stool testing data data data data by for Culture Shigato ramila produci ng Bacteri Escheri No No No No Nov 9 a león informa informa informa informa 2016 identif coli tion in tion in tion in tion in 8:30 AM ied in (entero source source source source Stool hemorrh data data data data by agic Culture Ecoli-E BENJI) due to Bacteri lack of No No No ORDER#: Nov 9 a growth informa informa informa 2016 identif in tion in tion in tion in [id number] 8:30 AM ied in gram source source source 9 Stool negativ data data data by e Culture enrichm ent ORDERED broth. BY: DEVANG NATH URCE: STOOL/F ECES COLLECT ED: 6 08:30AN CUAUHTEMOC CS AT [facility].: RECEIVE D : 6 12:35ST OOL CULTURE FINAL 6 08:271 NO SALMONE LLA, SHIGELL A, OR YERSINI A ISOLATE D.Unabl e to perform testing for Shigato ramila produci ngEsche richia coli (entero hemorrh agic Ecoli-E BENJI) due tolack of growth in gram negativ e enrichm ent broth. OVA AND PARASITE Observa Value Referen Units Interpr Notes Date tion ce etation Range OVA AND SEE No No No Ova + May 9 BELOW informa informa informa Parasit 2016 PARASIT tion in tion in tion in e Exam 8:30 AM E source source source data data data Final report CBThese results were obtaine d using wet prepara tion(s) and trichro mestain ed smear. This test does not include testing for Cryptos poridiu mparvum , Cyclosp ora, or Microsp oridia. Result 1 CBNo ova, cysts, or parasit es seen.Pe rformed at: , [facility] [address], [id number] [place] [address] gregory rodgers, PhD, Phone: [phone] CLOSTRIDIUM DIFFICILE PCR Observa Value Referen Units Interpr Notes Date tion ce etation Range Clostri Toxigen No No No No Nov 9 dium ic C. informa informa informa informa 2016 diffici diffici tion in tion in tion in tion in 8:30 AM le le source source source source toxin NEGATIV data data data data genes E [Presen ce] in Stool by Probe & target amplifi cation method Clostri No No No No Nov 9 dium informa informa informa informa 2016 diffici tion in tion in tion in tion in 8:30 AM le source source source source toxin data data data data genes [Presen ce] in Stool by Probe & target amplifi cation method Clostri C. No No No No Nov 9 dium diffici informa informa informa informa 2016 diffici le tion in tion in tion in tion in 8:30 AM le target source source source source toxin DNA data data data data genes sequenc [Presen es are ce] in not Stool detecte by d. Probe & target amplifi cation method Clostri No No No No Nov 9 dium informa informa informa informa 2016 diffici tion in tion in tion in tion in 8:30 AM le source source source source toxin data data data data genes [Presen ce] in Stool by Probe & target amplifi cation method Clostri A No No No No Nov 9 dium single informa informa informa informa 2016 diffici negativ tion in tion in tion in tion in 8:30 AM le e test source source source source toxin for data data data data genes Clostri [Presen dium ce] in diffici Stool le by means Probe & the target amplifi cation method Clostri likelih No No No No Nov 9 dium ood informa informa informa informa 2016 diffici that tion in tion in tion in tion in 8:30 AM le this source source source source toxin organis data data data data genes m is [Presen causing ce] in the Stool diarrhe by al Probe & target amplifi cation method Clostri illness No No No No Nov 9 dium is informa informa informa informa 2016 diffici extreme tion in tion in tion in tion in 8:30 AM le ly low. source source source source toxin data data data data genes Therefo [Presen re ce] in repeat Stool testing by is Probe & target amplifi cation method Clostri strongl No No No No Nov 9 dium y informa informa informa informa 2016 diffici discour tion in tion in tion in tion in 8:30 AM le aged. source source source source toxin If a data data data data genes new [Presen diarrhe ce] in al Stool illness by occurs Probe & target amplifi cation method Clostri more No No No No Nov 9 dium that 7 informa informa informa informa 2016 diffici days tion in tion in tion in tion in 8:30 AM le after source source source source toxin the data data data data genes prior [Presen negativ ce] in e test, Stool then by Probe & target amplifi cation method Clostri sending No No No No Nov 9 dium a informa informa informa informa 2016 diffici SINGLE tion in tion in tion in tion in 8:30 AM le repeat source source source source toxin specime data data data data genes n may [Presen be ce] in indicat Stool ed. by Probe & target amplifi cation method Clostri referen No No No ORDER#: May 9 dium ce informa informa informa 2016 diffici range = tion in tion in tion in [id number] 8:30 AM le source source source 7 toxin NEGATIV data data data genes E. [Presen ce] in ORDERED Stool BY: by PORTILLO Probe & , target JAMIESO URCE: amplifi STOOL/F cation ECES method COLLECT ED: 6 08:30AN CUAUHTEMOC CS AT [facility] RECEIVE D : 6 12:34CL OSTRIDI UM DIFFICI LE PCR FINAL 6 14:4511 /03/27 Toxigen ic C. diffici le NEGATIV EC. diffici le target DNA sequenc es are not detecte d.A single negativ e test for Clostri dium diffici le means thelike lihood that this organis m is causing the diarrhe alillne ss is extreme ly low. Therefo re repeat testing isstron gly discour aged. If a new diarrhe al illness occursm ore that 7 days after the prior negativ e test, thensen ding a SINGLE repeat specime n may be indicat ed.refe rence range = NEGATIV E. CAMPYLOBACTER ANTIGEN Observa Value Referen Units Interpr Notes Date tion ce etation Range CAMPYLO NEGATIV No No No No May 9 BACTER E FOR informa informa informa informa 2016 ANTIGEN CAMPYLO tion in tion in tion in tion in 8:30 AM BACTER source source source source ANTIGEN data data data data CAMPYLO REFEREN No No No ORDER#: May 9 BACTER CE informa informa informa 2015 ANTIGEN RANGE = tion in tion in tion in [id number] 8:30 AM source source source 9 NEGATIV data data data E ORDERED BY: DEVANG NATH URCE: STOOL/F ECES COLLECT ED: 6 08:30AN TIBIOTI CS AT [place] RECEIVE D : 6 12:35CA MPYLOBA CTER ANTIGEN FINAL 6 13:221 NEGATIV E FOR CAMPYLO BACTER ANTIGEN REFEREN CE RANGE = NEGATIV E XR Femur LT Observa Value Referen Units Interpr Notes Date tion ce etation Range \\.br\\LE No No No No Apr 5 FT informa informa informa informa 2015 FEMUR, tion in tion in tion in tion in 10:59 MULTIPL source source source source AM E data data data data VIEWS\\. br\\\\.br \\The patient is again noted to be status post left femur ORIF. Anatomi c alignme nt is maintai aleksandra. No evidenc e of hardwar e complic ation.\\ .br\\\\.b r\\ IMPRESS ION: Status post left femur ORIF project ing in anatomi c alignme nt without evidenc e of hardwar e complic ation.\\ .br\\\\.b r\\ END OF REPORT* *\\.br\\\\ .br\\Bra юлия Montoya M.D.\\.b r\\\\.br\\ Dictate d: 04/15/20 11:43 AM\\.br\\ \\.br\\Tr anscrib ed: 04/15/20 12:50 PM\\.br\\ \\.br\\ * Final Report \\.br \\\\.br\\D ictated : Channing Montoya 11:43 am\\.br\\ \\.br\\Tr anscrib ed by: RN 12:51 pm\\.br\\ \\.br\\Au thentic ated by: Channing Montoya 10/05/2 016 1:05 pm\\.br\\ \\.br\\ XR Hip 2-3 Views LT Observa Value Referen Units Interpr Notes Date tion ce etation Range TEXT Need No No No No Apr 15 DIAGNOS xray of informa informa informa informa 2016 IS left tion in tion in tion in tion in 10:59 BATTERY not source source source source AM right, data data data data no left xray availab le in nexgen\\ .br\\\\.b r\\\\.br\\ LEFT HIP - MULTIPL E VIEWS\\. br\\\\.br \\COMPAR GUICHO: None.\\. br\\\\.br \\No fractur e or disloca tion. No aggress michael bony change. Mild osteope hay and hip osteoar throsis noted.\\ .br\\\\.b r\\Prior ORIF of the femur noted. 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 No fractur e or malalig nment.\\ .br\\\\.b r\\ END OF REPORT* *\\.br\\\\ .br\\Bra юлия Montoya M.D.\\.b r\\\\.br\\ Dictate d: 04/15/20 16 11:17 AM\\.br\\ \\.br\\Tr anscrib ed: 04/15/20 16 12:25 PM\\.br\\ \\.br\\ * Final Report \\.br \\\\.br\\D ictated : Channing Montoya 11:17 am\\.br\\ \\.br\\Tr anscrib ed by: MH 12:26 pm\\.br\\ \\.br\\Au thentic ated by: Channing Montoya 1:00 pm\\.br\\ \\.br\\ XR Ankle Complete Right Observa Value Referen Units Interpr Notes Date tion ce etation Range \\.br\\RI No No No No Apr 15 GHT informa informa informa informa 2016 ANKLE - tion in tion in tion in tion in 10:59 source source source source AM MULTIPL data data data data E VIEWS\\. br\\\\.br \\COMPAR GUICHO: None.\\. br\\\\.br \\No fractur e or disloca tion. No aggress michael bony change. No radiopa que foreign bodies. \\.br\\\\. br\\ IMPRESS ION: Unremar kable right ankle. No fractur e or disloca tion.\\. br\\\\.br \\ END OF REPORT* *\\.br\\\\ .br\\Bra юлия Montoya M.D.\\.b r\\\\.br\\ Dictate d: 04/15/20 11:16 AM\\.br\\ \\.br\\Tr anscrib ed: 04/15/20 12:23 PM\\.br\\ \\.br\\ * Final Report \\.br \\\\.br\\D ictated : Channing Montoya 11:16 am\\.br\\ \\.br\\Tr anscrib ed by: 12:25 pm\\.br\\ \\.br\\Au thentic ated by: Channing Montoya 1:00 pm\\.br\\ \\.br\\ XR Knee 3 Views Left Observa Value Referen Units Interpr Notes Date tion ce etation Range \\.br\\LE No No No No Oct 5 FT KNEE informa informa informa informa 2016 - tion in tion in tion in tion in 10:59 MULTIPL source source source source AM E data data data data VIEWS\\. br\\\\.br \\COMPAR GUICHO: None.\\. br\\\\.br \\No fractur e or disloca tion. No aggress michael bony change. Prior femur ORIF, incompl etely evaluat ed. There is mild joint space narrowi ng and osteoph ytosis. \\.br\\\\. 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 No fractur e or disloca tion.\\. br\\\\.br \\ END OF REPORT* *\\.br\\\\ .br\\Bra юлия Montoya M.D.\\.b r\\\\.br\\ Dictate d: 04/15/20 11:16 AM\\.br\\ \\.br\\Tr anscrib ed: 04/15/20 12:29 PM\\.br\\ \\.br\\ * Final Report \\.br \\\\.br\\D ictated : Channing Montoya 11:16 am\\.br\\ \\.br\\Tr anscrib ed by: 12:30 pm\\.br\\ \\.br\\Au thentic ated by: Jan Channing 1:00 pm\\.br\\ \\.br\\ XR Femur Left Observa Value Referen Units Interpr Notes Date tion ce etation Range \\.br\\LE No No No No Jun 10 FT informa informa informa informa 2014 FEMUR\\. tion in tion in tion in tion in 12:28 br\\\\.br source source source source PM \\A data data data data surgica l antonino is seen transve rsing a healed distal femoral diaphys eal fractur e. Alan e is intact, alignme nt is anatomi c. No other osseous or articul ar abnorma lities are identif ied.\\.b r\\\\.br\\ IMPRESS ION: Intact alan e with anatomi c alignme nt.\\.br \\\\.br\\ END OF REPORT* *\\.br\\\\ .br\\Melquiades david Lane M.D.\\.b r\\\\.br\\ Dictate d: 12:45 PM\\.br\\ \\.br\\Tr anscrib ed: 12:56 PM\\.br\\ \\.br\\ * Final Report \\.br \\\\.br\\D ictated : ADDY LANE M.D. 12:45 pm\\.br\\ \\.br\\Tr anscrib ed by: 12:56 pm\\.br\\ \\.br\\Au thentic ated by: ADDY LANE M.D. 1:04 pm\\.br\\ \\.br\\ TYPE AND SCREEN Observa Value Referen Units Interpr Notes Date tion ce etation Range TYPE TEXT~Na No No No No Oct 6 AND me: informa informa informa informa 2015 SCREEN ASAF, tion in tion in tion in tion in 7:00 AM CRYSTAL source source source source ~Acct: data data data data [id number]~ABO A 5 07:59 lls~RH( D) TYPING POS 5 07:59 lls~ANT IBODY SCREEN NEG 5 08:26 sdh~AUT OCONTRO L 5 07:37 SDH~. SURGICAL PATH-RESULTS Observa Value Referen Units Interpr Notes Date tion ce etation Range SURGICA TEXT~Na No No No No Oct 6 L me: informa informa informa informa 2015 PATH-RE ASAF, tion in tion in tion in tion in SULTS CRYSTAL source source source source ~Acct: data data data data [id number]~ [facility] Patholo gy [address] [facility], [facility]82 [phone]~ Name: Dk RONN: [id number] [address]~ ERIC Rossy #:~ FINAL SURGICA L PATHOLO GY REPORT~ NAME: ERIC RON LOCATIO N: 4E~M.R. N: [id number] SEX: F PROCEDU RE 015~ DATE:~D OB: 977 AGE: 39 Y RECEIVE D 015~ DATE:~P HYSICIA N: KANIKA MORALES SIGN OUT DATE: 015~DAYANARA LING #: [id number] COPIES TO: KANIKA MORALES~P ATHOLOG IST: TIM CAMPUZANO~DI AGNOSIS ~Uterus and cervix, hystere ctomy:~ Cervix: No signifi cant patholo gic abnorma lities. ~ Endomet rium: Mixed phase pattern of endomet rium with prolife rative~ and secreto ry changes .~ Myometr ium: Adenomy osis.~ Serosa: No signifi cant patholo gic abnorma lities. ~TISSUE SUBMITT ED UTERUS, SURGICA L EXCISIO N~ Uterus& cervix~ CLINICA L INFORMA TION~ PRE AND POST-OP DIAGNOS IS: Dysfunc tional uterine bleedin g~GROSS DESCRIP TION~A single specime n is receive d in formali n labeled "uterus and cervix" ~and consist s of the aforeme ntioned weighin g 106.2 grams and measuri ng~9.5 cm from superio r to inferio r, 7 cm in width, and 4 cm from anterio r~to posteri or. The cervix measure s 3 cm in diamete r and has a central ~ovoid os measuri ng 1 x 0.5 cm. The externa l surface is pink-ta n,~smoo th, and unremar kable. The specime n is opened longitu dinally to~reve al a pink-ta n, lush endomet rial cavity measuri ng 3.5 x 1.5 cm. The~end ocervic al canal measure s 3.5 x 0.5 cm. The endomyo metrium is~sect ioned to reveal a pink-ta n, unremar kable parench yma. Represe ntative ~sectio ns are submitt ed as follows : cervix in [facility] es 1A-1B,~ endomyo metrium in [facility] es 1C-1D.~ 04/17/15 [facility]~JACE ROSCOPI C DESCRIP TION~Mi croscop ic examina tion was perform ed.~N80 .0, N93.8~ <Sign Out Dr. Colbert re>~ JOSE CALLAHAN GIST~ Page 1 of 1 TSH Observa Value Referen Units Interpr Notes Date tion ce etation Range Thyrotr 1.280 0.358 - uIU/ML No No Mar 08 opin 3.740 informa informa 2014 [Units/ tion in tion in 12:20 volume] source source PM in data data Serum or Plasma by Detecti on limit <= 0.005 mU/L GLOMELULAR JANES. RATE,CALC. Observa Value Referen Units Interpr Notes Date tion ce etation Range Physician is not a Physician's Portal User Glomeru 80.1 60.0 - ml/min No THE Feb 18 lar 200.0 informa eGFR IS 2014 filtrat tion in AN 3:25 PM ion source ESTIMAT rate/1. data ED 73 sq M GLOMELU LAR predict FILTRAT ed ION among RATEBAS non-rimma ED ON cks by AN Creatin AVERAGE ine-bas BODY ed SURFACE formula AREA (MDRD) OF 1.73M2. THIS CALCULA TION IS NOT ACCURAT E FOR PEDIATR IC PATIENT S,PATIE NTS >70 YEARS OF AGE,OR PATIENT S WITH EXTREME BODY SIZE.>6 0 ML/MIN/ 1.73M2 = NORMAL< 60 ML/MIN/ 1.73M2 = CHRONIC KIDNEY DISEASE <15 ML/MIN/ 1.73M2 = KIDNEY FAILURE AVERAGE EGFR FOLLOWS :AGE(YE ARS) AVERAGE EGFR20- 39 116 ML/MIN3 0-39 107 ML/MIN4 0-49 99 ML/MIN5 0-59 93 ML/MIN6 0-69 85 ML/MIN LDL Observa Value Referen Units Interpr Notes Date tion ce etation Range Physician is not a Physician's Portal User Cholest 78.4 0.0 - No No OPTIMAL Feb 18 alf in 100.0 informa informa - < 2015 LDL tion in tion in 100 3:25 PM [Mass/v source source MG/DLNE olume] data data AR in OPTIMAL Serum / or ABOVE Plasma OPTIMAL by - < calcula 130 tion MG/DLBO RDERLIN E HIGH - 130-159 MG/DLHI GH - 160-189 MG/DLVE RY HIGH - > 189 MG/DL COMP. METABOLIC PANEL (CHEM 12) Observa Value Referen Units Interpr Notes Date tion ce etation Range Physician is not a Physician's Portal User Glucose 95 70 - MG/DL No No Feb 18 110 informa informa 2014 [Mass/v tion in tion in 3:25 PM olume] source source in data data Serum or Plasma Urea 12 7 - 18 MG/DL No No Feb 18 nitroge informa informa 2014 n tion in tion in 3:25 PM [Mass/v source source olume] data data in Serum or Plasma Sodium 135 133 - mmol/L No No Feb 18 [Moles/ 144 informa informa 2014 volume] tion in tion in 3:25 PM in source source Serum data data or Plasma Potassi 3.0 3.6 - mmol/l Low No Feb 18 um 5.2 informa 2014 [Moles/ tion in 3:25 PM volume] source in data Serum or Plasma Chlorid 101 98 - mmol/l No No Feb 18 e 107 informa informa 2014 [Moles/ tion in tion in 3:25 PM volume] source source in data data Blood Carbon 29 21 - 32 mmol/L No No Feb 18 dioxide informa informa 2014 , total tion in tion in 3:25 PM source source [Moles/ data data volume] in Serum or Plasma Creatin 0.8 0.6 - MG/DL No Feb 18 ine 1.3 informa informa 2014 [Mass/v tion in tion in 3:25 PM olume] source source in data data Serum or Plasma Protein 7.8 6.4 - G/DL No Feb 18 8.4 informa informa 2014 [Mass/v tion in tion in 3:25 PM olume] source source in data data Serum or Plasma Albumin 3.9 3.4 - G/DL No Feb 18 5.0 informa informa 2014 [Mass/v tion in tion in 3:25 PM olume] source source in data data Serum or Plasma Globuli 3.9 2.4 - G/DL No Feb 18 n 4.8 informa informa 2014 [Mass/v tion in tion in 3:25 PM olume] source source in data data Plasma Albumin 1.0 0.6 - No No Feb 18 /Globul 1.6 informa informa informa 2015 in tion in tion in tion in 3:25 PM [Mass source source source ratio] data data data in Serum or Plasma Calcium 9.1 8.5 - MG/DL No Feb 18 10.1 informa informa 2014 [Mass/v tion in tion in 3:25 PM olume] source source in data data Serum or Plasma Alkalin 79 45 - U/L No No Feb 18 e 117 informa informa 2014 phospha tion in tion in 3:25 PM tase source source [Enzyma data data tic activit y/volum e] in Serum or Plasma Asparta 9 15 - 37 U/L Low No Feb 18 te informa 2014 aminotr tion in 3:25 PM ansfera source se data [Enzyma tic activit y/volum e] in Serum or Plasma Alanine 29 12 - 78 U/L No No Feb 18 informa informa 2015 aminotr tion in tion in 3:25 PM ansfera source source se data data [Enzyma tic activit y/volum e] in Serum or Plasma Bilirub 0.30 0.00 - MG/DL No No Feb 18 in.tota 1.00 informa informa 2014 l tion in tion in 3:25 PM [Mass/v source source olume] data data in Serum or Plasma TSH Observa Value Referen Units Interpr Notes Date ti ce etation Range Physician is not a Physician's Portal User Thyrotr 0.948 0.358 - uIU/ML No No Feb 18 opin 3.740 informa informa 2014 [Units/ tion in tion in 3:25 PM volume] source source in data data Serum or Plasma by Detecti on limit <= 0.005 mU/L LIPID PROFILE Observa Value Referen Units Interpr Notes Date ti ce etation Range Physician is not a Physician's Portal User Triglyc 173 30 - MG/DL No NORMAL Feb 18 eride 200 informa <150 2014 [Mass/v tion in MG/DLBO 3:25 PM olume] source RDER in data HIGH Serum 150 - or 199 Plasma MG/DLHI GH >200 MG/DL Cholest 166 <200 MG/DL No No Feb 18 alf informa inform2014 [Mass/v tion in tion in 3:25 PM olume] source source in data data Serum or Plasma Cholest 53 39 - 60 MG/DL No No Feb 18 alf in informa inform2014 HDL tion in tion in 3:25 PM [Mass/v source source olume] data data in Serum or Plasma VITAMIN D, TOTAL Observa Value Referen Units Interpr Notes Date ti count [facility] Physician is not a Physician's Portal User Calcidi 18.1 30.0 - ng/ml Low TARGET Feb 18 ol+Calc 100.0 RANGES 2015 iferol ARE FOR 3:25 PM [Mass/v ALL olume] AGE in GROUPS. Serum or Plasma CBC\\T\\AUTO DIFF Observa Value Referen Units Interpr Notes Date ti etation Range Physician is not a Physician's Portal User Leukocy 15.9 3.0 - K/UL High No Feb 18 josephine 11.3 inform2014 [#/volu tion in 3:25 PM me] in source Blood data by Automat ed count Erythro 5.200 3.450 - M/ul No No Feb 18 cytes 5.400 informa informa 2014 [#/volu tion in tion in 3:25 PM me] in source source Blood data data by Automat ed count Hemoglo 16.4 10.0 - gm/dl High No Feb 18 bin 16.0 informa 2015 [Mass/v tion in 3:25 PM olume] source in data Blood Hematoc 49.2 29.9 - % High No Feb 18 rit 45.5 informa 2015 [Volume tion in 3:25 PM source Fractio data n] of Blood by Automat ed count Erythro 94.7 78.2 - fl No No Feb 18 cyte 101.8 informa informa 2015 mean tion in tion in 3:25 PM corpusc source source ular data data volume [Entiti c volume] by Automat ed count Erythro 31.5 26.4 - pg No No Feb 18 cyte 33.3 informa informa 2015 mean tion in tion in 3:25 PM corpusc source source ular data data hemoglo bin [Entiti c mass] by Automat ed count Erythro 33.2 32.5 - g/dl No No Feb 18 cyte 35.3 informa informa 2015 mean tion in tion in 3:25 PM corpusc source source ular data data hemoglo bin concent ration [Mass/v olume] by Automat ed count Erythro 14.3 10.1 - % No No Feb 18 cyte 16.2 informa informa 2015 distrib tion in tion in 3:25 PM ution source source width data data [Ratio] by Automat ed count Platele 265 122 - K/UL No No Feb 18 ts 454 informa informa 2015 [#/volu tion in tion in 3:25 PM me] in source source Blood data data by Automat ed count Platele 11.2 6.4 - fl High No Feb 18 t mean 10.4 informa 2015 volume tion in 3:25 PM [Entiti source c data volume] in Blood by Automat ed count Neutrop 71.2 43.0 - % No No Feb 18 hils/10 83.0 informa informa 2015 0 tion in tion in 3:25 PM leukocy source source josephine in data data Blood by Automat ed count Lymphoc 23.7 10.0 - % No No Feb 18 ytes/10 42.0 informa informa 2015 0 tion in tion in 3:25 PM leukocy source source josephine in data data Blood by Automat ed count Monocyt 4.1 1.0 - % No No Feb 18 es/100 14.0 informa informa 2014 leukocy tion in tion in 3:25 PM josephine in source source Blood data data by Automat ed count Eosinop 0.6 0.0 - % No No Feb 18 hils/10 11.0 informa informa 2015 0 tion in tion in 3:25 PM leukocy source source josephine in data data Blood by Automat ed count Basophi 0.4 0.0 - % No No Feb 18 ls/100 2.0 informa informa 2015 leukocy tion in tion in 3:25 PM josephine in source source Blood data data by Automat ed count Neutrop 11.3 2.7 - K/ul High No Feb 18 hils 6.9 informa 2014 [#/volu tion in 3:25 PM me] in source Blood data by Automat ed count Lymphoc 3.8 0.4 - K/ul No No Feb 18 ytes 3.9 informa informa 2014 [#/volu tion in tion in 3:25 PM me] in source source Blood data data by Automat ed count Monocyt 0.7 0.2 - K/ul High No Feb 18 es 0.6 informa 2014 [#/volu tion in 3:25 PM me] in source Blood data by Automat ed count Eosinop 0.1 0.0 - K/ul No No Feb 18 hils 0.9 informa informa 2014 [#/volu tion in tion in 3:25 PM me] in source source Blood data data by Automat ed count Basophi 0.1 0.0 - K/ul No No Feb 18 ls 0.2 informa informa 2014 [#/volu tion in tion in 3:25 PM me] in source source Blood data data by Automat ed count URINALYSIS COMPLETE Observa Value Referen Units Interpr Notes Date tion ce etation Range Physician is not a Physician's Portal User Color YELLOW No No No No Feb 18 of informa informa informa informa 2015 Urine tion in tion in tion in tion in 3:19 PM source source source source data data data data Clarity CLEAR No No No No Feb 18 of informa informa informa informa 2015 Urine tion in tion in tion in tion in 3:19 PM source source source source data data data data Glucose NEGATIV NEGATIV MG/DL No No Feb 18 E E informa informa 2014 [Presen tion in tion in 3:19 PM ce] in source source Urine data data by Automat ed test strip Bilirub NEGATIV NEGATIV No No No Feb 18 in E E informa informa informa 2014 [Presen tion in tion in tion in 3:19 PM ce] in source source source Urine data data data by Automat ed test strip Ketones NEGATIV NEGATIV MG/DL No No Feb 18 E E informa informa 2014 [Presen tion in tion in 3:19 PM ce] in source source Urine data data by Automat ed test strip Specifi 1.024 1.006 - No No No Feb 18 c 1.035 informa informa informa 2015 gravity tion in tion in tion in 3:19 PM of source source source Urine data data data by Automat ed test strip Erythro NEGATIV NEGATIV No No No Feb 18 cytes E E informa informa informa 2014 [Presen tion in tion in tion in 3:19 PM ce] in source source source Urine data data data by Automat ed pH of 6.0 5.0 - No No No Feb 18 Urine 9.0 informa informa informa 2015 by tion in tion in tion in 3:19 PM Automat source source source ed test data data data strip Protein NEGATIV NEGATIV MG/DL No No Feb 18 E E informa informa 2014 [Presen tion in tion in 3:19 PM ce] in source source Urine data data by Automat ed test strip UROBILI 1.0 0.2 - E.U./DL No No Feb 18 NOGEN 1.0 informa informa 2015 tion in tion in 3:19 PM source source data data Nitrate NEGATIV NEGATIV No No No Feb 18 E E informa informa informa 2014 [Presen tion in tion in tion in 3:19 PM ce] in source source source Urine data data data Leukocy NEGATIV NEGATIV No No No Feb 18 josephine E E informa informa informa 2014 [Presen tion in tion in tion in 3:19 PM ce] in source source source Urine data data data by Automat ed Erythro 2 0 - 4 /HPF No No Feb 18 cytes informa informa 2014 [#/area tion in tion in 3:19 PM ] in source source Urine data data sedimen t by Microsc opy high power field WBC 1 0 - 5 /HPF No No Feb 18 COUNT informa informa 2015 tion in tion in 3:19 PM source source data data Epithel 1 0 - 6 /HPF No No Feb 18 ial informa informa 2014 cells tion in tion in 3:19 PM [Presen source source ce] in data data Urine sedimen t by Light microsc opy Bacteri NEGATIV NEGATIV /HPF No BACTERI Feb 18 a E E informa A 2014 [#/area tion in INTERPR 3:19 PM ] in source ETATION Urine data :NEGATI sedimen VE t by <=599/u Microsc lTRACE opy high >=600, power <=1199/ field ul1+ >=1200, <=2399/ ul2+ >=2400, <=3599/ ul3+ >=3600, <=4799/ ul4+ >=4800/ ul Hyaline 2 0 - 4 /LPF No No Feb 18 casts informa informa 2014 [#/area tion in tion in 3:19 PM ] in source source Urine data data sedimen t by Microsc opy high power field MRI Spine Lumbar w/o Contrast Observa Value Referen Units Interpr Notes Date tion ce etation Range \\.br\\MR No No No No Jan 14 I informa informa informa informa 2015 LUMBOSA tion in tion in tion in tion in 11:12 CRAL source source source source AM SPINE\\. data data data data br\\\\.br \\Detail of the exam is reduced by patient 's size and motion. \\.br\\\\. br\\Ther e is slight disk space narrowi ng at L3-L4 and L4-L5. There is desicca tion of the distal materia l at the same levels and also at L5-S1. No herniat ed disks are seen. Spinal canal is normal in caliber . Conus medulla ris ends at L1.\\.br \\\\.br\\ IMPRESS ION: Mild degener ative change, lower lumbar spine. No herniat ed disks seen.\\. br\\\\.br \\ END OF REPORT* *\\.br\\\\ .br\\Den michael Pfeiffer M.D.\\.b r\\\\.br\\ Dictate d: 5 11:50 AM\\.br\\ \\.br\\Tr anscrib ed: 11:54 AM\\.br\\ \\.br\\ * Final Report \\.br \\\\.br\\D ictated : SRIKANTH PFEIFFER M.D. 11:50 am\\.br\\ \\.br\\Tr anscrib ed by: RN 11:54 am\\.br\\ \\.br\\Au thentic ated by: SRIKANTH PFEIFFER M.D. 12:32 pm\\.br\\ \\.br\\ XR Hip Complete Left Observa Value Referen Units Interpr Notes Date tion ce etation Range \\.br\\LE No No No No Dec 18 FT informa informa informa informa 2015 HIP\\.br tion in tion in tion in tion in 9:15 AM \\\\.br\\A source source source source data data data data surgica l antonino and screw is seen transve rsing the left femur. The visuali zed aspects of the hardwar e appear intact. Alignme nt appears anatomi c. Arthrit ic changes are present . No other osseous or articul ar abnorma lities are identif ied.\\.b r\\\\.br\\ IMPRESS ION: No evidenc e of acute abnorma lity.\\. br\\\\.br \\ END OF REPORT* *\\.br\\\\ .br\\Melquiades Lane M.D.\\.b r\\\\.br\\ Dictate d: 12/28/19 15 9:16 AM\\.br\\ \\.br\\Tr anscrib ed: 12/28/19 15 9:54 AM\\.br\\ \\.br\\ * Final Report \\.br \\\\.br\\D ictated : ADDY LANE M.D. 015 9:16 am\\.br\\ \\.br\\Tr anscrib ed by: RN 9:55 am\\.br\\ \\.br\\Au thentic ated by: ADDY LANE M.D. 8:47 am\\.br\\ \\.br\\ XR Spine Lumbosacral Minimum 4 Views Observa Value Referen Units Interpr Notes Date tion ce etation Range \\.br\\MANDI No No No No Dec 27 MBAR informa informa informa informa 2014 SPINE tion in tion in tion in tion in 9:13 AM SERIES\\ source source source source .br\\\\.b data data data data r\\There is mild to moderat e dextros coliosi s. The alignme nt is otherwi se within normal limits. There is mild degener ative disk disease at the L3-L4, L4-L5 and L5-S1 levels. There is mild degener ative joint disease at all levels. The vertebr al bodies otherwi se demonst rate a normal configu ration. \\.br\\\\. 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 015 9:25 am\\.br\\ \\.br\\Tr anscrib ed by: RN 10:07 am\\.br\\ \\.br\\Au thentic ated by: ADDY LANE M.D. 10:31 am\\.br\\ \\.br\\ AEROBIC CULTURE Observa Value Referen Units Interpr Notes Date tion ce etation Range Physician is not a Physician's Portal User Bacteri NO No No No Physici Nov 19 a GROWTH informa informa informa an is 2014 identif tion in tion in tion in not a 10:00 ied in source source source Physici AM Unspeci data data data an's fied Portal specime UserORD n by ER#: Aerobe [id number] culture 4 ORDERED BY: DEVANG NATH URCE: AEROBIC MISC COLLECT ED: 4 10:00AN [facility] CS AT [place].: RECEIVE D : 4 19:55AE ROBIC CULTURE FINAL 4 09:3111 NO GROWTH
--- OUTSIDE RECORDS SUMMARY | 2017-02-23 17:35 | External Medical Summary Rpt ---
[...] in tion in tion in tion in [id number] 8:30 AM ied in gram source source [...] parasit es seen.Pe rformed at: , [facility] [address], [id number] [place] [address] gregory rodgers, PhD, Phone: [phone] CLOSTRIDIUM DIFFICILE PCR Observa Value Referen Units [...] = tion in tion in tion in [id number] 8:30 AM le source source source 7 [...] = tion in tion in tion in [id number] 8:30 AM source source source 9 NEGATIV [...] source source ~Acct: data data data data [id number] [id number]~ABO A 5 07:59 lls~RH( D) TYPING [...] source source ~Acct: data data data data [id number]~ [facility] Depart ent of Patholo gy [address] [facility], [facility]83 [phone]~ Name: Dk RONN: [id number] [address]~ ERIC Rossy #:~ FINAL SURGICA L PATHOLO GY REPORT~ NAME: ERIC RON LOCATIO N: 4E~M.R. N: [id number] SEX: F PROCEDU RE 015~ DATE:~D OB: 977 AGE: 39 Y RECEIVE D 015~ DATE:~P HYSICIA N: KANIKA MORALES SIGN OUT DATE: 015~DAYANARA LING #: [id number] COPIES TO: KANIKA MORALES~P ATHOLOG IST: [...] submitt ed as follows : [facility],~ [facility] 1C-1D.~ 04/17/15 ch [facility]~JACE ROSCOPI [...] Value Referen Units Interpr Notes [facility] is not a Physician's Portal [...] Portal specime UserORD n by ER#: Aerobe [id number] culture 4 ORDERED BY: DEVANG NATH URCE: AEROBIC MISC COLLECT ED: 4 10:00AN [facility]EMOC CS AT [place] RECEIVE D : 4 19:55AE ROBIC CULTURE FINAL 4 09:3111 NO GROWTH
[2017-02-23 18:29] VITALS: BP 168/87
== END 2017-02-23 18:36 | disposition still patient (30) ==
LOC: ER 16:23
DX: G40.909 Epilepsy, unspecified, not intractable, without status epilepticus (principal); D43.0 Neoplasm of uncertain behavior of brain, supratentorial; I10 Essential (primary) hypertension; F41.8 Other specified anxiety disorders; Z72.0 Tobacco use; Z79.899 Other long term (current) drug therapy
CPT/HCPCS: J1953

== ENCOUNTER → 2017-04-07 | Outpatient (CLI) | payer MEDICAID ==
--- NOTE | 2017-04-07 16:13 | RADIOLOGY REPORT PS360 ---
US PELVIS-TRANSVAGINAL ONLY HISTORY: PELVIC PAIN ORDERING PHYSICIAN: Toy Aragon MD PATIENT AGE: 41 years COMPARISON: None FINDINGS: Has been prior hysterectomy. Vaginal cuff is an unremarkable appearance. The left ovary is 1.9 x 1.8 cm. The right ovary is 1.5 x 1.7 cm and contains a small cyst at 0.7 cm. No cul-de-sac fluid. IMPRESSION: 1. Prior hysterectomy. 2. Small right ovarian cyst otherwise
== END ==
LOC: RAD 12:52
DX: N95.1 Menopausal and female climacteric states (principal); R10.2 Pelvic and perineal pain

== ENCOUNTER → 2017-04-14 | Outpatient (CLI) | payer MEDICAID ==
[2017-04-14 17:08] LABS: AMPHETAMINES/METAMPHETAMINES NEGATIVE ng/mL (<1000)
== END ==
LOC: LAB 16:00
PROVIDERS: Nurse Practitioner Family
DX: Z79.899 Other long term (current) drug therapy (principal)

== ENCOUNTER → 2017-04-28 | Outpatient (CLI) | payer MEDICAID ==
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
== END ==
LOC: RAD 15:37
DX: R10.2 Pelvic and perineal pain (principal); M25.552 Pain in left hip